=== PATIENT | male | born 1940 | race Caucasian/White ===

== ENCOUNTER 2016-10-16 12:46 | Outpatient (CLI) | payer MEDICARE, OTHER | END 2016-10-16 12:47 | disposition home or self-care (01) | DX: E11.8 Type 2 diabetes mellitus with unspecified complications (principal); R60.9 Edema, unspecified ==

== ENCOUNTER 2016-10-21 10:51 | Outpatient (CLI) | payer MEDICARE, OTHER ==
--- NOTE | 2016-10-21 15:16 | XRAY Report ---
TWO VIEW CHEST: 10/21/2016 CLINICAL INDICATION: Dyspnea on exertion. COMPARISON: 06/09/2011. FINDINGS: Frontal and lateral views of the chest demonstrate a normal cardiac silhouette. The lungs are clear. No effusion or pneumothorax is present. IMPRESSION: NORMAL CHEST. JOB #: [id number] EXT JOB #:[id number]
== END 2016-10-21 10:52 | disposition home or self-care (01) ==
LOC: DI.S 10:51
PROVIDERS: ATTEND Nurse Practitioner Family
DX: R06.09 Other forms of dyspnea (principal)
CPT/HCPCS: 71020

== ENCOUNTER 2016-11-20 13:39 | Outpatient (CLI) | payer MEDICARE, OTHER | END 2016-11-20 13:40 | disposition home or self-care (01) | DX: R53.83 Other fatigue (principal); R06.09 Other forms of dyspnea; I10 Essential (primary) hypertension ==

== ENCOUNTER 2016-11-24 13:02 | Outpatient (CLI) | payer MEDICARE, OTHER | END 2016-11-24 13:03 | disposition home or self-care (01) | DX: R53.83 Other fatigue (principal) ==

== ENCOUNTER 2016-12-10 12:26 | Outpatient (CLI) | payer MEDICARE, OTHER ==
[2016-12-10] MEDS ORDERED: ALBUTEROL NEB 2.5 MG/3 ML INH ONE (13:21)
== END 2016-12-10 12:27 | disposition home or self-care (01) ==
DX: R06.00 Dyspnea, unspecified (principal)
CPT/HCPCS: 94060; 94729; J7613

== ENCOUNTER 2016-12-22 09:41 | Outpatient (CLI) | payer MEDICARE, OTHER | END 2016-12-22 09:42 | disposition home or self-care (01) | DX: N18.3 Chronic kidney disease, stage 3 (moderate) (principal); E11.40 Type 2 diabetes mellitus with diabetic neuropathy, unspecified ==

== ENCOUNTER 2017-01-04 12:56 | Outpatient (CLI) | payer MEDICARE, OTHER | END 2017-01-04 12:57 | disposition home or self-care (01) | DX: D70.9 Neutropenia, unspecified (principal); N05.9 Unspecified nephritic syndrome with unspecified morphologic changes; R80.9 Proteinuria, unspecified ==

== ENCOUNTER 2017-01-28 12:29 | Outpatient (CLI) | payer MEDICARE, OTHER ==
--- NOTE | 2017-01-28 15:56 | CT Report ---
CT OF THE ABDOMEN AND PELVIS WITHOUT CONTRAST: 01/28/2017 CLINICAL INDICATION: Hematuria. TECHNIQUE: Axial CT images of the abdomen and pelvis were obtained without intravenous contrast. No p revious CT is available for comparison. FINDINGS: Limited evaluation of the lung bases demonstrates a 5 mm nodule in the posterior right low er lobe, as well as scattered atelectasis. ABDOMEN: The kidneys demonstrate no evidence of nephrolithiasis or hydronephrosis. No hydroureter is seen. A cyst is incidentally noted in the liver. The spleen, pancreas and adrenal glands appear unrem arkable, allowing for the lack of intravenous contrast. Cholelithiasis is present. No bowel dilatatio n, free gas, or free fluid is present. No abdominal adenopathy is appreciated. PELVIS: The appendix is seen in the right lower quadrant, and is normal in caliber. Sigmoid diverticu losis is present, without CT evidence of diverticulitis. No pelvic adenopathy or free fluid is presen t. There is possible focal wall thickening at the dome of the urinary bladder. Consider correlation w ith cystoscopy. The osseous structures demonstrate degenerative changes. IMPRESSION: 1. NO EVIDENCE OF NEPHROLITHIASIS TO EXPLAIN THE PATIENT'S HEMATURIA. CONSIDER FURTHER EVALUATION OF THE KIDNEYS AND COLLECTING SYSTEM WITH CT IVP. 2. POSSIBLE FOCAL THICKENING OF THE BLADDER WALL AT THE DOME. CONSIDER CORRELATION WITH CYSTOSCOPY. In accordance with CT protocol optimization, one or more of the following dose reduction techniques w ere utilized for this exam: automated exposure control, adjustment of mA and/or KV based on patient size, or use of iterative reconstructive technique. JOB #: [id number] EXT JOB #:[id number]
== END 2017-01-28 12:30 | disposition home or self-care (01) ==
LOC: DI 12:29
PROVIDERS: ATTEND Nurse Practitioner Family
DX: R31.21 Asymptomatic microscopic hematuria (principal)
CPT/HCPCS: 74176

== ENCOUNTER 2017-02-16 10:18 | Outpatient (CLI) | payer MEDICARE, OTHER ==
[2017-02-16 18:46] LABS: CALCIUM 8.8 mg/dL (8.5-10.3); CREATININE 2.2 mg/dL (0.6-1.2)
== END 2017-02-16 10:19 | disposition home or self-care (01) ==
LOC: LAB.F 10:18
PROVIDERS: ATTEND Nurse Practitioner Family
DX: R60.0 Localized edema (principal); N18.3 Chronic kidney disease, stage 3 (moderate)
CPT/HCPCS: 36415; 80048

== ENCOUNTER 2017-04-22 12:44 | Outpatient (CLI) | payer MEDICARE, OTHER ==
[2017-04-22 17:59] LABS: CALCIUM 8.9 mg/dL (8.5-10.3); CREATININE 2.3 mg/dL (0.6-1.2); POTASSIUM 4.2 mmol/L (3.5-5.0)
[2017-04-22 18:22] LABS: HEMOGLOBIN A1C 1.08 g/dL
== END 2017-04-22 12:45 | disposition home or self-care (01) ==
LOC: LAB.F 12:44
PROVIDERS: ATTEND Nurse Practitioner Family
DX: E11.9 Type 2 diabetes mellitus without complications (principal)
CPT/HCPCS: 36415; 80048; 83036

== ENCOUNTER 2017-05-27 11:39 | Emergency (ER) | payer MEDICARE, OTHER ==
[2017-05-27] MEDS ORDERED: SODIUM CHLORIDE 0.9% 1,000 ML IV ONE (12:07)
[2017-05-27 12:19] LABS: BASOPHILS # (AUTO) 0.1 10^3/uL (0.0-0.1); BASOPHILS % (AUTO) 0.8 %; EOSINOPHILS # (AUTO) 0.2 10^3/uL (0.0-0.7); EOSINOPHILS % (AUTO) 2.1 %; HCT - HEMATOCRIT 39.8 % (42.0-52.0); HGB - HEMOGLOBIN 13.4 g/dL (14.0-18.0); LYMPHOCYTES # (AUTO) 1.9 10^3/uL (1.5-3.5); LYMPHOCYTES % (AUTO) 21.2 %; MEAN CORPUSCULAR HEMOGLOBIN 29.3 pg (27.0-31.0); MEAN CORPUSCULAR HGB CONC 33.8 g/dL (32.0-36.0); MEAN CORPUSCULAR VOLUME 86.8 fL (80.0-94.0); MEAN PLATELET VOLUME 7.5 fL (7.4-11.4); MONOCYTES # (AUTO) 0.4 10^3/uL (0.0-1.0); MONOCYTES % (AUTO) 4.8 %; NEUTROPHILS # (AUTO) 6.5 10^3/uL (1.5-6.6); NEUTROPHILS % (AUTO) 71.1 %; RED BLOOD COUNT 4.58 10^6/uL (4.70-6.10); RED CELL DISTRIBUTION WIDTH 12.8 % (12.0-15.0); UNCORRECTED WHITE BLOOD COUNT 9.1 x10^3/uL; WHITE BLOOD COUNT 9.1 x10^3/uL (4.8-10.8)
[2017-05-27 12:32] LABS: ALBUMIN/GLOBULIN RATIO 0.9 (1.0-2.2); BILIRUBIN,TOTAL 0.4 mg/dL (0.2-1.0); BUN - BLOOD UREA NITROGEN 47 mg/dL (6-20); CALCIUM 8.9 mg/dL (8.5-10.3); CARBON DIOXIDE - CO2 28 mmol/L (21-32); CHLORIDE 98 mmol/L (101-111); CREATININE 2.4 mg/dL (0.6-1.2); GFR - MDRD 26 (>89); GLUCOSE 465 mg/dL (70-100); LIPASE 30 U/L (22-51); SODIUM 135 mmol/L (135-145); TOTAL PROTEIN 7.4 g/dL (6.7-8.2)
[2017-05-27 12:41] LABS: VBG BASE EXCESS -0.7 mmol/L (-2 - +2); VBG PH 7.273 (7.31-7.41); VBG TOTAL CO2 29.5 mmol/L (24-29)
[2017-05-27 12:42] LABS: VBG OXYGEN SATURATION 56.3 % (60-80)
--- NOTE | 2017-05-27 12:54 | ED Physician Documentation ---
History of Present Illness - Stated complaint Stated Complaint: BLOOD SUGAR HIGH/WEAKNESS - Chief complaint Chief Complaint: General - History obtained from History obtained from: Patient, Family, Friend - History of Present Illness Timing: Other (This is a 76-year-old gentleman with diabetes his blood sugars have been trending up over the last 2 weeks. Few months ago he was stable with most blood sugars in the high 100s but about 2 weeks ago started trending up and is slowly trended up and was up in the 500s last night. He is taking insulin and he has no specific complaints. 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 It has been there for a couple of months. There is no fever or chill, no cough or urinary complaints except for frequency.) Review of Systems Ten Systems: 10 systems reviewed and negative Constitutional: denies: Fever, Chills Nose: denies: Rhinorrhea / runny nose, Congestion Cardiac: denies: Chest pain / pressure, Palpitations Respiratory: denies: Dyspnea, Cough GI: denies: Abdominal Pain, Nausea, Vomiting PD PAST MEDICAL HISTORY - Past Medical History Cardiovascular: Hypertension, High cholesterol Endocrine/Autoimmune: Type 2 diabetes : Benign prostate hypertrophy, Incontinence, Renal insuffiency, Frequency - Present Medications Home Medications: Ambulatory Orders Medication Instructions Recorded Confirmed Furosemide 80 mg PO DAILY 06/07/14 05/27/17 Insulin NPH Human Isophane 30 unit SQ QDBREAKFAST 06/07/14 05/27/17 [Novolin N] Insulin Regular Human [NovoLIN R] 15 units SUBQ DAILY PM 06/07/14 05/27/17 Lisinopril 40 mg PO DAILY 06/07/14 05/27/17 Insulin Regular, Human [Novolin R] 11 unit SUBQ QDBREAKFAST 08/03/14 05/27/17 Carvedilol 12.5 mg PO BID 05/27/17 05/27/17 Insulin NPH Human Isophane 22 unit SUBQ DAILY PM 05/27/17 05/27/17 [Novolin N] - Allergies Allergies/Adverse Reactions: Allergies Allergy/AdvReac Type Severity Reaction Status Date / Time No Known Drug Allergies Allergy Verified 06/07/14 14:32 - Social History Smoking Status: Never smoker PD ED PE NORMAL - Vitals Vital signs reviewed: Yes - General General: Alert and oriented X 3, No acute distress - HEENT HEENT: PERRL, EOMI - Neck Neck: Supple, no meningeal sign, No bony TTP - Cardiac Cardiac: RRR, No murmur - Respiratory Respiratory: No respiratory distress, Clear bilaterally - Abdomen Abdomen: Normal bowel sounds, Soft, Non tender - Back Back: No CVA TTP, No spinal TTP - Derm Derm: Normal color, Warm and dry - Extremities Extremities: No edema, No calf tenderness / cord - Neuro Neuro: Alert and oriented X 3, Normal speech Results - Vitals Vitals: Vital Signs - 24 hr 05/27/17 05/27/17 11:44 13:53 Temperature 36.8 C Heart Rate 89 84 Respiratory 20 18 Rate Blood Pressure 159/96 H 159/78 H O2 Saturation 97 96 Oxygen O2 Source Room air - Labs Labs: Laboratory Tests 05/27/17 05/27/17 05/27/17 11:48 11:52 11:52 WBC 9.1 RBC 4.58 L Hgb 13.4 L Hct 39.8 L MCV 86.8 MCH 29.3 MCHC 33.8 RDW 12.8 Plt Count 246 MPV 7.5 Neut # 6.5 Lymph # 1.9 Solano # 0.4 Eos # 0.2 Baso # 0.1 Absolute Nucleated RBC 0.00 Nucleated RBCs 0.0 VBG pH VBG pCO2 VBG pO2 VBG HCO3 VBG Total CO2 VBG O2 Saturation VBG Base Excess Sodium 135 Potassium 4.0 Chloride 98 L Carbon Dioxide 28 Anion Gap 9.0 BUN 47 H Creatinine 2.4 H Estimated GFR (MDRD) 26 L Glucose 465 H POC Whole Bld Glucose 426 H Calcium 8.9 Total Bilirubin 0.4 AST 25 ALT 17 Alkaline Phosphatase 93 Total Protein 7.4 Albumin 3.5 Globulin 3.9 Albumin/Globulin Ratio 0.9 L Lipase 30 Serum Ketones NEGATIVE 05/27/17 05/27/17 12:33 14:08 WBC RBC Hgb Hct MCV MCH MCHC RDW Plt Count MPV Neut # Lymph # Solano # Eos # Baso # Absolute Nucleated RBC Nucleated RBCs VBG pH 7.273 L VBG pCO2 61.1 H VBG pO2 29.7 VBG HCO3 27.6 VBG Total CO2 29.5 H VBG O2 Saturation 56.3 L VBG Base Excess -0.7 Sodium Potassium Chloride Carbon Dioxide Anion Gap BUN Creatinine Estimated GFR (MDRD) Glucose POC Whole Bld Glucose 320 H Calcium Total Bilirubin AST ALT Alkaline Phosphatase Total Protein Albumin Globulin Albumin/Globulin Ratio Lipase Serum Ketones PD MEDICAL DECISION MAKING - ED course ED course: 76-year-old gentleman presents with uncontrolled blood sugars. There is no evidence of DKA. There is a small lesion on his chest, it looks like a pyogenic granuloma, they were worried about MRSA and a culture was sent. He was administered IV fluids and IV insulin here with improvement in his blood sugar. We will increase his home regimen a bit pending outpatient follow-up. 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 And increase your Novolin R to 12 units in the morning, 17 units in the evening. We are performing a wound culture, the results should be done in 48-72 hours. Your blood pressure was elevated today on check into the emergency department. This does not mean that you have hypertension, it is a common phenomenon to come to the emergency department and have elevated blood pressure. I recommend that she see your primary care physician within the week to have it rechecked when you are feeling better.
[2017-05-27] MEDS ORDERED: INSULIN REGULAR HUMAN 100 UNIT/1 ML 10 ML MDV IVP STA (12:57)
[2017-05-27] MEDS ORDERED: INSULIN REGULAR HUMAN 100 UNIT/1 ML 10 ML MDV ONE (13:03)
[2017-05-27 14:52] VITALS: BP 150/74
== END 2017-05-27 14:51 | disposition home or self-care (01) ==
LOC: ED 11:39
DX: L98.0 Pyogenic granuloma (principal); E11.65 Type 2 diabetes mellitus with hyperglycemia; I10 Essential (primary) hypertension; Z79.4 Long term (current) use of insulin
CPT/HCPCS: 36415; 80053; 82009; 82803; 83690; 85025; 87070; 87205; 96361; 96374; 99283; 99284; J1815

== ENCOUNTER 2017-05-28 14:58 | Outpatient (CLI) | payer MEDICARE, OTHER ==
[2017-05-28 18:48] LABS: BILIRUBIN,TOTAL 0.3 mg/dL (0.2-1.0); BUN - BLOOD UREA NITROGEN 44 mg/dL (6-20); CALCIUM 8.9 mg/dL (8.5-10.3); CARBON DIOXIDE - CO2 28 mmol/L (21-32); CHLORIDE 100 mmol/L (101-111); CHOL/HDL RATIO 4.1 (<5.0); CHOLESTEROL 175 mg/dL; GFR - MDRD 33 (>89); GLUCOSE 397 mg/dL (70-100); HDL CHOLESTEROL 43 mg/dL; POTASSIUM 4.2 mmol/L (3.5-5.0); SODIUM 135 mmol/L (135-145); TOTAL PROTEIN 7.3 g/dL (6.7-8.2); TRIGLYCERIDES 414 mg/dL
[2017-05-28 20:43] LABS: LDL CHOLESTEROL,DIRECT 86 mg/dL
== END 2017-05-28 14:59 | disposition home or self-care (01) ==
LOC: LAB.F 14:58
PROVIDERS: ATTEND Internal Medicine
DX: E11.65 Type 2 diabetes mellitus with hyperglycemia (principal); E78.00 Pure hypercholesterolemia, unspecified; I10 Essential (primary) hypertension
CPT/HCPCS: 36415; 80053; 80061

== ENCOUNTER 2017-06-24 10:57 | Outpatient (CLI) | payer MEDICARE, OTHER ==
--- NOTE | 2017-06-24 13:02 | Ultrasound Report ---
RENAL ULTRASOUND: 06/24/2017 CLINICAL INDICATION: Urinary incontinence. TECHNIQUE: Real-time scanning was performed with enrollment eligibility representative static images obtained. FINDINGS: Right kidney measures 12.1 x 6.0 x 5.4 cm. There is a 1.4 cm cortical cyst. No hydroneph rosis, solid renal lesion, or perinephric collection is seen. The left kidney measures 12.0 x 5.6 x 5.6 cm. No hydronephrosis, solid renal lesion, or perinephric collection is seen. Prevoid, the bladder measures 7.5 x 6.5 x 4.9 cm, yielding a prevoid volume of 125 mL. Bilateral ure teral jets are visualized. No focal bladder wall lesion is seen. The prostate appears prominent, me asuring 6.6 x 5.5 x 4.4 cm. Postvoid residual is 18 mL. IMPRESSION: INCIDENTAL RIGHT RENAL CYST. NO SIGNIFICANT POSTVOID RESIDUAL. JOB #: [id number] EXT JOB #:[id number]
== END 2017-06-24 10:58 | disposition home or self-care (01) ==
LOC: DI 10:57
PROVIDERS: ATTEND Internal Medicine
DX: R32 Unspecified urinary incontinence (principal)
CPT/HCPCS: 76770

== ENCOUNTER 2017-07-29 07:20 | Outpatient (CLI) | payer MEDICARE, OTHER ==
[2017-07-29 12:09] LABS: BUN - BLOOD UREA NITROGEN 30 mg/dL (6-20); CALCIUM 8.5 mg/dL (8.5-10.3); CARBON DIOXIDE - CO2 26 mmol/L (21-32); CHLORIDE 105 mmol/L (101-111); CHOL/HDL RATIO 3.1 (<5.0); CHOLESTEROL 129 mg/dL; GFR - MDRD 33 (>89); GLUCOSE 115 mg/dL (70-100); HDL CHOLESTEROL 42 mg/dL; LDL/HDL RATIO 1.5 (<3.6); POTASSIUM 3.8 mmol/L (3.5-5.0); SODIUM 140 mmol/L (135-145); TRIGLYCERIDES 129 mg/dL; VLDL CHOLESTEROL 26 mg/dL
[2017-07-29 12:12] LABS: HEMOGLOBIN A1C 0.9 g/dL
[2017-07-29 12:20] LABS: THYROID STIMULATING HORMONE 5.74 uIU/mL (0.34-5.60)
== END 2017-07-29 07:21 | disposition home or self-care (01) ==
LOC: LAB.F 07:20
PROVIDERS: ATTEND Nurse Practitioner Family
DX: E11.65 Type 2 diabetes mellitus with hyperglycemia (principal); N18.3 Chronic kidney disease, stage 3 (moderate); E78.5 Hyperlipidemia, unspecified; E03.9 Hypothyroidism, unspecified
CPT/HCPCS: 36415; 80048; 80061; 83036; 84432; 84439; 84443; 86800

== ENCOUNTER 2017-08-19 14:15 | Outpatient (CLI) | payer MEDICARE, OTHER ==
[2017-08-19 18:03] LABS: ALBUMIN/GLOBULIN RATIO 0.8 (1.0-2.2); BILIRUBIN,TOTAL 0.3 mg/dL (0.2-1.0); CALCIUM 8.6 mg/dL (8.5-10.3); CREATININE 2.1 mg/dL (0.6-1.2); POTASSIUM 3.6 mmol/L (3.5-5.0); TOTAL PROTEIN 6.6 g/dL (6.7-8.2)
== END 2017-08-19 14:16 | disposition home or self-care (01) ==
LOC: LAB.F 14:15
PROVIDERS: ATTEND Physician Assistant Medical
DX: E11.40 Type 2 diabetes mellitus with diabetic neuropathy, unspecified (principal)
CPT/HCPCS: 36415; 80053

== ENCOUNTER 2017-08-26 15:18 | Outpatient (CLI) | payer MEDICARE, OTHER ==
[2017-08-26 19:16] LABS: ALBUMIN/GLOBULIN RATIO 0.9 (1.0-2.2); BILIRUBIN,TOTAL 0.2 mg/dL (0.2-1.0); CALCIUM 8.5 mg/dL (8.5-10.3); CREATININE 1.9 mg/dL (0.6-1.2); POTASSIUM 3.8 mmol/L (3.5-5.0)
== END 2017-08-26 15:19 | disposition home or self-care (01) ==
LOC: LAB.F 15:18
PROVIDERS: ATTEND Physician Assistant Medical
DX: E11.22 Type 2 diabetes mellitus with diabetic chronic kidney disease (principal); I50.9 Heart failure, unspecified
CPT/HCPCS: 36415; 80053; 83880

== ENCOUNTER 2017-09-20 10:54 | Outpatient (CLI) | payer MEDICARE, OTHER | END 2017-09-20 10:55 | disposition home or self-care (01) | LOC: LAB.F 10:54 | PROVIDERS: ATTEND Family Medicine | DX: R60.9 Edema, unspecified (principal); I50.9 Heart failure, unspecified; E78.00 Pure hypercholesterolemia, unspecified; E11.22 Type 2 diabetes mellitus with diabetic chronic kidney disease; N18.3 Chronic kidney disease, stage 3 (moderate); E03.9 Hypothyroidism, unspecified; I12.9 Hypertensive chronic kidney disease with stage 1 through stage 4 chronic kidney disease, or unspecified chronic kidney disease ==

== ENCOUNTER 2017-09-21 08:40 | Outpatient (CLI) | payer MEDICARE, OTHER ==
[2017-09-21 19:41] LABS: BASOPHILS % (AUTO) 0.5 %; EOSINOPHILS # (AUTO) 0.6 10^3/uL (0.0-0.7); EOSINOPHILS % (AUTO) 7.3 %; HGB - HEMOGLOBIN 11.9 g/dL (14.0-18.0); LYMPHOCYTES # (AUTO) 2.4 10^3/uL (1.5-3.5); LYMPHOCYTES % (AUTO) 28.1 %; MEAN CORPUSCULAR HGB CONC 32.5 g/dL (32.0-36.0); MEAN CORPUSCULAR VOLUME 89.3 fL (80.0-94.0); MEAN PLATELET VOLUME 8.2 fL (7.4-11.4); MONOCYTES # (AUTO) 0.6 10^3/uL (0.0-1.0); MONOCYTES % (AUTO) 7.6 %; NEUTROPHILS # (AUTO) 4.8 10^3/uL (1.5-6.6); NEUTROPHILS % (AUTO) 56.5 %; PLT - PLATELET COUNT 268 10^3/uL (130-450); RED CELL DISTRIBUTION WIDTH 13.4 % (12.0-15.0); WHITE BLOOD COUNT 8.4 x10^3/uL (4.8-10.8)
[2017-09-21 19:53] LABS: HB2 TOTAL 12.5 g/dL; HEMOGLOBIN A1C 0.59 g/dL; HEMOGLOBIN A1C % 6.5 % (4.6-6.2)
[2017-09-21 20:17] LABS: ALBUMIN/GLOBULIN RATIO 0.9 (1.0-2.2); ALKALINE PHOSPHATASE 84 IU/L (42-121); ALT ALANINE AMINOTRANSFERASE 14 IU/L (10-60); AST ASPARTATE AMINOTRANSFERASE 21 IU/L (10-42); BILIRUBIN,TOTAL 0.2 mg/dL (0.2-1.0); BUN - BLOOD UREA NITROGEN 45 mg/dL (6-20); CALCIUM 8.2 mg/dL (8.5-10.3); CARBON DIOXIDE - CO2 20 mmol/L (21-32); CHLORIDE 111 mmol/L (101-111); CHOL/HDL RATIO 2.8 (<5.0); CHOLESTEROL 128 mg/dL; CREATININE 2.4 mg/dL (0.6-1.2); GFR - MDRD 26 (>89); GLUCOSE 132 mg/dL (70-100); HDL CHOLESTEROL 45 mg/dL; LDL CHOLESTEROL,CALCULATED 57 mg/dL; LDL/HDL RATIO 1.3 (<3.6); SODIUM 140 mmol/L (135-145); TOTAL PROTEIN 6.5 g/dL (6.7-8.2); VLDL CHOLESTEROL 26 mg/dL
== END 2017-09-21 08:41 | disposition home or self-care (01) ==
LOC: LAB.F 08:40
PROVIDERS: ATTEND Family Medicine
DX: I12.9 Hypertensive chronic kidney disease with stage 1 through stage 4 chronic kidney disease, or unspecified chronic kidney disease (principal); E11.22 Type 2 diabetes mellitus with diabetic chronic kidney disease; R60.9 Edema, unspecified; I50.9 Heart failure, unspecified; E78.00 Pure hypercholesterolemia, unspecified; N18.3 Chronic kidney disease, stage 3 (moderate); E03.9 Hypothyroidism, unspecified
CPT/HCPCS: 36415; 80053; 80061; 83036; 84443; 85025

== ENCOUNTER 2017-10-22 13:17 | Outpatient (CLI) | payer MEDICARE, OTHER ==
[2017-10-22 18:12] LABS: CALCIUM 8.6 mg/dL (8.5-10.3); CREATININE 2.2 mg/dL (0.6-1.2)
== END 2017-10-22 13:18 | disposition home or self-care (01) ==
LOC: LAB.F 13:17
PROVIDERS: ATTEND Family Medicine
DX: R60.9 Edema, unspecified (principal); I50.9 Heart failure, unspecified; E11.40 Type 2 diabetes mellitus with diabetic neuropathy, unspecified; N18.3 Chronic kidney disease, stage 3 (moderate); I12.9 Hypertensive chronic kidney disease with stage 1 through stage 4 chronic kidney disease, or unspecified chronic kidney disease
CPT/HCPCS: 36415; 80048

== ENCOUNTER 2017-11-01 13:27 | Outpatient (CLI) | payer MEDICARE, OTHER ==
[2017-11-01 19:30] LABS: CALCIUM 8.5 mg/dL (8.5-10.3); CREATININE 2.9 mg/dL (0.6-1.2)
== END 2017-11-01 13:28 | disposition home or self-care (01) ==
LOC: LAB.F 13:27
PROVIDERS: ATTEND Family Medicine
DX: I50.9 Heart failure, unspecified (principal); N18.3 Chronic kidney disease, stage 3 (moderate)
CPT/HCPCS: 36415; 80048; 83880

== ENCOUNTER 2017-11-08 08:00 | Outpatient (CLI) | payer MEDICARE, OTHER ==
[2017-11-08 18:29] LABS: ALBUMIN 3.4 g/dL (3.2-5.5); BILIRUBIN,TOTAL 0.4 mg/dL (0.2-1.0); CALCIUM 8.6 mg/dL (8.5-10.3); CREATININE 3.2 mg/dL (0.6-1.2); TOTAL PROTEIN 6.9 g/dL (6.7-8.2)
== END 2017-11-08 08:01 | disposition home or self-care (01) ==
LOC: LAB.F 08:00
PROVIDERS: ATTEND Physician Assistant Medical
DX: N18.3 Chronic kidney disease, stage 3 (moderate) (principal)
CPT/HCPCS: 36415; 80053

== ENCOUNTER 2017-11-15 11:11 | Outpatient (CLI) | payer MEDICARE, OTHER ==
[2017-11-15 18:07] LABS: ALBUMIN 3.6 g/dL (3.2-5.5); ALBUMIN/GLOBULIN RATIO 1.1 (1.0-2.2); BILIRUBIN,TOTAL 0.3 mg/dL (0.2-1.0); CALCIUM 8.9 mg/dL (8.5-10.3); CREATININE 2.7 mg/dL (0.6-1.2); TOTAL PROTEIN 6.9 g/dL (6.7-8.2)
== END 2017-11-15 11:12 | disposition home or self-care (01) ==
LOC: LAB.F 11:11
PROVIDERS: ATTEND Family Medicine
DX: N18.3 Chronic kidney disease, stage 3 (moderate) (principal); R06.9 Unspecified abnormalities of breathing
CPT/HCPCS: 36415; 80053

== ENCOUNTER 2017-11-15 14:45 | Outpatient (CLI) | payer MEDICARE, OTHER ==
--- NOTE | 2017-11-15 19:05 | CONSULTATION NOTE ---
Palliative Care Consultation - Referral Referring Provider: Natalie Guadalupe PA-C Time of Visit: 4800-2802 Referral setting: Home (This is a taxing considerable effort for the patient leave the home, he does have lower extremity weakness and loss of balance as well as dyspnea on exertion. Also to facilitate treatment plan and family conferencing.) Referral Reason: Renal Failure/Goals of Care - Information Sources Records reviewed: RN notes reviewed, Previous records reviewed History/Review of Systems obtained from: Patient, Family (Evelyn present for visit; friend Luanne) Exam limitations: Clinical condition (She was short-term memory deficits, and limited insight into his current condition) - History of Present Illness Brief History of Present Illness: This is a 77-year-old gentleman who has long-term health problems and multiple co-morbidities. Most recently has had an exacerbation of his kidney failure, this is acutely exacerbated with his lower extremity edema recent week of metolozone for 7 days. He has been having his diuretics titrated by PCP, has continued to lose fluid weight, though still presents with fairly significant lower extremity edema. His biggest symptom has been his fatigue, and anorexia, and overall weakness. He is quite sedentary, does spend most of his time in the recliner, he is incontinent of urine, and has frequency. He also presents today with a fairly severe groin rash on the left, with moist desquamation and foul smell. His lungs are clear, he reports he did have cold and congestion for several weeks, reports this is resolving. He though does report shortness of breath at rest, though he does not appear in respiratory distress he does have a baseline respiratory rate of 20. His has been feeling quite overwhelmed , with his increased care needs, frequent medication adjustments, and fluctuating blood sugars. He has had no further hypoglycemic episodes though. She has been taking responsibility and has been feeling stressed. They will benefit greatly from home health support, but will need a long-term plan for managing his increasing care needs, at this point in time he does not meet hospice criteria but will continue to monitor through palliative care for appropriate transition Medical/Surgical History - Past Medical History Cardiovascular: reports: Hypertension, High cholesterol Respiratory: reports: Shortness of breath Neuro: reports: Other (STM deficits) Endocrine/Autoimmune: reports: Type 2 diabetes : reports: Benign prostate hypertrophy, Incontinence, Renal insuffiency, Frequency HEENT: reports: Chronic vision loss, Other (dentures) Psych: reports: Depression, Anxiety Musculoskeletal: reports: Osteoarthritis, Fatigue, Chronic back pain, Other ( chronic left ankle pain) Derm: reports: Other (rash in groin) MRSA Hx?: No - Past Surgical History Ortho: reports: Spine surgery Derm: reports: Skin cancer surgery (squamous on chest) - Substance History Dependence: Experiences withdrawal or developed tolerances: Alcohol (patient stopped drinking about 5 years ago; was heavy abuser) Social History - Living Situation Living arrangement: At home Living Situation: With spouse/s.o. (Has been with Antonio, for 30 years, they have been for 20 years. He does have a daughter who he has been estranged with for the last 5 years, but is intouch with his son-in-law. He is very attached to his grandson who is 19 and granddaughters 13 though he does not see them very often.) Support System: Evelyn has no family or other support in the area, they do have a neighbor Luanne who provides oversight and support. Evelyn herself has fibromyalgia and multiple health problems. They are financially stressed, and cannot afford current assistance. Patient has spent much time in [place], he worked for a [employer] in [employer]. He has lived on [facility] since the s. Family History - Family History Family History: Mother: , COPD/Emphysema, Father: , COPD/ Emphysema, Brother: , Alcoholism Medications/Allergies - Medications Home Medications: Ambulatory Orders Medication Instructions Recorded Confirmed Lisinopril 40 mg PO DAILY 06/07/14 11/15/17 Carvedilol 12.5 mg PO BID 05/27/17 11/15/17 Acetaminophen [Tylenol Extra 500 mg PO Q4HR PRN 11/15/17 11/15/17 Strength] Amlodipine Besylate 10 mg PO DAILY 11/15/17 11/15/17 Aspirin 81 mg PO DAILY 11/15/17 11/15/17 Atorvastatin Calcium 40 mg PO QPM 11/15/17 11/15/17 Hydralazine HCl 25 mg PO BID 11/15/17 11/15/17 Insulin Aspart [NovoLOG] 18 units SUBQ DAILY PM 11/15/17 11/15/17 Insulin Regular Human [NovoLIN R] 5 units SUBQ DAILY PM 11/15/17 11/15/17 Insulin Regular Human [NovoLIN R] 17 unit SUBQ QDBREAKFAST 11/15/17 11/15/17 Levothyroxine [Synthroid] 25 mg PO DAILY 11/15/17 11/15/17 Nortriptyline [Pamelor] 25 mg PO QPM 11/15/17 11/15/17 Nystatin 1 applic TOP BID 11/15/17 11/15/17 Polyethylene Glycol 3350 [Miralax] 17 gm PO DAILY 11/15/17 11/15/17 Terazosin [Hytrin] 5 mg PO QPM 11/15/17 11/15/17 Torsemide 40 mg PO QDBREAKFAST 11/15/17 11/15/17 - Allergies Allergies/Adverse Reactions: Allergies Allergy/AdvReac Type Severity Reaction Status Date / Time No Known Drug Allergies Allergy Verified 06/07/14 14:32 Review of Systems - Constitutional Constitutional: reports: Fatigue, Weakness, Poor appetite, Weight loss (224) - Eyes Eyes: reports: Vision loss - Ears, Nose & Throat Ears, Nose & Throat: reports: Hearing loss, Other (dentures) - Cardiovascular Cardiovascular: reports: Edema, Exertional dyspnea, Decr. exercise tolerance. denies: Chest pain - Respiratory Respiratory: reports: Cough (resolving; had "cold and wheezing for 3 weeks"), SOB at rest, SOB with exertion - Gastrointestinal Gastrointestinal: reports: Constipation (managed with mirlax), Bloating, Poor appetite, Early satiety. denies: Black stools, Nausea - Genitourinary Genitourinary: reports: Frequency, Urgency, Incontinence - Musculoskeletal Musculoskeletal: reports: Muscle pain, Back pain, Muscle aches, Stiffness, Limited range of motion, Muscle weakness - Integumentary Integumentary: reports: Rash (groin) - Neurological Neurological: reports: General weakness, Memory problems, Abnormal gait - Psychiatric Psychiatric: reports: Depression, Anxiety. denies: Suicidal - Endocrine Endocrine: reports: Diabetes type 2, Hypothyroidism - Hematologic/Lymphatic Hematologic/Lymphatic: reports: Anemia - All Other Systems All Other Systems: reports: Reviewed and negative Physical Exam - Vital Signs Temperature: 98.2 C Pulse Rate: 64 Respiratory Rate: 20 O2 Saturation: 98 (ra @ rest) Blood Pressure: 132/78 - Physical Exam General Appearance: positive: No acute distress, Anxious Eyes Bilateral: positive: Conjunctivae nml ENT: positive: No signs of dehydration Neck: positive: Trachea midline, Other (thick short neck;). negative: Lymphadenopathy (R), Lymphadenopathy (L) Cardiovascular: positive: Regular rate & rhythm Respiratory: positive: Diminished in bases. negative: Wheezes, Rales, Rhonchi Abdomen: positive: Soft, Nml bowel sounds, Tenderness, Distended, Obese Skin: positive: Rash (moist smelly desquamation in left groin fold; right reddened but not open;), Other (legs with skin plaques; had been to Dr. Payton this AM nails trimmed) Extremities: positive: Pedal edema (pitting and 3 + to mid calf; reports improved from baseline), Other (gait rushed; "teeters" when walks) Neurologic/Psychiatric: positive: Disoriented to time, Weakness Palliative Care - POLST Patient has POLST: Yes POLST Status: DNR, Selective Treatment (completed at visit) Pain: Pain worsening, Location (left ankle like a "toothache" reports about 10 years; worse at night) Tiredness/Fatigue: Severe (7-10) Drowsiness/Sedation: Moderate (4-6) Nausea: None Depression: Mild (1-3) Anxiety: Moderate (4-6) Dyspnea: Moderate (4-6) Anorexia: Mild (1-3) Sleep: Variable sleep pattern (up at night 8+ times to void) Constipation: Yes, Managed Feelings of wellbeing/Perceived Quality of Life: Fair, Worsening Performance Status: Patient has been fairly sedentary for over 10 years, much less active over the last 5 years and has deteriorated fairly quickly over the last 6 months. He is unable to bathe, is just doing spit baths, does present with poor hygiene. is unable to assist him, patient will need bathing assistance as well as instruction and bathroom set up. Patient does have very poor balance, he does have a walker and cane but needs training. He does have no foot wear, but is to get fitted for diabetic shoes this . He is quite sedentary in nature overall, we did discuss at length the need to engage if he wants to improve in program with the therapist, at this point in time he is saying that this is his goal. - Palliative Care Discussion: His Don is his DPO ACale his son-in-law is the second. Patient does have a living will and directives regarding his end-of-life wishes. We did discuss in the context of the continuum of care particularly with the seriousness of his illness and need for a ELE[facility]. We did complete this with a do not attempt resuscitation and selected treatments. At end of life he would like to have a at home, he is not interested in any kind of intubation, or prolonging suffering. He would accept interventions at this point in time. He is unclear whether he would consider pursuing dialysis though I suspect given the conversation we had most likely not. Patient has very little insight or understanding when asked about his disease. He reports "I do not understand it that well". He does admit that he has had decline, though his long-term goal is to be more active and able to take his grandson to [place] this summer. His is quite overwhelmed, with his multiple needs, she has been managing his medications, blood sugars, and taking vital signs. This is remained quite stressful for her. She will benefit from home health support. We did discuss and hoping for the best, as far as stabilizing his downward trend with his kidneys, but also may need to consider if does not improve being prepared for the worst. They are both hopeful that they will be some improvement in his quality as well as quantity of life over the next few weeks. Patient's most really concerned about the stress he is putting on his , he does report that some of this is result of his lifestyle choices including his heavy drinking and poor management of his diabetes. 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 Patient will benefit from home health care team support, as well as ongoing palliative care to address goals of care, symptom management, and transition to hospice when appropriate. Recommendations/Counseling Done: 1.Candidiasis, right groin. Patient does need support for his personal hygiene. Will have home health aide initiate as soon as possible. Also ordered nystatin topical powder, areas to moist for cream at this point in time. They have had cream in the past did discourage use of mupirocin unclear if she has been using it or if just available. Counseling regarding need for better hygiene and care of the area. It does to quite a bit of distress to caregiver, as it is quite odorous. 2. Muscle weakness. Patient's gait is somewhat unstable, as this is due to balance, neuropathy, and weakness. He does have walker and canes available, but is untrained at this point in time to use. Will need physical therapy for training and home exercise program. He is weak getting from sitting to standing. He mostly ambulates in the house only. He has had a history of falls but nothing recently. 3. CHF. Patient is getting his labs drawn today, his lower extremity edema per his and patient has improved some. He is getting diabetic shoes which should help as far as comfort. is appropriately taking weights, and vital signs for review. Currently they do look like they are improving. Both will benefit from nursing support for disease management and instruction. She is managing the medications, though she is easily flustered. She does have a Mediset's they do look correct from the list I am working from. 4. Acute on chronic renal failure. Suspect patient's numbers will improve, had been on metaxalone for greater than a week. Will need continued monitoring , home health nurse would be able to drop labs which should be of benefit to the patient and . 5. Advanced care planning. Patient presents with little insight into the seriousness of his condition, but does express feelings of guilt and grief and loss regarding loss of independence. We did complete a ELENA ST, patient currently does not meet criteria for hospice, but will benefit strongly from home health support. Agreed would watch over the next few weeks for his "new normal". If he does continue to decline can revisit this his goals are to have a at home, avoid hospitalization, and heroic measures. Counseling regarding use of the pulse, it is to be posted on the refrigerator, as well as introduced the home health care team. [id number] for home health. RN for teaching regarding medications and medication adherence, management of diabetic feet, skin care, and teaching regarding CHF. PT for home safety eval, lower extremity strengthening, gait training with appropriate assistive device, and equipment recommendations. OT for bathing set up, and ADL management, as well as cognitive evaluation. Patient may benefit from [facility] is unsafe to leave at home. Home health aide as soon as possible for personal care and assistance, patient is unable to bathe independently and is concerned regarding her ability to assist him. INFORMATION TECHNOLOGY ADVISOR patient would benefit from application to COPD ES program also interested in exploring Meals on Wheels, and counseling for adjustment to illness and grief and loss. Thank you Natalie Guadalupe for asking the palliative care consult service to be involved in the care of your patient, recommend home health as the primary layer of support at this point in time, will continue to follow and more intensely on discharge. Patient does present as quite frail. On the DRE index which is a prognostic indicator for population of community dwelling adults age 68 year older with the outcome of all causes 1 year mortality. He does score a total of 6 which does put him at 25%. Risk calculators cannot predict the future for any one individual but given an estimate of how many people with similar risk factors will live and but cannot identify who will live and he will . If patient continues to decline and renal status, will need further assistance as far as weighing benefits of burdens regarding dialysis in the future. Time Spent: 75 minutes with greater than 50% of this done in counseling regarding disease management goals of care, appropriate resources, and anticipatory guidance
== END 2017-11-15 14:46 | disposition home or self-care (01) ==
LOC: PC 14:45
PROVIDERS: ATTEND Nurse Practitioner Adult Health
DX: Z51.5 Encounter for palliative care (principal); B37.2 Candidiasis of skin and nail; M62.81 Muscle weakness (generalized); I50.9 Heart failure, unspecified; R60.0 Localized edema; F10.11 Alcohol abuse, in remission; Z79.82 Long term (current) use of aspirin; Z79.4 Long term (current) use of insulin; E11.40 Type 2 diabetes mellitus with diabetic neuropathy, unspecified; E11.21 Type 2 diabetes mellitus with diabetic nephropathy; N18.9 Chronic kidney disease, unspecified; Z66 Do not resuscitate
CPT/HCPCS: 99345

== ENCOUNTER 2017-11-29 13:34 | Outpatient (CLI) | payer MEDICARE, OTHER ==
[2017-11-29 18:03] LABS: BASOPHILS % (AUTO) 0.6 %; EOSINOPHILS # (AUTO) 0.4 10^3/uL (0.0-0.7); EOSINOPHILS % (AUTO) 4.6 %; HGB - HEMOGLOBIN 11.5 g/dL (14.0-18.0); LYMPHOCYTES % (AUTO) 25.2 %; MEAN CORPUSCULAR HEMOGLOBIN 28.4 pg (27.0-31.0); MEAN CORPUSCULAR HGB CONC 32.3 g/dL (32.0-36.0); MEAN PLATELET VOLUME 7.6 fL (7.4-11.4); MONOCYTES # (AUTO) 0.6 10^3/uL (0.0-1.0); MONOCYTES % (AUTO) 8.1 %; NEUTROPHILS # (AUTO) 4.8 10^3/uL (1.5-6.6); NEUTROPHILS % (AUTO) 61.5 %; PLT - PLATELET COUNT 279 10^3/uL (130-450); RED BLOOD COUNT 4.04 10^6/uL (4.70-6.10); RED CELL DISTRIBUTION WIDTH 12.7 % (12.0-15.0); WHITE BLOOD COUNT 7.7 x10^3/uL (4.8-10.8)
[2017-11-29 18:22] LABS: ALBUMIN 3.8 g/dL (3.2-5.5); ALBUMIN/GLOBULIN RATIO 1.1 (1.0-2.2); BILIRUBIN,TOTAL 0.3 mg/dL (0.2-1.0); CALCIUM 8.9 mg/dL (8.5-10.3); CREATININE 2.5 mg/dL (0.6-1.2); TOTAL PROTEIN 7.2 g/dL (6.7-8.2)
== END 2017-11-29 13:35 | disposition home or self-care (01) ==
LOC: LAB.F 13:34
PROVIDERS: ATTEND Family Medicine
DX: R60.9 Edema, unspecified (principal); I50.9 Heart failure, unspecified; B37.2 Candidiasis of skin and nail; E11.65 Type 2 diabetes mellitus with hyperglycemia; I10 Essential (primary) hypertension
CPT/HCPCS: 36415; 80053; 83880; 85025

== ENCOUNTER 2017-12-07 13:58 | Outpatient (CLI) | payer MEDICARE, OTHER ==
[2017-12-07 18:05] LABS: CREATININE,URINE 68.9 mg/dL
== END 2017-12-07 13:59 | disposition home or self-care (01) ==
LOC: LAB.F 13:58
PROVIDERS: ATTEND Internal Medicine Nephrology
DX: I50.9 Heart failure, unspecified (principal); N18.3 Chronic kidney disease, stage 3 (moderate); R60.9 Edema, unspecified; R80.9 Proteinuria, unspecified
CPT/HCPCS: 36415; 80053; 82570; 83970; 84156; 85025

== ENCOUNTER 2017-12-27 09:58 | Outpatient (CLI) | payer MEDICARE, OTHER ==
[2017-12-27 19:08] LABS: CALCIUM 8.8 mg/dL (8.5-10.3); CREATININE 2.7 mg/dL (0.6-1.2)
[2017-12-27 19:20] LABS: BASOPHILS # (AUTO) 0.1 10^3/uL (0.0-0.1); BASOPHILS % (AUTO) 0.6 %; EOSINOPHILS # (AUTO) 0.4 10^3/uL (0.0-0.7); HGB - HEMOGLOBIN 12.3 g/dL (14.0-18.0); LYMPHOCYTES # (AUTO) 2.1 10^3/uL (1.5-3.5); MEAN CORPUSCULAR HEMOGLOBIN 29.1 pg (27.0-31.0); MEAN CORPUSCULAR HGB CONC 32.8 g/dL (32.0-36.0); MEAN CORPUSCULAR VOLUME 88.7 fL (80.0-94.0); MONOCYTES # (AUTO) 0.6 10^3/uL (0.0-1.0); MONOCYTES % (AUTO) 5.8 %; NEUTROPHILS # (AUTO) 6.4 10^3/uL (1.5-6.6); NEUTROPHILS % (AUTO) 67.6 %; PLT - PLATELET COUNT 266 10^3/uL (130-450); RED BLOOD COUNT 4.21 10^6/uL (4.70-6.10); RED CELL DISTRIBUTION WIDTH 13.2 % (12.0-15.0); WHITE BLOOD COUNT 9.5 x10^3/uL (4.8-10.8)
[2017-12-27 19:38] LABS: HB2 TOTAL 13.3 g/dL; HEMOGLOBIN A1C 0.72 g/dL; HEMOGLOBIN A1C % 7.1 % (4.6-6.2)
== END 2017-12-27 09:59 | disposition home or self-care (01) ==
LOC: LAB.F 09:58
PROVIDERS: ATTEND Internal Medicine
DX: I50.9 Heart failure, unspecified (principal); E11.22 Type 2 diabetes mellitus with diabetic chronic kidney disease; N18.3 Chronic kidney disease, stage 3 (moderate)
CPT/HCPCS: 36415; 80048; 83036; 85025

== ENCOUNTER 2018-01-21 13:28 | Outpatient (CLI) | payer MEDICARE, OTHER ==
[2018-01-21 18:03] LABS: CALCIUM 8.8 mg/dL (8.5-10.3); CREATININE 2.6 mg/dL (0.6-1.2)
[2018-01-21 19:39] LABS: HB2 TOTAL 13.3 g/dL; HEMOGLOBIN A1C 0.62 g/dL; HEMOGLOBIN A1C % 6.4 % (4.6-6.2)
== END 2018-01-21 13:29 | disposition home or self-care (01) ==
LOC: LAB.F 13:28
PROVIDERS: ATTEND Internal Medicine
DX: N18.3 Chronic kidney disease, stage 3 (moderate) (principal)
CPT/HCPCS: 36415; 80048; 83036

== ENCOUNTER 2018-03-19 02:31 | Outpatient (CLI) | payer MEDICARE, OTHER | END 2018-03-19 02:32 | disposition critical access hospital (66) | LOC: EMS 02:31 | PROVIDERS: ATTEND Surgery | DX: R40.20 Unspecified coma (principal); R61 Generalized hyperhidrosis; R73.09 Other abnormal glucose | CPT/HCPCS: A0425; A0427 ==

== ENCOUNTER 2018-03-19 02:53 | Emergency (ER) | payer MEDICARE, OTHER ==
[2018-03-19] MEDS ORDERED: SODIUM CHLORIDE 0.9% 1,000 ML IV ONE ×3 (03:16→07:13)
--- NOTE | 2018-03-19 03:19 | ED Physician Documentation ---
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 He does appear pale and did not recover entirely. He is brought here for evaluation. He reports a decreased appetite and poor hydration. Review of Systems Constitutional: reports: Sweats. denies: Fever, Chills Eyes: denies: Decreased vision Ears: denies: Ear pain Nose: denies: Congestion Throat: denies: Sore throat Cardiac: denies: Chest pain / pressure, Palpitations Respiratory: denies: Dyspnea, Cough GI: denies: Abdominal Pain, Nausea, Vomiting : denies: Dysuria, Frequency Skin: denies: Rash PD PAST MEDICAL HISTORY - Past Medical History Past Medical History: Yes Cardiovascular: Hypertension, High cholesterol Respiratory: Shortness of breath Neuro: None Endocrine/Autoimmune: Type 2 diabetes : Benign prostate hypertrophy, Incontinence, Renal insuffiency, Frequency HEENT: Chronic vision loss, Other Psych: Depression, Anxiety Musculoskeletal: Osteoarthritis, Fatigue, Chronic back pain, Other Derm: Other - Past Surgical History Past Surgical History: Yes Ortho: Spine surgery Derm: Skin cancer surgery - Present Medications Home Medications: Ambulatory Orders Medication Instructions Recorded Confirmed Lisinopril 40 mg PO DAILY 06/07/14 11/15/17 Carvedilol 12.5 mg PO BID 05/27/17 11/15/17 Acetaminophen [Tylenol Extra 500 mg PO Q4HR PRN 11/15/17 11/15/17 Strength] Amlodipine Besylate 10 mg PO DAILY 11/15/17 11/15/17 Aspirin 81 mg PO DAILY 11/15/17 11/15/17 Atorvastatin Calcium 40 mg PO QPM 11/15/17 11/15/17 Hydralazine HCl 25 mg PO BID 11/15/17 11/15/17 Insulin Aspart [NovoLOG] 18 units SUBQ DAILY PM 11/15/17 11/15/17 Insulin Regular Human [NovoLIN R] 5 units SUBQ DAILY PM 11/15/17 11/15/17 Insulin Regular Human [NovoLIN R] 17 unit SUBQ QDBREAKFAST 11/15/17 11/15/17 Levothyroxine [Synthroid] 25 mg PO DAILY 11/15/17 11/15/17 Nortriptyline [Pamelor] 25 mg PO QPM 11/15/17 11/15/17 Nystatin 1 applic TOP BID 11/15/17 11/15/17 Polyethylene Glycol 3350 [Miralax] 17 gm PO DAILY 11/15/17 11/15/17 Terazosin [Hytrin] 5 mg PO QPM 11/15/17 11/15/17 Torsemide 40 mg PO QDBREAKFAST 11/15/17 11/15/17 Levofloxacin [Levaquin] 500 mg PO DAILY #7 tablet 03/19/18 - Allergies Allergies/Adverse Reactions: Allergies Allergy/AdvReac Type Severity Reaction Status Date / Time No Known Drug Allergies Allergy Verified 03/19/18 03:10 - Social History Does the pt smoke?: No Smoking Status: Never smoker Does the pt drink ETOH?: No Does the pt have substance abuse?: No - Immunizations Immunizations are current?: Yes - POLST Patient has POLST: Yes PD ED PE NORMAL - Vitals Vital signs reviewed: Yes (hypertensive) - General General: Alert and oriented X 3, No acute distress, Well developed/nourished, Other (pale appearing ) - HEENT HEENT: Atraumatic, PERRL, EOMI, Other (dry mucous membranes) - Neck Neck: Supple, no meningeal sign - Cardiac Cardiac: RRR, No murmur - Respiratory Respiratory: No respiratory distress, Other (diminished breath sounds bilaterally ) - Abdomen Abdomen: Soft, Non tender - Back Back: No CVA TTP, No spinal TTP - Derm Derm: Other (pale diaphoretic skin ) - Extremities Extremities: No deformity, No edema - Neuro Neuro: Alert and oriented X 3, 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 2-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, No motor deficit, No sensory deficit, Normal speech Eye Opening: Spontaneous Motor: Obeys Commands Verbal: Oriented GCS Score: 15 - Psych Psych: Normal mood, Normal affect Results - Vitals Vitals: Vital Signs - 24 hr 03/19/18 03/19/18 03/19/18 03:06 03:37 04:30 Temperature 35.3 C L Heart Rate 65 64 Respiratory 16 16 16 Rate Blood Pressure 147/67 H 131/66 H O2 Saturation 98 96 03/19/18 03/19/18 03/19/18 05:05 05:35 05:59 Temperature 35.9 C L Heart Rate 75 Respiratory 16 16 16 Rate Blood Pressure O2 Saturation 100 03/19/18 06:15 Temperature Heart Rate 80 Respiratory 16 Rate Blood Pressure 134/82 H O2 Saturation 99 Oxygen O2 Source Room air - Labs Labs: Laboratory Tests 03/19/18 03/19/18 03/19/18 03:54 03:54 03:54 WBC 9.1 RBC 4.03 L Hgb 12.1 L Hct 36.7 L MCV 91.1 MCH 29.9 MCHC 32.9 RDW 12.7 Plt Count 214 MPV 8.1 Neut # (Auto) 7.2 H Lymph # (Auto) 1.5 Menard # (Auto) 0.3 Eos # (Auto) 0.0 Baso # (Auto) 0.0 Absolute Nucleated RBC 0.00 Nucleated RBC % 0.0 Sodium 138 Potassium 3.7 Chloride 105 Carbon Dioxide 23 Anion Gap 10.0 BUN 61 H Creatinine 3.1 H Estimated GFR (MDRD) 20 L Glucose 109 H Calcium 8.4 L Total Bilirubin 0.5 AST 19 ALT 14 Alkaline Phosphatase 75 Troponin I < 0.04 Total Protein 7.1 Albumin 3.3 Globulin 3.8 Albumin/Globulin Ratio 0.9 L Lipase 31 Urine Color Urine Clarity Urine pH Ur Specific [place] Urine Protein Urine Glucose (UA) Urine Ketones Urine Occult Blood Urine Nitrite Urine Bilirubin Urine Urobilinogen Ur Leukocyte Esterase Urine RBC Urine WBC Ur Squamous Epith Cells Urine Bacteria Urine Casts Ur Microscopic Review Urine Culture Comments 03/19/18 06:50 WBC RBC Hgb Hct MCV MCH MCHC RDW Plt Count MPV Neut # (Auto) Lymph # (Auto) Menard # (Auto) Eos # (Auto) Baso # (Auto) Absolute Nucleated RBC Nucleated RBC % Sodium Potassium Chloride Carbon Dioxide Anion Gap BUN Creatinine Estimated GFR (MDRD) Glucose Calcium Total Bilirubin AST ALT Alkaline Phosphatase Troponin I Total Protein Albumin Globulin Albumin/Globulin Ratio Lipase Urine Color YELLOW Urine Clarity HAZY Urine pH 5.0 Ur Specific [place] 1.020 Urine Protein 100 H Urine Glucose (UA) NEGATIVE Urine Ketones NEGATIVE Urine Occult Blood NEGATIVE Urine Nitrite NEGATIVE Urine Bilirubin NEGATIVE Urine Urobilinogen 0.2 (NORMAL) Ur Leukocyte Esterase NEGATIVE Urine RBC 0-5 Urine WBC 0-3 Ur Squamous Epith Cells RARE Squamous Urine Bacteria Moderate H Urine Casts 0-2 Hyaline Casts Ur Microscopic Review INDICATED Urine Culture Comments INDICATED Procedures - IVC sono (time) 0320 Bedside IVC sono: IVC measures (cm) (0.82), IVC collapsed c insp (cm) (complete) , Dehydration (est 2 liters deficit) PD MEDICAL DECISION MAKING - ED course Complexity details: reviewed results, re-evaluated patient, considered differential, d/w patient, d/w family ED course: 77-year-old diabetic male with a hypoglycemic reaction this morning comes to the emergency department appears pale and diaphoretic and he is mentating appropriately. He is found to be significantly dehydrated and requires 2 and half liters of saline before he is able to produce a urine specimen. He is not actually able to produce a specimen and requires catheterization. This drains approximately 450 mL's of urine that does not appear infected. - Sepsis Event Vital Signs: Vital Signs - 24 hr 03/19/18 03/19/18 03/19/18 03:06 03:37 04:30 Temperature 35.3 C L Heart Rate 65 64 Respiratory 16 16 16 Rate Blood Pressure 147/67 H 131/66 H O2 Saturation 98 96 03/19/18 03/19/18 03/19/18 05:05 05:35 05:59 Temperature 35.9 C L Heart Rate 75 Respiratory 16 16 16 Rate Blood Pressure O2 Saturation 100 03/19/18 06:15 Temperature Heart Rate 80 Respiratory 16 Rate Blood Pressure 134/82 H O2 Saturation 99 Oxygen O2 Source Room air Departure - Departure Disposition: 01 Home, Self Care Clinical Impression: Dehydration, Hypoglycemic reaction to insulin Urinary tract infection Qualifiers: Urinary tract infection type: acute cystitis Hematuria presence: without hematuria Qualified Code(s): N30.00 - Acute cystitis without hematuria Condition: Stable Instructions: ED Dehydration, ED Diabetes Hypoglycemia Insulin React, ED UTI Cystitis Male Follow-Up: Ramone Garcia PA-C [Primary Care Provider] - Prescriptions: Levofloxacin [Levaquin] 500 mg PO DAILY #7 tablet
[2018-03-19 03:59] LABS: BASOPHILS % (AUTO) 0.5 %; EOSINOPHILS % (AUTO) 0.5 %; HGB - HEMOGLOBIN 12.1 g/dL (14.0-18.0); LYMPHOCYTES # (AUTO) 1.5 10^3/uL (1.5-3.5); LYMPHOCYTES % (AUTO) 16.2 %; MEAN CORPUSCULAR HEMOGLOBIN 29.9 pg (27.0-31.0); MEAN CORPUSCULAR HGB CONC 32.9 g/dL (32.0-36.0); MEAN CORPUSCULAR VOLUME 91.1 fL (80.0-94.0); MEAN PLATELET VOLUME 8.1 fL (7.4-11.4); MONOCYTES # (AUTO) 0.3 10^3/uL (0.0-1.0); MONOCYTES % (AUTO) 3.6 %; NEUTROPHILS # (AUTO) 7.2 10^3/uL (1.5-6.6); NEUTROPHILS % (AUTO) 79.2 %; PLT - PLATELET COUNT 214 10^3/uL (130-450); RED BLOOD COUNT 4.03 10^6/uL (4.70-6.10); RED CELL DISTRIBUTION WIDTH 12.7 % (12.0-15.0); WHITE BLOOD COUNT 9.1 x10^3/uL (4.8-10.8)
[2018-03-19 04:13] LABS: ALBUMIN 3.3 g/dL (3.2-5.5); ALBUMIN/GLOBULIN RATIO 0.9 (1.0-2.2); BILIRUBIN,TOTAL 0.5 mg/dL (0.2-1.0); CALCIUM 8.4 mg/dL (8.5-10.3); CREATININE 3.1 mg/dL (0.6-1.2); TOTAL PROTEIN 7.1 g/dL (6.7-8.2)
[2018-03-19 07:16] LABS: BILIRUBIN,URINE NEGATIVE (NEGATIVE); GLUCOSE, URINE (UA) NEGATIVE (NEGATIVE); KETONES,URINE (UA) NEGATIVE (NEGATIVE); LEUKOCYTE ESTERASE, URINE NEGATIVE (NEGATIVE); NITRITE,URINE NEGATIVE (NEGATIVE); OCCULT BLOOD,URINE NEGATIVE (NEGATIVE); PROTEIN,URINE 100 mg/dL (NEGATIVE); UROBILINOGEN,URINE 0.2 (NORMAL) E.U./dL (NORMAL)
[2018-03-19 07:18] LABS: CLARITY,URINE HAZY (CLEAR)
[2018-03-19 07:31] LABS: BACTERIA,URINE Moderate /HPF (None Seen); CASTS, URINE 0-2 Hyaline Casts /LPF; RBC,URINE 0-5 /HPF (0-5); SQUAMOUS EPITHELIAL CELL,UR RARE Squamous (<= Few)
[2018-03-19] MEDS ORDERED: levoFLOXacin 250 MG TABLET PO STA (07:42)
[2018-03-19 08:11] VITALS: BP 127/76
== END 2018-03-19 08:25 | disposition home or self-care (01) ==
LOC: EDUNIT# → ED 02:53 → SUPCPDRO 02:53 → ED 08:25
DX: E86.0 Dehydration (principal); T38.3X1A Poisoning by insulin and oral hypoglycemic [antidiabetic] drugs, accidental (unintentional), initial encounter; E09.649 Drug or chemical induced diabetes mellitus with hypoglycemia without coma; I10 Essential (primary) hypertension; E78.00 Pure hypercholesterolemia, unspecified; N30.00 Acute cystitis without hematuria; Z79.82 Long term (current) use of aspirin
CPT/HCPCS: 36415; 51702; 80053; 81001; 83690; 84484; 85025; 87086; 96360; 96361; 99283; 99284; A9270; 81003

== ENCOUNTER 2018-06-13 10:03 | Outpatient (CLI) | payer MEDICARE, OTHER ==
[2018-06-13 18:07] LABS: CALCIUM 8.7 mg/dL (8.5-10.3); CREATININE 2.5 mg/dL (0.6-1.2)
[2018-06-13 18:09] LABS: HB2 TOTAL 12.7 g/dL; HEMOGLOBIN A1C 0.54 g/dL
== END 2018-06-13 10:04 | disposition home or self-care (01) ==
LOC: LAB.F 10:03
PROVIDERS: ATTEND Internal Medicine
DX: E11.22 Type 2 diabetes mellitus with diabetic chronic kidney disease (principal); E03.9 Hypothyroidism, unspecified
CPT/HCPCS: 36415; 80048; 82043; 83036; 84443

== ENCOUNTER 2018-08-18 13:43 | Outpatient (CLI) | payer MEDICARE, OTHER ==
[2018-08-18 17:33] LABS: CALCIUM 9.1 mg/dL (8.5-10.3); CREATININE 2.5 mg/dL (0.6-1.2)
[2018-08-18 18:49] LABS: HB2 TOTAL 13.8 g/dL; HEMOGLOBIN A1C 0.62 g/dL; HEMOGLOBIN A1C % 6.3 % (4.6-6.2)
== END 2018-08-18 13:44 | disposition home or self-care (01) ==
LOC: LAB.F 13:43
PROVIDERS: ATTEND Internal Medicine
DX: E11.22 Type 2 diabetes mellitus with diabetic chronic kidney disease (principal)
CPT/HCPCS: 36415; 80048; 83036; 84443

== ENCOUNTER 2018-12-08 09:49 | Outpatient (CLI) | payer MEDICARE, OTHER ==
[2018-12-08 16:54] LABS: BASOPHILS # (AUTO) 0.1 10^3/uL (0.0-0.1); BASOPHILS % (AUTO) 0.8 %; EOSINOPHILS # (AUTO) 0.3 10^3/uL (0.0-0.7); EOSINOPHILS % (AUTO) 4.3 %; HGB - HEMOGLOBIN 12.5 g/dL (14.0-18.0); LYMPHOCYTES # (AUTO) 2.4 10^3/uL (1.5-3.5); LYMPHOCYTES % (AUTO) 34.9 %; MEAN CORPUSCULAR HEMOGLOBIN 29.1 pg (27.0-31.0); MEAN CORPUSCULAR HGB CONC 32.2 g/dL (32.0-36.0); MEAN CORPUSCULAR VOLUME 90.4 fL (80.0-94.0); MEAN PLATELET VOLUME 8.1 fL (7.4-11.4); MONOCYTES # (AUTO) 0.4 10^3/uL (0.0-1.0); MONOCYTES % (AUTO) 5.7 %; NEUTROPHILS # (AUTO) 3.7 10^3/uL (1.5-6.6); NEUTROPHILS % (AUTO) 54.3 %; PLT - PLATELET COUNT 247 10^3/uL (130-450); RED BLOOD COUNT 4.28 10^6/uL (4.70-6.10); RED CELL DISTRIBUTION WIDTH 12.7 % (12.0-15.0); WHITE BLOOD COUNT 6.8 x10^3/uL (4.8-10.8)
[2018-12-08 17:10] LABS: ALBUMIN 3.9 g/dL (3.2-5.5); ALBUMIN/GLOBULIN RATIO 1.1 (1.0-2.2); ALKALINE PHOSPHATASE 78 IU/L (42-121); ALT ALANINE AMINOTRANSFERASE 13 IU/L (10-60); AST ASPARTATE AMINOTRANSFERASE 22 IU/L (10-42); BILIRUBIN,TOTAL 0.5 mg/dL (0.2-1.0); BUN - BLOOD UREA NITROGEN 51 mg/dL (6-20); CALCIUM 9.4 mg/dL (8.5-10.3); CARBON DIOXIDE - CO2 26 mmol/L (21-32); CHLORIDE 109 mmol/L (101-111); CHOL/HDL RATIO 2.9 (<5.0); CHOLESTEROL 129 mg/dL; CREATININE 2.3 mg/dL (0.6-1.2); GFR - MDRD 28 (>89); GLUCOSE 133 mg/dL (70-100); HDL CHOLESTEROL 45 mg/dL; LDL CHOLESTEROL,CALCULATED 44 mg/dL; SODIUM 146 mmol/L (135-145); TOTAL PROTEIN 7.3 g/dL (6.7-8.2); VLDL CHOLESTEROL 40 mg/dL
[2018-12-08 17:33] LABS: HB2 TOTAL 13.7 g/dL; HEMOGLOBIN A1C 0.63 g/dL; HEMOGLOBIN A1C % 6.4 % (4.6-6.2)
== END 2018-12-08 09:50 | disposition home or self-care (01) ==
LOC: LAB.F 09:49
PROVIDERS: ATTEND Internal Medicine
DX: I50.9 Heart failure, unspecified (principal); E78.00 Pure hypercholesterolemia, unspecified; E11.22 Type 2 diabetes mellitus with diabetic chronic kidney disease; E03.9 Hypothyroidism, unspecified
CPT/HCPCS: 36415; 80053; 80061; 83036; 83721; 84443; 85025

== ENCOUNTER 2019-03-10 09:51 | Outpatient (CLI) | payer MEDICARE, OTHER ==
[2019-03-10 17:30] LABS: ALBUMIN 3.8 g/dL (3.2-5.5); ALBUMIN/GLOBULIN RATIO 1.2 (1.0-2.2); BILIRUBIN,TOTAL 0.5 mg/dL (0.2-1.0); CALCIUM 9.3 mg/dL (8.5-10.3); CREATININE 2.5 mg/dL (0.6-1.2); TOTAL PROTEIN 7.1 g/dL (6.7-8.2)
[2019-03-10 18:05] LABS: HB2 TOTAL 13.2 g/dL; HEMOGLOBIN A1C 0.57 g/dL; HEMOGLOBIN A1C % 6.1 % (4.6-6.2)
== END 2019-03-10 09:52 | disposition home or self-care (01) ==
LOC: LAB.F 09:51
PROVIDERS: ATTEND Internal Medicine
DX: E11.22 Type 2 diabetes mellitus with diabetic chronic kidney disease (principal); I50.9 Heart failure, unspecified; E03.9 Hypothyroidism, unspecified
CPT/HCPCS: 36415; 80053; 83036; 84443

== ENCOUNTER 2019-06-09 09:13 | Outpatient (CLI) | payer MEDICARE, OTHER ==
[2019-06-09 18:02] LABS: ALBUMIN 3.7 g/dL (3.2-5.5); ALBUMIN/GLOBULIN RATIO 1.2 (1.0-2.2); BILIRUBIN,TOTAL 0.3 mg/dL (0.2-1.0); CALCIUM 8.9 mg/dL (8.5-10.3); CREATININE 2.8 mg/dL (0.6-1.2); TOTAL PROTEIN 6.9 g/dL (6.7-8.2)
[2019-06-09 18:29] LABS: HB2 TOTAL 12.2 g/dL; HEMOGLOBIN A1C 0.54 g/dL; HEMOGLOBIN A1C % 6.2 % (4.6-6.2)
== END 2019-06-09 09:14 | disposition home or self-care (01) ==
LOC: LAB.S 09:13
PROVIDERS: ATTEND Internal Medicine
DX: E11.22 Type 2 diabetes mellitus with diabetic chronic kidney disease (principal)
CPT/HCPCS: 36415; 80053; 83036

== ENCOUNTER 2019-10-05 14:40 | Outpatient (CLI) | payer MEDICARE, OTHER ==
[2019-10-05 18:38] LABS: HB2 TOTAL 11.6 g/dL; HEMOGLOBIN A1C 0.73 g/dL; HEMOGLOBIN A1C % 7.9 % (4.6-6.2)
[2019-10-05 18:39] LABS: ALBUMIN 3.9 g/dL (3.2-5.5); ALBUMIN/GLOBULIN RATIO 1.2 (1.0-2.2); BILIRUBIN,TOTAL 0.2 mg/dL (0.2-1.0); CALCIUM 9.2 mg/dL (8.5-10.3); TOTAL PROTEIN 7.2 g/dL (6.7-8.2)
[2019-10-05 18:49] LABS: BASOPHILS % (AUTO) 0.4 %; EOSINOPHILS # (AUTO) 0.2 10^3/uL (0.0-0.7); HGB - HEMOGLOBIN 11.5 g/dL (14.0-18.0); LYMPHOCYTES # (AUTO) 2.6 10^3/uL (1.5-3.5); LYMPHOCYTES % (AUTO) 36.4 %; MEAN CORPUSCULAR HGB CONC 31.9 g/dL (32.0-36.0); MEAN CORPUSCULAR VOLUME 91.2 fL (80.0-94.0); MEAN PLATELET VOLUME 10.2 fL (7.4-11.4); MONOCYTES # (AUTO) 0.7 10^3/uL (0.0-1.0); MONOCYTES % (AUTO) 9.2 %; NEUTROPHILS # (AUTO) 3.6 10^3/uL (1.5-6.6); NEUTROPHILS % (AUTO) 50.7 %; PLT - PLATELET COUNT 253 10^3/uL (130-450); RED BLOOD COUNT 3.96 10^6/uL (4.70-6.10); RED CELL DISTRIBUTION WIDTH 12.3 % (12.0-15.0)
== END 2019-10-05 14:41 | disposition home or self-care (01) ==
LOC: LAB.S 14:40
PROVIDERS: ATTEND Internal Medicine
DX: E11.22 Type 2 diabetes mellitus with diabetic chronic kidney disease (principal); N18.3 Chronic kidney disease, stage 3 (moderate); E03.9 Hypothyroidism, unspecified
CPT/HCPCS: 36415; 80053; 83036; 84443; 85025

== ENCOUNTER 2019-10-18 13:00 | Outpatient (CLI) | payer MEDICARE, OTHER ==
--- NOTE | 2019-10-18 17:37 | CONSULTATION NOTE ---
Palliative Care Follow Up - Referral Referring Provider: Dr. Marcin Rueda Time of Visit: [id number] Referral setting: Home Referral Reason: Generalized Weakness/Diff. walking/CKD IV/DM2/ Incontinence - Information Sources Records reviewed: Previous records reviewed History/Review of Systems obtained from: Patient, Family ( Tamela) Exam limitations: Clinical condition (patient with STM issues; with high anxiety & caregiver burnout) - History of Present Illness Update Brief HPI Update: This is a 79-year-old gentleman who has long-term health problems, multiple comorbidities his most problematic and life-threatening is his CKD stage IV, with a GFR of 20. He continues to have functional and cognitive decline, with significant caregiving needs related to his incontinence, ongoing management of his candidiasis related to this, he is quite sedentary and his caregiver presents with severe caregiver fatigue. His meds have remained quite stable since the last time I saw him in November 2017, he had improved actually fairly significantly with assistance and support of home health care and sustained this for an extended period of time. His deterioration over the last few weeks as his reports with his increased weakness, and difficulty with ADLs, is of concern for him to be able to manage in the home setting. It is too much of a taxing in considerable effort for the patient leave home, for further physical therapy, and is requesting home therapy. Patient actually is quite willing to engage, would like to get stronger, both would like to see an improvement in his bed mobility, ambulation, as well as his ability to get from sitting to standing. Patient has not had any acute falls, though remains at high risk. He has had weight loss, more trouble tracking, his biggest concern actually is for his . Patient's underlying past medical history includes hypertension hypercholesterol emia, short-term memory deficits, type 2 diabetes insulin-dependent, BPH with severe incontinence, depression, anxiety, osteoarthritis, chronic back pain and chronic left ankle pain. 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 Patient does have a past history of alcoholism, is currently not drinking. Social History - Living Situation Living arrangement: At home Living Situation: With spouse/s.o. Support System: Patient and spouse have been together for 30 years, they have been for 20. He does have a daughter from which he is estranged, but is in touch with his son-in-law. He does have grandchildren which he enjoys, though does not see on a regular basis. His spouse is quite frail, has multiple medical problems of her own, and is easily overwhelmed. His biggest concern actually is for his spouse and being a burden. Medications/Allergies - Medications Home Medications: Ambulatory Orders Medication Instructions Recorded Confirmed lisinopriL [Lisinopril] 40 mg PO DAILY 06/07/14 10/18/19 Carvedilol 12.5 mg PO BID 05/27/17 10/18/19 Acetaminophen [Tylenol Extra 500 mg PO Q4HR PRN 11/15/17 11/15/17 Strength] Amlodipine Besylate 10 mg PO DAILY 11/15/17 10/18/19 Aspirin 81 mg PO DAILY 11/15/17 10/18/19 Atorvastatin Calcium 40 mg PO QPM 11/15/17 10/18/19 Hydralazine HCl 25 mg PO BID 11/15/17 10/18/19 Insulin Regular Human [NovoLIN R] 5 units SUBQ DAILY PM 11/15/17 10/18/19 Insulin Regular Human [NovoLIN R] 12 unit SUBQ QDBREAKFAST 11/15/17 10/18/19 Levothyroxine [Synthroid] 25 mg PO DAILY 11/15/17 10/18/19 Nortriptyline [Pamelor] 25 mg PO QPM 11/15/17 10/18/19 Nystatin 1 applic TOP BID 11/15/17 10/18/19 Terazosin [Hytrin] 5 mg PO QPM 11/15/17 10/18/19 Torsemide 40 mg PO QDBREAKFAST 11/15/17 10/18/19 Docusate Sodium [Dss] 250 mg PO DAILY 10/18/19 10/18/19 Insulin NPH Human [Humulin N] 5 units SUBQ QDDINNER 10/18/19 10/18/19 Insulin NPH Human [Humulin N] 15 units SUBQ QDBREAKFAST 10/18/19 10/18/19 - Allergies Allergies/Adverse Reactions: Allergies Allergy/AdvReac Type Severity Reaction Status Date / Time No Known Drug Allergies Allergy Verified 03/19/18 03:10 Review of Systems - Constitutional Constitutional: reports: Fatigue, Weakness, Poor appetite, Weight loss (192). denies: Fever, Chills - Eyes Eyes: reports: Vision loss - Ears, Nose & Throat Ears, Nose & Throat: reports: Hearing loss, Dentures (dont fit) - Cardiovascular Cardiovascular: reports: Edema (fluctuates), Lightheadedness, Exertional dyspnea, Decr. exercise tolerance. denies: Chest pain - Respiratory Respiratory: reports: SOB with exertion. denies: Cough, SOB at rest - Gastrointestinal Gastrointestinal: reports: Poor appetite, Early satiety. denies: Constipation, Nausea, Reflux/heartburn - Genitourinary Genitourinary: reports: Incontinence - Musculoskeletal Musculoskeletal: reports: Stiffness, Limited range of motion, Muscle weakness - Integumentary Integumentary: reports: Rash (faded in groin/buttock folds; using nystatin regularly) - Neurological Neurological: reports: General weakness, Memory problems, Abnormal gait, Incoordination - Psychiatric Psychiatric: reports: Depression, Anxiety - Endocrine Endocrine: reports: Diabetes type 2 - Hematologic/Lymphatic Hematologic/Lymphatic: reports: Anemia. denies: Recurrent infections - All Other Systems All Other Systems: reports: Reviewed and negative Physical Exam - Vital Signs Temperature: 96.9 C Pulse Rate: 74 Respiratory Rate: 18 O2 Saturation: 97 (ra @ rest) Blood Pressure: 103/60 (sitting/ 135/73 standing) - Physical Exam General Appearance: positive: No acute distress, Alert Eyes Bilateral: positive: Normal inspection ENT: positive: No signs of dehydration, Other (edentulous) Neck: positive: No JVD, Trachea midline Cardiovascular: positive: Regular rate & rhythm Respiratory: positive: No respiratory distress, Breath sounds nml, Diminished in bases. negative: Wheezes, Rales, Rhonchi Abdomen: positive: Non-tender, Soft, Nml bowel sounds Skin: positive: Pallor, Dryness, Rash (faded redened area of going/ thinned pink coccyx but no open areas; feet dry and peeling) Extremities: positive: No pedal edema (reports fluctuates depending on sodium intake) Neurologic/Psychiatric: positive: Oriented x3, Mood/affect nml, Weakness, Flat affect Palliative Care - POLST Patient has POLST: Yes POLST Status: DNR, Selective Treatment (patient reiterates would not go on dialysis) Pain: Pain unchanged, Location (back and ankle pain; intermittent in nature; worse at night) Tiredness/Fatigue: Moderate (4-6) Drowsiness/Sedation: Moderate (4-6) Nausea: None Anorexia: Moderate (4-6), Weight loss (patient was 224 11/2017 and had weight loss at that time; in MD office a couple of weeks ago was 192) Dyspnea: Moderate (4-6) (with activity) Depression: Mild (1-3) Anxiety: Mild (1-3) Feelings of wellbeing/Perceived Quality of Life: Fair, Acceptable, Worsening Sleep: Variable sleep pattern Constipation: No Performance Status: reports decline in functional status, increased difficulty getting from sitting to standing, does ambulate with contact assist to the bathroom. They do have a shower chair set up, she does need to assist him with bathing. He is able to self feed. He is having increased difficulty getting in and out of bed. He is having more memory problems, less insight as far as managing his incontinence, and increased difficulty getting on and off the toilet. - Palliative Care Discussion: Patient continues to remain quite frail, he has had weight loss, decline in cognitive and functional status, he has had no acute infections or exacerbations requiring hospitalization. He has had no significant injury falls. His care needs are increasing, his caregiver and is having your increase in her health problems and is feeling overwhelmed. They have walk through the [employer] application last time with home health, and income was too high. She has not been able to follow through for any other contact with [facility], he may be a candidate for the [facility] program. She has very little support, she has a neighbor who will do occasional driving or help if she is in trouble with him. They have no plan if she is no longer able to care for him or her health declines. They do have Meals on Wheels and significant financial stressors. In discussion regarding patient's ongoing CKD. This could continue at the current level for months to still extended period of years though he has been deteriorating slowly. Patient is quite clear he would not pursue dialysis, but though his presents is a failure to thrive, he does not meet hospice criteria currently. They are interested in improving his functional status as a short- term goal, with a focus on safety. Will initiate home health referral Results - Lab Results Lab results reviewed: Yes Lab and Imaging Results: His H&H are 11.5 and 36.1; sodium 138; potassium 4.2; BUN 72; creatinine 3.0; GFR 20; glucose 189; A1c 7.9 Impression and Recommendations - Palliative Care Impression: This is a 79-year-old gentleman with multiple comorbidities including CHF, diabetes type 2, and most concerning CKD stage IV. He has had functional decline, cognitive decline, and weight loss. His care needs are increasing, his presents with caregiver fatigue. Palliative care to provide support rega rding symptom management and anticipatory guidance. Recommendations/Counseling Done: 1. Weight loss. Patient has had a 15% weight loss since last visit with palliative care, this is multifactorial in origin. Patient's intake is less, has taste changes, early satiety. They do partake in Meals on Wheels, and he does not always like the offerings regarding this. He does drink a lot of Coke 0, and often only eats the desserts. Though his A1c was 7.9. And exploration with the , she is too overwhelmed to do any other modifications regarding his dietary intake. Patient perceives it is a quality of life issue, will continue to monitor. 2. Diabetes type 2. They do follow his blood sugars, his A1c is 7.9 which is an average of 180. does help monitor blood sugars, but does not administer but helps him dial in. Suspect current regimen is adequate, would not be good for patient to have hypoglycemic episodes. Counseling provided regarding need for patient to follow-up with Dr. Payton for nail care. 3. CHF. Patient without any signs of exacerbation of his CHF. reports fluctuating lower extremity edema. None evident on exam today. She is ordering some support hose. Patient does sit with his feet dependent most of the day. 4. CKD 4. Patient is exhibiting symptoms would expect with worsening kidney function, increased fatigue, poor appetite, pruritis, And sleeping more. Patient and not interested in pursuing dialysis if it were to become an option, would concur he would not be a good candidate given his underlying health problems and complex social situation. Patient has not had any acute changes in his labs. 5. Candidiasis. Patient is continuously incontinent, this has made a complex situation for his in his incontinence. She has been fairly diligent about managing his skin, at this point in time his areas are faded red, no moist discrimination or irritation noted. He does have a thin coccyx, but no open a reas. 6. Advanced care planning. Patient continues to decline, is quite frail, though has not had any acute hospitalizations are significant falls. is feeling overwhelmed, with minimal social support and no long-term plan as his care needs increase. 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 [id number]. Will be a considerable taxing effort for the patient leave the home secondary to his functional decline, lower extremity weakness, and poor endurance. Patient would benefit from physical therapy for strengthening program, home safety eval, equipment recommendations. Patient will benefit from occupational therapy for reevaluation of bath set up, possibly raised toilet seat, and management of ADLs. Home health aide for personal care and bathing, as well as skin care. MACHINE SILVER STRIPPER for both short-term and long-term planning regarding caregiver distress, financial stressors, and concern for meeting patient's needs ongoing. Time Spent: 60 minutes with greater than 50% of this done in counseling regarding goals of care, recommendation for home health of [id number], and anticipatory guidance.
== END 2019-10-18 13:01 | disposition home or self-care (01) ==
LOC: PC 13:00
PROVIDERS: ATTEND Nurse Practitioner Adult Health
DX: Z51.5 Encounter for palliative care (principal); R53.1 Weakness; R63.4 Abnormal weight loss; R41.89 Other symptoms and signs involving cognitive functions and awareness; I13.0 Hypertensive heart and chronic kidney disease with heart failure and stage 1 through stage 4 chronic kidney disease, or unspecified chronic kidney disease; E11.22 Type 2 diabetes mellitus with diabetic chronic kidney disease; N18.4 Chronic kidney disease, stage 4 (severe); I50.9 Heart failure, unspecified; R32 Unspecified urinary incontinence; B37.2 Candidiasis of skin and nail; Z79.84 Long term (current) use of oral hypoglycemic drugs; Z79.899 Other long term (current) drug therapy; Z66 Do not resuscitate
CPT/HCPCS: 99350

== ENCOUNTER 2020-04-29 14:15 | Outpatient (CLI) | payer MEDICARE, OTHER ==
--- NOTE | 2020-04-29 18:16 | CONSULTATION NOTE ---
Palliative Care Follow Up - Referral Referring Provider: Dr. Marcin Rueda Time of Visit: [id number] Referral setting: Home Referral Reason: CKD Stage 4/DM/CHF/Candidiasis - Information Sources Records reviewed: Previous records reviewed History/Review of Systems obtained from: Patient, Family ( Evelyn), Friend (Luanne neighbor) Exam limitations: Clinical condition (patient with severe STM issues; quite ill unable to attend much to information; friend Luanne present to help with notes) - History of Present Illness Update Brief HPI Update: This is a 79-year-old gentleman who has long-term health problems, multiple comorbidities, his most problematic and life limiting is his CKD D stage IV, with last known GFR of 20. He continues to have functional and cognitive decline, he has high care needs related to his incontinence, ongoing management of his diabetes, recurrent candidiasis, he is quite sedentary, and patient's caregiver Evelyn, his continues to present with severe caregiver fatigue and worsening health problems of her own including lifting restrictions. Patient's meds have remained quite stable, he has received home health therapies in the past, with improvement of functional status and improved caregiving support. He had them short-term in October, unfortunately he discontinued them because of fears around COVID-19. They are feeling less anxious, and worried about his increasing care needs, and would like to reinstate home health though they do understand this is a temporary fix not a long-term support for his chronic health problems. Patient does feel he is motivated to participate, as 1 of his greatest worries is that increasing stress on his , does recognize he needs to be more stable, decrease his fall risk, and does need most likely ongoing bathing care but would like to trial increasing his independence in the shower. Patient also received a ongoing sensor monitor for diabetic management, is totally overwhelmed with this, and will need much instruction and handholding regarding this Patient's underlying past medical history includes hypertension, hypercholesterolemia, short-term memory deficits, type 2 diabetes insulin- dependent, BPH with severe incontinence, depression, anxiety, osteoarthritis, chronic back pain, and chronic left ankle pain. Patient has a history and past the spine surgery as well as squamous cell carcinomas chest. Patient does have a past history of alcoholism and is currently not drinking. Social History - Living Situation Living arrangement: At home Living Situation: With spouse/s.o. Support System: Patient and have been receiving support from their neighbors, for shopping, errands, and Luanne is here to see if there is any other resources she can help access for them. Patient currently is receiving Meals on Wheels, has looked at [place], does not meet criteria financially. They do have multiple financial stressors. 's health is continued to deteriorate, and now has lifting restrictions. He does have a daughter with whom he is estranged. Medications/Allergies - Medications Home Medications: Ambulatory Orders Medication Instructions Recorded Confirmed lisinopriL [Lisinopril] 40 mg PO DAILY 06/07/14 04/29/20 Carvedilol 12.5 mg PO BID 05/27/17 04/29/20 Acetaminophen [Tylenol Extra 500 mg PO Q4HR PRN 11/15/17 04/29/20 Strength] Amlodipine Besylate 10 mg PO DAILY 11/15/17 04/29/20 Aspirin 81 mg PO DAILY 11/15/17 04/29/20 Atorvastatin Calcium 40 mg PO QPM 11/15/17 04/29/20 Hydralazine HCl 25 mg PO BID 11/15/17 04/29/20 Insulin Regular Human [NovoLIN R] 5 units SUBQ DAILY PM 11/15/17 04/29/20 Insulin Regular Human [NovoLIN R] 12 unit SUBQ QDBREAKFAST 11/15/17 04/29/20 Levothyroxine [Synthroid] 25 mg PO DAILY 11/15/17 04/29/20 Nortriptyline [Pamelor] 25 mg PO QPM 11/15/17 04/29/20 Nystatin 1 applic TOP BID 11/15/17 04/29/20 Terazosin [Hytrin] 5 mg PO QPM 11/15/17 04/29/20 Torsemide 40 mg PO QDBREAKFAST 11/15/17 04/29/20 Docusate Sodium [Dss] 250 mg PO DAILY 10/18/19 04/29/20 Insulin NPH Human [Humulin N] 5 units SUBQ QDDINNER 10/18/19 04/29/20 Insulin NPH Human [Humulin N] 15 units SUBQ QDBREAKFAST 10/18/19 04/29/20 - Allergies Allergies/Adverse Reactions: Allergies Allergy/AdvReac Type Severity Reaction Status Date / Time No Known Drug Allergies Allergy Verified 03/19/18 03:10 Review of Systems - Constitutional Constitutional: reports: Fatigue, Poor appetite ( reports patient will eat breakfast, rarely lunch and hardly ever dinner. She just insulin accordingly. Reports he is continue to lose weight, she thinks his last weight was 185.). denies: Fever, Chills - Eyes Eyes: reports: Vision loss - Ears, Nose & Throat Ears, Nose & Throat: reports: Hearing loss - Cardiovascular Cardiovascular: reports: Edema, Decr. exercise tolerance. denies: Chest pain - Respiratory Respiratory: reports: SOB with exertion. denies: Cough, SOB at rest - Gastrointestinal Gastrointestinal: reports: Constipation (occasional), Poor appetite, Early satiety. denies: Nausea, Reflux/heartburn - Genitourinary Genitourinary: reports: Frequency, Urgency, Incontinence (wears depends) - Musculoskeletal Musculoskeletal: reports: Back pain, Muscle aches, Stiffness, Limited range of motion, Muscle weakness, Joint pain, Assistive devices (has rolling walker) - Integumentary Integumentary: reports: Rash (has not bathed for three weeks; does have odor), Dryness, Nail changes (long and unkempt), Hair changes (grown out; can't get to chávez without shower) - Neurological Neurological: reports: General weakness, Memory problems, Abnormal gait, Other (reports numbness finger/toes decreased fine motor skills) - Psychiatric Psychiatric: reports: Anxiety. denies: Depression - Endocrine Endocrine: reports: Diabetes type 2 ( unable to be more specific other than "high" though titrates insulin cause not eating; will get A1C) - All Other Systems All Other Systems: reports: Other (limited with patient's STM issues) Physical Exam - Vital Signs Temperature: 97.3 C Pulse Rate: 53 Respiratory Rate: 18 O2 Saturation: 95 (ra @ rest) Blood Pressure: 122/64 - Physical Exam General Appearance: positive: Alert, Mild distress Eyes Bilateral: positive: Normal inspection ENT: positive: No signs of dehydration Neck: positive: No JVD, Trachea midline Cardiovascular: positive: Regular rate & rhythm Respiratory: positive: No respiratory distress, Diminished in bases. negative: Wheezes, Rales, Rhonchi Abdomen: positive: Non-tender, Soft, Nml bowel sounds Skin: positive: Rash (moist desquamation in skin folds/ scrotum reddened and sore), Pressure wound (tail bone reddened but no open area; on pressure relief cushion) Extremities: positive: Pedal edema (1+ left greater than right; long toe nails; sits with feet dependent most of day) Neurologic/Psychiatric: positive: Oriented x3, Mood/affect nml, Weakness, Flat a ffect Palliative Care - POLST Patient has POLST: Yes POLST Status: DNR, Selective Treatment Performance Status: Per patient does admit to being quite sedentary. He reports with nice day, he would be interested in walking out on the porch, and being able to walk outside. reports he does need help, mostly walks from recliner into the bedroom/bathroom. He has have falls but maybe once a week, she is unable to help him in the bathroom at this point in time related to her restrictions. They very much want bathing assist, but are where home health would be just temporary. Hoping for OT back, to help with bathing set up, and patient to regain independence. - Palliative Care Discussion: Met with patient, Evelyn, and friend Luanne (not a caregiver). They are quite disappointed there are minimal resources for him to access, as they are doing poorly overall, and do not have family or financial resources to be able to support deteriorating situation. Current goals are at this point to to not current situation, they do feel open to having people back in their home again, patient is feeling optimistic that he will engage in home health support. We did discuss in the context of patient were not to make improvements, are unable to follow through on program, would be short term. They do need a long-term plan, but unfortunately at this point minimal options. Patient does have multiple chronic illnesses, but has been on a slow decline, no acute hospitalizations or infections has had some weight loss, will need to follow-up on labs for further kidney or organ dysfunction/decline. Results - Lab Results Lab and Imaging Results: will order labs with to check current status CMP, CBC, TSH, and AIC Impression and Recommendations - Palliative Care Impression: This is a 79-year-old gentleman with multiple comorbidities including CKD stage IV, diabetes type 2, and CHF. He has had slow functional decline, increasing short-term memory/cognitive issues, with increasing care needs in the setting of complex social situation. Patient did have home health, which dismissed with COVID-19 fears and concerns, feels currently would like to move forward on previous goals of improving function and independence. Palliative care to provide support regarding symptom management and anticipatory guidance. Recommendations/Counseling Done: 1. Diabetes type 2. We will get a new A1c, does help monitor blood sugars. She does adjust accordingly given patient's intake, continues to have poor and fluctuating dietary intake, with ongoing weight decline. She did get a new sensor for his diabetic management, she is quite overwhelmed and thought of learning something new. She cannot read the small writing, will need home health RN to help with coaching and management in this setting of new equipment. 2. CKD stage IV. Patient does have worsening fatigue, poor appetite, and sleeping more. Patient and have not been interested in further exploration of dialysis if became an option. Will have up-to-date labs drawn through home health RN. 3. Candidiasis. Patient is continuously incontinent, he is changing his own depends, unfortunately he is also managing his on nystatin. Patient does have moist desquamation in his groin folds, has not had a shower for 3 weeks. He does have a thinned coccyx, but no open areas. Will reinitiate at home health aide, to improve personal hygiene, and continue to work with patient becoming more independent and managing his own ADLs though this will be challenging given his declining status. 4. CHF. Patient does not present with any signs of exacerbation of his CHF, does have some lower extremity edema. Patient does sit with feet dependent most of the day, because of incontinence has not been using support stockings. 5. Advanced care planning. Patient continues to decline, is quite frail though no acute hospitalizations, infections, or significant falls. remains overwhelmed with minimal social support, but patient does not qualify for any current services, though did encourage 2 relief check with [facility] regarding [facility]. [id number] it is a taxing considerable effort for the patiently the home secondary to his functional decline, lower extremity weakness, and poor en durance. Patient would benefit from nursing for further diabetic instruction and working with can be cheese new equipment, monitoring of rash, and medication compliance. Patient also needs some updated labs. Patient benefit from physical therapy for strengthening program, home safety eval, and further strengthening. Patient would benefit from occupational therapy for reevaluation of bath set up as well as skin care issues. MUSIC HISTORIAN for both short-term and long- term planning regarding caregiver distress, financial stressors and concern for meeting patient's needs ongoing for long-term plan. Time Spent: 60 minutes with greater than 50% of this done in counseling regarding current management, resources, long-term/short-term goals and planning issues, and anticipatory guidance
== END 2020-04-29 14:16 | disposition home or self-care (01) ==
LOC: PC 14:15
PROVIDERS: ATTEND Nurse Practitioner Adult Health
DX: Z51.5 Encounter for palliative care (principal); I13.0 Hypertensive heart and chronic kidney disease with heart failure and stage 1 through stage 4 chronic kidney disease, or unspecified chronic kidney disease; E11.22 Type 2 diabetes mellitus with diabetic chronic kidney disease; N18.4 Chronic kidney disease, stage 4 (severe); I50.9 Heart failure, unspecified; R41.3 Other amnesia; N40.1 Benign prostatic hyperplasia with lower urinary tract symptoms; N39.498 Other specified urinary incontinence; B37.2 Candidiasis of skin and nail; R53.1 Weakness; R63.0 Anorexia; R63.4 Abnormal weight loss; Z79.899 Other long term (current) drug therapy; Z79.82 Long term (current) use of aspirin; Z79.4 Long term (current) use of insulin; Z74.1 Need for assistance with personal care; Z59.9 Problem related to housing and economic circumstances, unspecified; Z66 Do not resuscitate
CPT/HCPCS: 99350

== ENCOUNTER 2020-05-14 11:55 | Outpatient (CLI) | payer MEDICARE, OTHER ==
[2020-05-14 14:40] LABS: BASOPHILS # (AUTO) 0.1 10^3/uL (0.0-0.1); BASOPHILS % (AUTO) 0.7 %; EOSINOPHILS # (AUTO) 0.3 10^3/uL (0.0-0.7); EOSINOPHILS % (AUTO) 3.4 %; HGB - HEMOGLOBIN 11.5 g/dL (14.0-18.0); LYMPHOCYTES # (AUTO) 2.5 10^3/uL (1.5-3.5); LYMPHOCYTES % (AUTO) 32.7 %; MEAN CORPUSCULAR HEMOGLOBIN 30.1 pg (27.0-31.0); MONOCYTES # (AUTO) 0.4 10^3/uL (0.0-1.0); MONOCYTES % (AUTO) 5.3 %; NEUTROPHILS # (AUTO) 4.4 10^3/uL (1.5-6.6); NEUTROPHILS % (AUTO) 57.6 %; PLT - PLATELET COUNT 250 10^3/uL (130-450); RED BLOOD COUNT 3.82 10^6/uL (4.70-6.10); RED CELL DISTRIBUTION WIDTH 12.2 % (12.0-15.0); WHITE BLOOD COUNT 7.6 x10^3/uL (4.8-10.8)
[2020-05-14 14:59] LABS: ALBUMIN 3.6 g/dL (3.2-5.5); ALBUMIN/GLOBULIN RATIO 1.1 (1.0-2.2); BILIRUBIN,TOTAL 0.5 mg/dL (0.2-1.0); CALCIUM 8.8 mg/dL (8.5-10.3); CREATININE 2.9 mg/dL (0.6-1.2); TOTAL PROTEIN 6.9 g/dL (6.7-8.2)
[2020-05-14 22:38] LABS: HEMOGLOBIN A1c% 7.4 % (4.27-6.07)
== END 2020-05-14 23:59 | disposition home or self-care (01) ==
LOC: LAB.R 11:55
PROVIDERS: ATTEND Nurse Practitioner Adult Health
DX: E11.22 Type 2 diabetes mellitus with diabetic chronic kidney disease (principal); E03.9 Hypothyroidism, unspecified
CPT/HCPCS: 80053; 83036; 84443; 85025

== ENCOUNTER 2020-09-13 | Outpatient (CLI) | payer MEDICARE, OTHER | END 2020-09-13 01:11 | disposition critical access hospital (66) | CPT/HCPCS: A0425; A0427 ==

== ENCOUNTER 2020-09-13 01:38 | Emergency (ER) | payer MEDICARE, OTHER ==
--- NOTE | 2020-09-13 01:56 | ED Physician Documentation ---
History of Present Illness - Stated complaint Stated Complaint: SOA - Chief complaint Chief Complaint: General - History obtained from History obtained from: Patient, EMS - History of Present Illness Timing: How many days ago (2-3 (weakness, high blood sugars)), How many hours ago (dyspnea) Pain level max: 0 Pain level now: 0 Improved by: dyspnea resolved en route after duoneb given by medics Associated symptoms: generalized weakness, dyspnea - Additonal information Additional information: BIBA. called 911. 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 denies: Cough, Wheezing GI: reports: Reviewed and negative : denies: Dysuria, Frequency Musculoskeletal: reports: Reviewed and negative Neurologic: reports: Generalized weakness. denies: Focal weakness, Numbness, Headache PD PAST MEDICAL HISTORY - Past Medical History Past Medical History: Yes Cardiovascular: Hypertension, High cholesterol Respiratory: Shortness of breath Neuro: None Endocrine/Autoimmune: Type 2 diabetes GI: None : Benign prostate hypertrophy, Incontinence, Renal insuffiency, Frequency HEENT: Chronic vision loss, Other Psych: Depression, Anxiety Musculoskeletal: Osteoarthritis, Fatigue, Chronic back pain, Other Derm: Other - Past Surgical History Past Surgical History: Yes Ortho: Spine surgery Derm: Skin cancer surgery - Present Medications Home Medications: Ambulatory Orders Medication Instructions Recorded Confirmed lisinopriL [Lisinopril] 40 mg PO DAILY 06/07/14 09/13/20 Acetaminophen [Tylenol Extra 500 mg PO Q4HR PRN 11/15/17 09/13/20 Strength] Amlodipine Besylate 10 mg PO DAILY 11/15/17 09/13/20 Aspirin 81 mg PO DAILY 11/15/17 09/13/20 Atorvastatin Calcium 40 mg PO QPM 11/15/17 09/13/20 Hydralazine HCl 25 mg PO BID 11/15/17 09/13/20 Insulin Regular Human [NovoLIN R] 7 units SUBQ DAILY PM 11/15/17 04/29/20 Levothyroxine [Synthroid] 25 mcg PO DAILY 11/15/17 09/13/20 Nortriptyline [Pamelor] 25 mg PO QPM 11/15/17 09/13/20 Nystatin 1 applic TOP BID 11/15/17 09/13/20 Terazosin [Hytrin] 5 mg PO QPM 11/15/17 09/13/20 Docusate Sodium [Dss] 250 mg PO TID 10/18/19 09/13/20 Torsemide 20 mg PO DAILY 09/13/20 09/13/20 carvediloL [Coreg] 12.5 mg PO BID 09/13/20 09/13/20 - Allergies Allergies/Adverse Reactions: Allergies Allergy/AdvReac Type Severity Reaction Status Date / Time No Known Drug Allergies Allergy Verified 09/13/20 01:54 - Social History Does the pt smoke?: No Smoking Status: Never smoker Does the pt drink ETOH?: No Does the pt have substance abuse?: No - Immunizations Immunizations are current?: Yes - POLST Patient has POLST: Yes PD ED PE NORMAL - Vitals Vital signs reviewed: Yes - General General: Alert and oriented X 3, No acute distress, Well developed/nourished - HEENT HEENT: Other (tacky/pasty mucous membranes) - Neck Neck: Supple, no meningeal sign - Cardiac Cardiac: RRR, No murmur - Respiratory Respiratory: No respiratory distress, Clear bilaterally - Abdomen Abdomen: Soft, Non tender - Derm Derm: Normal color, Warm and dry - Extremities Extremities: No edema - Neuro Neuro: Alert and oriented X 3, broadband engineer 2-12 intact, No motor deficit, No sensory deficit, Normal speech Eye Opening: Spontaneous Motor: Obeys Commands Verbal: Oriented GCS Score: 15 Results - Vitals Vitals: Vital Signs - 24 hr 09/13/20 09/13/20 09/13/20 01:46 02:07 02:45 Temperature 36.1 C L Heart Rate 86 82 Respiratory 18 16 16 Rate Blood Pressure 130/72 O2 Saturation 100 98 09/13/20 09/13/20 09/13/20 02:50 04:02 04:30 Temperature Heart Rate 80 85 Respiratory 14 17 Rate Blood Pressure 117/58 L 122/60 123/70 O2 Saturation 100 98 09/13/20 09/13/20 09/13/20 05:49 06:53 07:30 Temperature Heart Rate 87 82 Respiratory 14 15 18 Rate Blood Pressure 122/67 129/72 O2 Saturation 98 99 Oxygen O2 Source Room air - Labs Labs: Laboratory Tests 09/13/20 09/13/20 09/13/20 02:11 02:11 02:11 WBC 9.1 RBC 3.77 L Hgb 11.4 L Hct 34.8 L MCV 92.3 MCH 30.2 MCHC 32.8 RDW 11.9 L Plt Count 224 MPV 10.0 Neut # (Auto) 6.4 Lymph # (Auto) 1.8 Gordon # (Auto) 0.5 Eos # (Auto) 0.2 Baso # (Auto) 0.0 Absolute Nucleated RBC 0.00 Nucleated RBC % 0.0 PT 12.1 INR 1.1 APTT 25.5 VBG pH VBG pCO2 VBG pO2 VBG HCO3 VBG Total CO2 VBG O2 Saturation VBG Base Excess Sodium 138 Potassium 5.4 H Chloride 102 Carbon Dioxide 22 Anion Gap 14.0 H BUN 56 H Creatinine 2.8 H Estimated GFR (MDRD) 22 L Glucose 517 H* Calcium 9.2 Total Bilirubin 0.6 AST 18 ALT 20 Alkaline Phosphatase 106 B-Natriuretic Peptide Total Protein 7.2 Albumin 3.8 Globulin 3.4 Albumin/Globulin Ratio 1.1 Lipase 32 Urine Color Urine Clarity Urine pH Ur Specific [place] Urine Protein Urine Glucose (UA) Urine Ketones Urine Occult Blood Urine Nitrite Urine Bilirubin Urine Urobilinogen Ur Leukocyte Esterase Ur Microscopic Review Urine Culture Comments Nasal Adenovirus (PCR) Nasal B. parapertussis DNA (PCR) Nasal Coronavir 229E PCR Nasal Coronavir HKU1 PCR Nasal Coronavir NL63 PCR Nasal Coronavir OC43 PCR Nasal Enterovir/Rhinovir PCR Nasal Influenza B PCR Nasal Influenza A PCR Nasal Parainfluen 1 PCR Nasal Parainfluen 2 PCR Nasal Parainfluen 3 PCR Nasal Parainfluen 4 PCR Nasal RSV (PCR) Nasal B.pertussis DNA PCR Nasal C.pneumoniae (PCR) Jesus Human Metapneumo PCR Nasal M.pneumoniae (PCR) Nasal SARS-CoV-2 (PCR) Serum Ketones NEGATIVE 09/13/20 09/13/20 09/13/20 02:11 02:11 02:32 WBC RBC Hgb Hct MCV MCH MCHC RDW Plt Count MPV Neut # (Auto) Lymph # (Auto) Gordon # (Auto) Eos # (Auto) Baso # (Auto) Absolute Nucleated RBC Nucleated RBC % PT INR APTT VBG pH 7.301 L VBG pCO2 42.6 VBG pO2 25.7 VBG HCO3 20.5 L VBG Total CO2 21.8 L VBG O2 Saturation 50.6 L VBG Base Excess -5.6 L Sodium Potassium Chloride Carbon Dioxide Anion Gap BUN Creatinine Estimated GFR (MDRD) Glucose Calcium Total Bilirubin AST ALT Alkaline Phosphatase B-Natriuretic Peptide 28 Total Protein Albumin Globulin Albumin/Globulin Ratio Lipase Urine Color Urine Clarity Urine pH Ur Specific [place] Urine Protein Urine Glucose (UA) Urine Ketones Urine Occult Blood Urine Nitrite Urine Bilirubin Urine Urobilinogen Ur Leukocyte Esterase Ur Microscopic Review Urine Culture Comments Nasal Adenovirus (PCR) NOT DETECTED Nasal B. parapertussis DNA (PCR) NOT DETECTED Nasal Coronavir 229E PCR NOT DETECTED Nasal Coronavir HKU1 PCR NOT DETECTED Nasal Coronavir NL63 PCR NOT DETECTED Nasal Coronavir OC43 PCR NOT DETECTED Nasal Enterovir/Rhinovir PCR NOT DETECTED Nasal Influenza B PCR NOT DETECTED Nasal Influenza A PCR NOT DETECTED Nasal Parainfluen 1 PCR NOT DETECTED Nasal Parainfluen 2 PCR NOT DETECTED Nasal Parainfluen 3 PCR NOT DETECTED Nasal Parainfluen 4 PCR NOT DETECTED Nasal RSV (PCR) NOT DETECTED Nasal B.pertussis DNA PCR NOT DETECTED Nasal C.pneumoniae (PCR) NOT DETECTED Jesus Human Metapneumo PCR NOT DETECTED Nasal M.pneumoniae (PCR) NOT DETECTED Nasal SARS-CoV-2 (PCR) NOT DETECTED Serum Ketones 09/13/20 04:25 WBC RBC Hgb Hct MCV MCH MCHC RDW Plt Count MPV Neut # (Auto) Lymph # (Auto) Gordon # (Auto) Eos # (Auto) Baso # (Auto) Absolute Nucleated RBC Nucleated RBC % PT INR APTT VBG pH VBG pCO2 VBG pO2 VBG HCO3 VBG Total CO2 VBG O2 Saturation VBG Base Excess Sodium Potassium Chloride Carbon Dioxide Anion Gap BUN Creatinine Estimated GFR (MDRD) Glucose Calcium Total Bilirubin AST ALT Alkaline Phosphatase B-Natriuretic Peptide Total Protein Albumin Globulin Albumin/Globulin Ratio Lipase Urine Color YELLOW Urine Clarity CLEAR Urine pH 5.5 Ur Specific [place] 1.010 Urine Protein TRACE Urine Glucose (UA) >=1000 H Urine Ketones NEGATIVE Urine Occult Blood NEGATIVE Urine Nitrite NEGATIVE Urine Bilirubin NEGATIVE Urine Urobilinogen 0.2 (NORMAL) Ur Leukocyte Esterase NEGATIVE Ur Microscopic Review NOT INDICATED Urine Culture Comments NOT INDICATED Nasal Adenovirus (PCR) Nasal B. parapertussis DNA (PCR) Nasal Coronavir 229E PCR Nasal Coronavir HKU1 PCR Nasal Coronavir NL63 PCR Nasal Coronavir OC43 PCR Nasal Enterovir/Rhinovir PCR Nasal Influenza B PCR Nasal Influenza A PCR Nasal Parainfluen 1 PCR Nasal Parainfluen 2 PCR Nasal Parainfluen 3 PCR Nasal Parainfluen 4 PCR Nasal RSV (PCR) Nasal B.pertussis DNA PCR Nasal C.pneumoniae (PCR) Jesus Human Metapneumo PCR Nasal M.pneumoniae (PCR) Nasal SARS-CoV-2 (PCR) Serum Ketones - Rads (name of study) chest xray Radiology: Prelim report reviewed, See rad report PD MEDICAL DECISION MAKING - ED course Complexity details: reviewed results, re-evaluated patient, considered differential, d/w patient ED course: normotensive during ED stay, denies dyspnea on presentation as well as on reevaluation. elevated bun/creatinine c/w previous results. Blood sugar on fingerstick is 495 (higher on lab result). Given 2 liters NS and 8 units regular insulin IV with FSBS 301 and patient able to ambulate with walker in room, reports feeling well and comfortable with d/c home Departure - Departure Disposition: Home, Self Care Clinical Impression: Hyperglycemia Condition: Good Instructions: ED Hyperglycemia Diabetic Follow-Up: Marcin Rueda MD [Primary Care Provider] -
[2020-09-13] MEDS ORDERED: INSULIN REGULAR HUMAN 100 UNIT/1 ML 10 ML MDV IVP STA (01:58)
[2020-09-13] MEDS ORDERED: SODIUM CHLORIDE 0.9% 1,000 ML IV STA ×2 (01:58→03:11)
[2020-09-13 02:16] LABS: VBG PCO2 42.6 mmHg (41-51); VBG PH 7.301 (7.31-7.41); VBG PO2 25.7 mmHg (25-47); VBG TOTAL CO2 21.8 mmol/L (24-29)
[2020-09-13 02:17] LABS: BASOPHILS % (AUTO) 0.2 %; EOSINOPHILS # (AUTO) 0.2 10^3/uL (0.0-0.7); EOSINOPHILS % (AUTO) 2.3 %; HGB - HEMOGLOBIN 11.4 g/dL (14.0-18.0); LYMPHOCYTES # (AUTO) 1.8 10^3/uL (1.5-3.5); LYMPHOCYTES % (AUTO) 20.1 %; MEAN CORPUSCULAR HEMOGLOBIN 30.2 pg (27.0-31.0); MEAN CORPUSCULAR HGB CONC 32.8 g/dL (32.0-36.0); MEAN CORPUSCULAR VOLUME 92.3 fL (80.0-94.0); MONOCYTES # (AUTO) 0.5 10^3/uL (0.0-1.0); NEUTROPHILS # (AUTO) 6.4 10^3/uL (1.5-6.6); NEUTROPHILS % (AUTO) 71.1 %; PLT - PLATELET COUNT 224 10^3/uL (130-450); RED BLOOD COUNT 3.77 10^6/uL (4.70-6.10); RED CELL DISTRIBUTION WIDTH 11.9 % (12.0-15.0); VBG BASE EXCESS -5.6 mmol/L (-2 - +2); WHITE BLOOD COUNT 9.1 x10^3/uL (4.8-10.8)
[2020-09-13 02:23] LABS: INR 1.1 (0.8-1.2); PT - PROTHROMBIN TIME 12.1 secs (9.9-12.6)
[2020-09-13 02:26] LABS: KETONES, SERUM (ACETEST) NEGATIVE (NEGATIVE)
[2020-09-13 02:30] LABS: PARTIAL THROMBOPLASTIN TIME 25.5 secs (24.9-33.3)
[2020-09-13 02:32] LABS: ALBUMIN 3.8 g/dL (3.2-5.5); ALBUMIN/GLOBULIN RATIO 1.1 (1.0-2.2); ALKALINE PHOSPHATASE 106 IU/L (42-121); ALT ALANINE AMINOTRANSFERASE 20 IU/L (10-60); AST ASPARTATE AMINOTRANSFERASE 18 IU/L (10-42); BILIRUBIN,TOTAL 0.6 mg/dL (0.2-1.0); BUN - BLOOD UREA NITROGEN 56 mg/dL (6-20); CALCIUM 9.2 mg/dL (8.5-10.3); CARBON DIOXIDE - CO2 22 mmol/L (21-32); CHLORIDE 102 mmol/L (101-111); CREATININE 2.8 mg/dL (0.6-1.2); LIPASE 32 U/L (22-51); SODIUM 138 mmol/L (135-145); TOTAL PROTEIN 7.2 g/dL (6.7-8.2)
[2020-09-13 02:34] LABS: GLUCOSE 517 mg/dL (70-100)
[2020-09-13 03:26] LABS: C. PNEUMONIAE- RESP PCR PANEL NOT DETECTED
[2020-09-13 04:32] LABS: BILIRUBIN,URINE NEGATIVE (NEGATIVE); GLUCOSE, URINE (UA) >=1000 mg/dL (NEGATIVE); KETONES,URINE (UA) NEGATIVE (NEGATIVE); LEUKOCYTE ESTERASE, URINE NEGATIVE (NEGATIVE); NITRITE,URINE NEGATIVE (NEGATIVE); OCCULT BLOOD,URINE NEGATIVE (NEGATIVE); PH,URINE 5.5 PH (5.0-7.5); PROTEIN,URINE TRACE mg/dL (NEGATIVE); UROBILINOGEN,URINE 0.2 (NORMAL) E.U./dL (NORMAL)
[2020-09-13 04:33] LABS: CLARITY,URINE CLEAR (CLEAR)
[2020-09-13 07:31] VITALS: BP 129/72
--- NOTE | 2020-09-13 09:02 | XRAY Report ---
PROCEDURE: Chest 2 View X-Ray INDICATIONS: dyspnea TECHNIQUE: 2 view(s) of the chest. COMPARISON: 10/21/2016 FINDINGS: Surgical changes and devices: None. Lungs and pleura: An incomplete inspiratory result is noted, with low lung volumes and crowding of t he vascular markings. No focal infiltrates are seen. No large pneumothorax or large pleural effusion can be seen. Mediastinum: Mediastinal contours are normal. Heart size is normal. Bones and chest wall: No suspicious bony abnormalities. Age-appropriate degenerative changes are se en. Soft tissues appear unremarkable. IMPRESSION: Low lung volumes, without an acute cardiopulmonary process identified. Note: No significant discrepancy from the preliminary report. Reviewed by: Junior Lerner MD on 09/13/2020 8:01 AM [facility] Approved by: Junior Lerner MD on 09/13/2020 8:01 AM [facility] Station ID: [id number]
== END 2020-09-13 08:43 | disposition home or self-care (01) ==
LOC: EDUNIT# → ED 01:38
DX: E11.65 Type 2 diabetes mellitus with hyperglycemia (principal); Z79.4 Long term (current) use of insulin; I10 Essential (primary) hypertension; N28.9 Disorder of kidney and ureter, unspecified; Z20.828 Contact with and (suspected) exposure to other viral communicable diseases
CPT/HCPCS: 71046; 80053; 81003; 82009; 82803; 83690; 83880; 85025; 85610; 85730; 87631; 96360; 96361; 99284; J1815; 0202U; 81001; 87086

== ENCOUNTER 2020-09-16 10:32 | Outpatient (CLI) | payer MEDICARE, OTHER | END 2020-09-16 10:33 | disposition critical access hospital (66) | LOC: EMS 10:32 | PROVIDERS: ATTEND Surgery | DX: R53.1 Weakness (principal); R06.09 Other forms of dyspnea | CPT/HCPCS: A0425; A0429 ==

== ENCOUNTER 2020-10-25 09:11 | Outpatient (CLI) | payer MEDICARE, OTHER | END 2020-10-25 09:12 | disposition EMS.NT | LOC: EMS 09:11 | DX: R53.1 Weakness (principal) ==

== ENCOUNTER 2020-11-01 03:59 | Outpatient (CLI) | payer MEDICARE, OTHER, MEDICAID | END 2020-11-01 04:00 | disposition EMS.NT | LOC: EMS 03:59 | DX: Z03.89 Encounter for observation for other suspected diseases and conditions ruled out (principal) ==

== ENCOUNTER 2020-11-01 08:55 | Outpatient (CLI) | payer MEDICARE, OTHER, MEDICAID | END 2020-11-01 08:56 | disposition EMS.NT | LOC: EMS 08:55 | DX: Z03.89 Encounter for observation for other suspected diseases and conditions ruled out (principal) ==

== ENCOUNTER 2020-11-04 07:14 | Outpatient (CLI) | payer MEDICARE, OTHER, MEDICAID | END 2020-11-04 07:15 | disposition critical access hospital (66) | LOC: EMS 07:14 | PROVIDERS: ATTEND Emergency Medicine | DX: R53.1 Weakness (principal); R53.83 Other fatigue; R11.10 Vomiting, unspecified | CPT/HCPCS: A0425; A0427 ==

== ENCOUNTER 2020-11-04 07:36 | Inpatient (IN) | payer MEDICARE, OTHER, MEDICAID ==
[2020-11-04] MEDS ORDERED: SODIUM CHLORIDE 0.9% 1,000 ML IV STA ×2 (07:54→09:21)
--- NOTE | 2020-11-04 07:56 | ED Physician Documentation ---
PD HPI NVD - Stated complaint Stated Complaint: WEAKNESS - History obtained from History obtained from: Patient, Family ( via EMS), EMS (new onset general weakness, increased over baseline. He says he gets around with his walker with minimal assistance. They have home health a few times a week. His lives with his . He has been unable to get out of bed the last day or two.) - History of Present Illness Timing - onset: How many days ago (2-3) Timing - duration: Days (2-3) Timing - details: Gradual onset, Still present Associated symptoms: No: Fever, Abdominal pain Contributing factors: No: Sick contact, Bad food, Recent antibiotics Improved by: No: Eating ( says minimal appetitie for the past 3-4 days.) Similar symptoms before: Diagnosis (DKA, dehydration, general weakness.) Recently seen: Emergency Dept, Admitted (In early September (Sep 16) for DKA and weakness, went to Rehab for 5 weeks, per patient, and has been home just couple of weeks. He felt he was doing okay until the past few days, with progressive general weakness. says he was able to get around initially, but not able get up on own for 3-4 days.) Review of Systems Constitutional: denies: Fever Nose: denies: Rhinorrhea / runny nose, Congestion Throat: denies: Sore throat Respiratory: denies: Cough PD PAST MEDICAL HISTORY - Past Medical History Cardiovascular: Hypertension, High cholesterol Respiratory: Shortness of breath Neuro: None Endocrine/Autoimmune: Type 2 diabetes GI: None : Benign prostate hypertrophy, Incontinence, Renal insuffiency, Frequency HEENT: Chronic vision loss, Other Psych: Depression, Anxiety Musculoskeletal: Osteoarthritis, Fatigue, Chronic back pain, Other Derm: Other - Past Surgical History Past Surgical History: Yes Ortho: Spine surgery Derm: Skin cancer surgery - Present Medications Home Medications: Ambulatory Orders Medication Instructions Recorded Confirmed lisinopriL [Lisinopril] 40 mg PO DAILY 06/07/14 11/04/20 Amlodipine Besylate 10 mg PO DAILY 11/15/17 11/04/20 Atorvastatin Calcium 40 mg PO QPM 11/15/17 11/04/20 Hydralazine HCl 25 mg PO BID 11/15/17 11/04/20 Levothyroxine [Synthroid] 25 mcg PO .DAILYAC 11/15/17 11/04/20 Nortriptyline [Pamelor] 25 mg PO QPM 11/15/17 11/04/20 Terazosin [Hytrin] 5 mg PO QPM 11/15/17 11/04/20 Docusate Sodium [Dss] 250 mg PO QPM 10/18/19 11/04/20 carvediloL [Coreg] 12.5 mg PO DAILY 09/13/20 11/04/20 Acetaminophen/Diphenhydramine 2 tab PO QPM PRN 09/16/20 11/04/20 [Acetaminophen-Diphenhyd 500-25] Aspirin EC [Ecotrin] 81 mg PO DAILY 09/17/20 11/04/20 Insulin Aspart [NovoLOG] 6 units SUBQ TIDWM 11/04/20 11/04/20 Insulin Glargine [Lantus Solostar] 20 units SUBQ QPM 11/04/20 11/04/20 Torsemide 20 mg PO BID 11/04/20 11/04/20 - Allergies Allergies/Adverse Reactions: Allergies Allergy/AdvReac Type Severity Reaction Status Date / Time No Known Drug Allergies Allergy Verified 11/04/20 08:08 - Living Situation Living Situation: reports: With spouse/s.o. Living Arrangement: reports: At home - Social History Does the pt smoke?: No Smoking Status: Never smoker Does the pt drink ETOH?: No Does the pt have substance abuse?: No - Immunizations Immunizations are current?: Yes - POLST Patient has POLST: Yes POLST Status: DNR (He reaffirms today that he does not want dialysis nor aggressive interventions.) PD ED PE NORMAL - Vitals Vital signs reviewed: Yes - General General: Alert and oriented X 3, No acute distress, Well developed/nourished - HEENT HEENT: Pharynx benign. No: Moist mucous membranes - Neck Neck: Supple, no meningeal sign, No adenopathy - Cardiac Cardiac: RRR, No murmur - Respiratory Respiratory: Clear bilaterally - Abdomen Abdomen: Soft, No organomegaly, Other (His abdomen is distended in the suprapubic and mid abdomen. There is some fullness in the periumbilical area that might be a hernia versus soft tissue density. Bowel sounds are hypoactive. Mild mid to lower abdominal tenderness.) - Male Male : Other (normal external genitalia.) - Back Back: No CVA TTP - Derm Derm: Normal color, Warm and dry - Extremities Extremities: No tenderness to palpate, Normal ROM s pain, No edema, No calf tenderness / cord - Neuro Neuro: Alert and oriented X 3, No motor deficit, Normal speech Eye Opening: Spontaneous Motor: Obeys Commands Verbal: Oriented GCS Score: 15 Results - Vitals Vitals: Vital Signs - 24 hr 11/04/20 07:37 Temperature 36.9 C Heart Rate 81 Respiratory 16 Rate Blood Pressure 110/70 O2 Saturation 98 Oxygen O2 Source Room air - Labs Labs: Laboratory Tests 11/04/20 11/04/20 11/04/20 08:10 08:10 08:10 WBC 9.4 RBC 3.41 L Hgb 9.9 L Hct 31.4 L MCV 92.1 MCH 29.0 MCHC 31.5 L RDW 12.2 Plt Count 362 MPV 8.4 Neut # (Auto) 7.2 H Lymph # (Auto) 1.1 L [place] # (Auto) 0.9 Eos # (Auto) 0.2 Baso # (Auto) 0.0 Absolute Nucleated RBC 0.00 Nucleated RBC % 0.0 VBG pH VBG pCO2 VBG pO2 VBG HCO3 VBG Total CO2 VBG O2 Saturation VBG Base Excess Sodium 131 L Potassium 6.2 H* Chloride 99 L Carbon Dioxide 19 L Anion Gap 13.0 BUN 95 H* Creatinine 5.4 H Estimated GFR (MDRD) 10 L Glucose 246 H Lactic Acid Calcium 9.2 Total Bilirubin 0.6 AST 42 ALT 25 Alkaline Phosphatase 86 Troponin I High Sens 10.7 Total Protein 7.8 Albumin 3.2 Globulin 4.6 H Albumin/Globulin Ratio 0.7 L Lipase 25 Serum Ketones NEGATIVE 11/04/20 11/04/20 08:10 08:10 WBC RBC Hgb Hct MCV MCH MCHC RDW Plt Count MPV Neut # (Auto) Lymph # (Auto) [place] # (Auto) Eos # (Auto) Baso # (Auto) Absolute Nucleated RBC Nucleated RBC % VBG pH 7.323 VBG pCO2 37.9 L VBG pO2 20.4 L VBG HCO3 19.2 L VBG Total CO2 20.4 L VBG O2 Saturation 32.9 L VBG Base Excess -6.2 L Sodium Potassium Chloride Carbon Dioxide Anion Gap BUN Creatinine Estimated GFR (MDRD) Glucose Lactic Acid 0.9 Calcium Total Bilirubin AST ALT Alkaline Phosphatase Troponin I High Sens Total Protein Albumin Globulin Albumin/Globulin Ratio Lipase Serum Ketones - Rads (name of study) abd CT Radiology: Prelim report reviewed (dilated bladder related to outlet obstruction. Mod bilateral hydro ureter and nephrosis. No other acute process. ), See rad report PD MEDICAL DECISION MAKING - ED course Complexity details: reviewed results (CT showing large full bladder. No hernias nor signs of obstruction. ), re-evaluated patient (I discussed with the patient is significantly worse renal function along with a full bladder. He affirmed with me that he is not wanting any aggressive measures and definitely not wanting dialysis and is DNR. He is agreeable to a Evangelista catheter and hospital admission.), considered differential (He is alert and conversant with reasonable memory of recent fax and symptoms. He denies a feeling of needing to urinate at this time. There is considerable abdominal fullness. CT scan will be gotten to evaluate for other causes. He will be given IV fluids and check labs.), d/w patient, d/w family (spoke with his by phone.) ED course: The patient has general weakness with acute on chronic renal failure and abnormal electrolytes, particularly potassium elevated. This likely relates to obstructive uropathy compounded by poor oral intake over the last few days. Hopefully this is more easily reversible with Evangelista catheter and IV fluids. Departure - Departure Disposition: [facility] DC/Xfer Clinical Impression: Generalized weakness, Acute urinary retention, Obstructive uropathy, Hyperkalemia Acute on chronic renal failure Qualifiers: Acute renal failure type: unspecified Chronic kidney disease stage: unspecified stage Qualified Code(s): N17.9 - Acute kidney failure, unspecified Nausea and vomiting Qualifiers: Vomiting type: unspecified Vomiting Intractability: non-intractable Qualified Code(s): R11.2 - Nausea with vomiting, unspecified Condition: Stable Record reviewed to determine appropriate education?: Yes Discharge Date/Time: 11/04/20 10:51
[2020-11-04 08:15] LABS: BASOPHILS % (AUTO) 0.3 %; EOSINOPHILS # (AUTO) 0.2 10^3/uL (0.0-0.7); EOSINOPHILS % (AUTO) 1.9 %; HCT - HEMATOCRIT 31.4 % (42.0-52.0); HGB - HEMOGLOBIN 9.9 g/dL (14.0-18.0); LYMPHOCYTES # (AUTO) 1.1 10^3/uL (1.5-3.5); LYMPHOCYTES % (AUTO) 11.4 %; MEAN CORPUSCULAR HGB CONC 31.5 g/dL (32.0-36.0); MEAN CORPUSCULAR VOLUME 92.1 fL (80.0-94.0); MEAN PLATELET VOLUME 8.4 fL (7.4-11.4); MONOCYTES # (AUTO) 0.9 10^3/uL (0.0-1.0); MONOCYTES % (AUTO) 9.4 %; NEUTROPHILS # (AUTO) 7.2 10^3/uL (1.5-6.6); NEUTROPHILS % (AUTO) 76.1 %; PLT - PLATELET COUNT 362 10^3/uL (130-450); RED BLOOD COUNT 3.41 10^6/uL (4.70-6.10); RED CELL DISTRIBUTION WIDTH 12.2 % (12.0-15.0); WHITE BLOOD COUNT 9.4 x10^3/uL (4.8-10.8)
[2020-11-04 08:18] LABS: VBG BASE EXCESS -6.2 mmol/L (-2 - +2); VBG HCO3 19.2 mmol/L (23-28); VBG OXYGEN SATURATION 32.9 % (60-80); VBG PCO2 37.9 mmHg (41-51); VBG PH 7.323 (7.31-7.41); VBG PO2 20.4 mmHg (25-47); VBG TOTAL CO2 20.4 mmol/L (24-29)
[2020-11-04 08:19] LABS: KETONES, SERUM (ACETEST) NEGATIVE (NEGATIVE)
--- NOTE | 2020-11-04 08:39 | XRAY Report ---
PROCEDURE: Chest 1 View X-Ray INDICATIONS: Chest pain TECHNIQUE: One view of the chest was acquired. COMPARISON: 09/16/2020 FINDINGS: Surgical changes and devices: None. Lungs and pleura: No pleural effusions or pneumothorax. Lungs are clear. Mediastinum: Mediastinal contours appear normal. Heart size is normal. Bones and chest wall: No suspicious bony lesions. Overlying soft tissues appear unremarkable. IMPRESSION: No acute cardiopulmonary process demonstrated radiographically. Reviewed by: Hima Valentine MD on 11/04/2020 8:37 AM [facility] Approved by: Hima Valentine MD on 11/04/2020 8:37 AM [facility] Station ID: [id number]
[2020-11-04 08:42] LABS: ALBUMIN 3.2 g/dL (3.2-5.5); ALBUMIN/GLOBULIN RATIO 0.7 (1.0-2.2); ALKALINE PHOSPHATASE 86 IU/L (42-121); ALT ALANINE AMINOTRANSFERASE 25 IU/L (10-60); AST ASPARTATE AMINOTRANSFERASE 42 IU/L (10-42); BILIRUBIN,TOTAL 0.6 mg/dL (0.2-1.0); CALCIUM 9.2 mg/dL (8.5-10.3); CARBON DIOXIDE - CO2 19 mmol/L (21-32); CHLORIDE 99 mmol/L (101-111); CREATININE 5.4 mg/dL (0.6-1.2); GFR - MDRD 10 (>89); GLUCOSE 246 mg/dL (70-100); LIPASE 25 U/L (22-51); POTASSIUM 6.2 mmol/L (3.5-5.0); SODIUM 131 mmol/L (135-145); TOTAL PROTEIN 7.8 g/dL (6.7-8.2)
[2020-11-04 08:43] LABS: BUN - BLOOD UREA NITROGEN 95 mg/dL (6-20)
[2020-11-04] MEDS ORDERED: SODIUM BICARBONATE ABBOJECT 50 MEQ/50 ML SYRINGE IVP STA (08:50)
[2020-11-04] MEDS ORDERED: INSULIN REGULAR HUMAN 100 UNIT/1 ML 10 ML MDV IVP STA (08:51)
[2020-11-04] MEDS ORDERED: ACETAMINOPHEN 325 MG TABLET PO PRN (09:15)
[2020-11-04] MEDS ORDERED: SODIUM CHLORIDE FLUSH 0.9% 10 ML SYRINGE IVP PRN (09:15)
[2020-11-04] MEDS ORDERED: ONDANSETRON 4 MG/2 ML VIAL IVP PRN (09:15)
--- NOTE | 2020-11-04 09:17 | CT Report ---
PROCEDURE: Abdomen/Pelvis WO INDICATIONS: mid abd tender with vomiting TECHNIQUE: Noncontrast 5 mm thick sections acquired from the diaphragms to the symphysis. 5 mm coronal and sagi ttal reformats were then performed. For radiation dose reduction, the following was used: automated exposure control, adjustment of mA and/or kV according to patient size. COMPARISON: CT abdomen and pelvis without contrast dated 01/28/2017 FINDINGS: Image quality: Excellent. ABDOMEN: Lung bases: Lung bases are clear. Heart size is normal. Moderate coronary artery calcifications. M ild cardiomegaly with left ventricular and left atrial enlargement. Solid organs: Liver and spleen are normal in size. Gallbladder contains multiple small stones. No g allbladder wall thickening. Pancreas is normal in contours. No adrenal nodules. There is moderate bi lateral hydronephrosis and hydroureter down to the level of the bladder. No obstructing stones. No re nal stones. Peritoneum and bowel: Unenhanced bowel loops demonstrate normal wall thickness and caliber. No free fluid or air. Nodes and vessels: No retroperitoneal or mesenteric adenopathy by size criteria. Aorta is of normal caliber. 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 Venous structure s are somewhat diminished in caliber. Question volume of dictation. Miscellaneous: No ventral hernias. PELVIS: Genitourinary: Marked distention of the bladder. Enlarged prostate. Miscellaneous: Small left inguinal hernia containing fat. No inguinal adenopathy. Bones: No suspicious bony lesions. No vertebral body compression fractures. Multilevel lumbar degen erative change. Multilevel canal stenosis. IMPRESSION: 1. Findings are consistent with bladder outlet obstruction. The bladder is markedly distended. There is no bladder wall thickening. There is moderate bilateral hydronephrosis and hydroureter. 2. Cholelithiasis. 3. Coronary artery disease, mild cardiomegaly. 4. Duplicated inferior vena cava. 5. Diminished caliber venous structures. Question volume depletion. Reviewed by: Tuan Hess MD on 11/04/2020 9:15 AM PST Approved by: Tuan Hess MD on 11/04/2020 9:15 AM PST Station ID: [id number]
--- NOTE | 2020-11-04 09:27 | HISTORY & PHYSICAL EXAMINATION ---
Chief Complaint - Chief Complaint Chief Complaint: I think it is my diabetes History of Present Illness - Admitted From Admitted From:: Home - History Obtained From Records Reviewed: Yes History obtained from: Patient, , ER Physician, EMR Exam Limitations: Patient has dementia and is a poor historian. - History of Present Illness HPI Comment/Other: This is a 80-year-old male with a past medical history significant for type 2 diabetes mellitus treated with insulin, chronic diastolic heart failure, hypertension, chronic kidney disease, dementia who presents today from home due to multiple falls. Patient does have dementia and is a poor historian at baseline. He believes he is here to the hospital because of his diabetes. When asked why he thinks his diabetes brought him here, he tells me it was his blood sugars. I asked him what his blood glucose was and he felt that it was around 155. I asked him why he thought he should come to the hospital if his blood glucose was 155 and he was unable to tell me. He did give me permission to speak with his who told me that the patient was discharged from [facility] on October 20. Since he has been home for the past 2 weeks, he has had progressive weakness with multiple falls. He fell a couple of days ago but did not want her to call 911 and so neighbors helped him get back into a chair. She states that he continues to fall and has become increasingly weak and so she brought him to the emergency department today. The patient states he does feel weak but denies any focal deficits. He feels a little more confused than usual and his tells me that he may be slightly confused but he does have dementia at baseline. The patient denies any chest pain or difficulty breathing. He denies any difficulty urinating, dysuria, urgency. His tells me that he has attempted to urinate multiple times over the past week and has had increasing frequency and urgency. The patient denies any abdominal pain, nausea, vomiting. He does report feeling thirsty. He denies any poor oral intake. The emergency department, he was found to be hemodynamically stable. His labs were significant for a creatinine of 5.4, BUN of 95, potassium of 6.2. Troponin and lactic acid were normal. He was complaining of abdominal discomfort and the emergency room provider felt a mass in his lower abdomen and so a CT of the abdomen and pelvis was obtained without contrast which revealed a distended bladder with moderate bilateral hydronephrosis and concerns for bladder outlet obstruction. He was given 3 units of IV insulin, sodium bicarbonate and a liter of IV fluids in the emergency department. Patient has made it clear in the past that he does not want dialysis and he is a DNR with limited interventions. I also discussed this with his who confirms this. He has a POLST form which states she is a DNR with limited interventions. Given the above findings, medicine was consulted for admission. History - Past Medical History Cardiovascular: reports: Congestive heart failure, Hypertension, High cholesterol Neuro: reports: None Endocrine/Autoimmune: reports: Type 2 diabetes GI: reports: None : reports: Benign prostate hypertrophy, Incontinence, Renal insuffiency, Frequency HEENT: reports: Chronic vision loss Psych: reports: Depression, Anxiety Musculoskeletal: reports: Osteoarthritis, Fatigue, Chronic back pain, Other Derm: reports: Other MRSA Hx?: No - Past Surgical History Ortho: reports: Spine surgery Derm: reports: Skin cancer surgery - Family & Social History Family History: Mother: , CAD, COPD/Emphysema, Father: , COPD/ Emphysema Family History Comment/Other: Review of records state that both his parents had emphysema. They were smokers. He tells me his mother also had heart disease. Living arrangement: At home Living Situation: With spouse/s.o. Social History Notes: The patient lives at home with his , Marianela. He was just discharged from a correction facility about 2 weeks ago. He does have dementia at baseline. He has never smoked and will occasionally drink alcohol. - POLST Patient has POLST: Yes Meds/Allgy - Home Medications Home Medications: Ambulatory Orders Medication Instructions Recorded Confirmed lisinopriL [Lisinopril] 40 mg PO DAILY 06/07/14 11/04/20 Amlodipine Besylate 10 mg PO DAILY 11/15/17 11/04/20 Atorvastatin Calcium 40 mg PO QPM 11/15/17 11/04/20 Hydralazine HCl 25 mg PO BID 11/15/17 11/04/20 Levothyroxine [Synthroid] 25 mcg PO .DAILYAC 11/15/17 11/04/20 Nortriptyline [Pamelor] 25 mg PO QPM 11/15/17 11/04/20 Terazosin [Hytrin] 5 mg PO QPM 11/15/17 11/04/20 Docusate Sodium [Dss] 250 mg PO QPM 10/18/19 11/04/20 carvediloL [Coreg] 12.5 mg PO DAILY 09/13/20 11/04/20 Acetaminophen/Diphenhydramine 2 tab PO QPM PRN 09/16/20 11/04/20 [Acetaminophen-Diphenhyd 500-25] Aspirin EC [Ecotrin] 81 mg PO DAILY 09/17/20 11/04/20 Insulin Aspart [NovoLOG] 6 units SUBQ TIDWM 11/04/20 11/04/20 Insulin Glargine [Lantus Solostar] 20 units SUBQ QPM 11/04/20 11/04/20 Torsemide 20 mg PO BID 11/04/20 11/04/20 - Allergies Allergies/Adverse Reactions: Allergies Allergy/AdvReac Type Severity Reaction Status Date / Time No Known Drug Allergies Allergy Verified 11/04/20 08:08 Review of Systems - Constitutional Constitutional: reports: Fatigue, Weakness. denies: Fever, Chills - Eyes Eyes: denies: Blurred vision - Cardiovascular Cariovascular: reports: Lightheadedness. denies: Chest pain, Edema, Exertional dyspnea, Decr. exercise tolerance - Respiratory Respiratory: denies: Cough, SOB at rest, SOB with exertion - Gastrointestinal Gastrointestinal: denies: Abdominal pain, Nausea, Vomiting - Genitourinary Genitourinary: denies: Dysuria, Frequency, Hematuria - Neurological Neurological: reports: General weakness, Dizziness, Other (Confusion.). denies: Focal weakness - All Other Systems All Other Systems: reports: Other (Review of systems is limited given his dementia.) Prior Level of Functionality: He was discharged from [facility] 2 weeks ago. He ambulates with a walker at baseline. Lives at home with his . Exam - Vital Signs Reviewed Vital Signs: Yes Vital Signs: Vital Signs x48h Temp Pulse Resp BP Pulse Ox 11/04/20 07:37 36.9 C 81 16 110/70 98 - Physical Exam General Appearance: positive: No acute distress, Alert Eyes Bilateral: positive: Normal inspection, Conjunctivae nml ENT: positive: Dry mucous membranes, Other (Oral candidiasis.). negative: No signs of dehydration Neck: positive: Nml inspection Respiratory: positive: No respiratory distress. negative: Wheezes, Rales Cardiovascular: positive: Regular rate & rhythm, No murmur. negative: Tachycardia, Systolic murmur Abdomen: positive: Non-tender, No distention. negative: Tenderness, Guarding, Rebound Skin: positive: Warm, Dry Extremities: positive: Pedal edema (Trace edema in bilateral lower extremities.) Neurologic/Psychiatric: positive: Disoriented to time, Other (No focal deficits.). negative: Disoriented to person, Disoriented to place Conclusion/Plan - Problem List (1) Acute on chronic renal failure Conclusion/Plan: He is acute on chronic kidney injury secondary to bladder outlet obstruction. He has CKD at baseline likely secondary to his diabetes. Imaging was consistent with bladder outlet obstruction and he had bilateral moderate hydronephrosis. A Evangelista catheter was placed with over 600 mL of urine output. We will admit him for IV fluids and continue with Evangelista catheter placement. We will recheck a BMP this morning to ensure that his renal function is improving. He has stated that he does not want dialysis and has made this quite clear. He will likely need to be discharged with a Evangelista catheter and have outpatient follow-up with urology. Avoid nephrotoxins. Hold lisinopril. Qualifiers: Acute renal failure type: unspecified Chronic kidney disease stage: unspec ified stage Qualified Code(s): N17.9 - Acute kidney failure, unspecified; N18.9 - Chronic kidney disease, unspecified (2) Bladder outlet obstruction Conclusion/Plan: This is likely secondary to enlarged prostate. He has a distended bladder and bilateral moderate hydronephrosis on imaging. We will continue his home Terazosin and start him on Flomax. We will keep the Evangelista catheter in place and have him follow-up with urology on outpatient basis (3) Urinary tract infection Conclusion/Plan: Urinalysis is suggestive of infection and his urine is quite purulent. Although he has no symptoms, we will treat him given he will need a Evangelista catheter on discharge. We will place him on ceftriaxone 1 g IV daily. He does not appeared be septic at this point and we will hold off on blood cultures. Qualifiers: Urinary tract infection type: acute cystitis Hematuria presence: without hematuria Qualified Code(s): N30.00 - Acute cystitis without hematuria (4) Hyperkalemia Conclusion/Plan: Secondary to acute renal failure. Received sodium bicarbonate and 2 units of IV insulin in the emergency department. This should improve as his renal function now that we have placed a Evangelista catheter. We will recheck a BMP this morning to ensure his potassium is trending down. Will monitor on telemetry (5) Insulin dependent type 2 diabetes mellitus Conclusion/Plan: His last A1c was 7.9%. We will continue his home Lantus and NovoLog dosing. Carb controlled diet. (6) Dementia Conclusion/Plan: He does have dementia at baseline. His does not believe that he is much more confused than usual. He may have some worsening confusion due to his renal failure. We will avoid sedatives and treat underlying renal failure. His is concerned about taking care of him at home given his multiple falls and we will place a social work consult. (7) Chronic heart failure with preserved ejection fraction Conclusion/Plan: Not appear to be in exacerbation at this time. His last echocardiogram from September revealed a preserved ejection fraction. We will hold his home Lasix given the acute kidney injury. We will gently hydrate him. (8) Hypertension Conclusion/Plan: He is currently normotensive. We will hold his home antihypertensives for the time being and will resume when appropriate. Continue with IV hydration given the acute kidney injury. (9) Anemia in chronic kidney disease Conclusion/Plan: He has chronic anemia and his hemoglobin is at baseline. This is likely secondary to his chronic kidney disease. We will monitor for signs of bleeding during this hospitalization. (10) Hypothyroidism Conclusion/Plan: Continue Synthroid. We will check a TSH. (11) Oral thrush Conclusion/Plan: Will place him on clotrimazole for 5 days. - Lab Results Lab results reviewed: Yes Fish Bones: 11/04/20 08:10 11/04/20 14:26 - Diagnostic Imaging Results Diagnostic Imaging Results: positive: Final report reviewed - EKG Results EKG Interpreted Independently: Yes EKG Findings: EKG shows sinus rhythm without ischemic changes. He has a nonspecific intraventricular conduction delay. No peaked T waves. Core Measures - Anticipated LOS I expect patient to be DC'd or transferred within 96 hours.: Yes - Issues Hospital Issues and Management Plan: 80-year-old male presents with acute kidney injury on chronic kidney disease. This is secondary to bladder outlet obstruction. A Evangelista catheter has been placed we will hydrate him with IV fluids. Monitor renal function. - DVT/VTE - Prophylaxis VTE/DVT Device ordered at admit?: Yes VTE/DVT Prophylaxis med ordered at admit?: Yes
[2020-11-04 09:34] LABS: BILIRUBIN,URINE NEGATIVE (NEGATIVE); GLUCOSE, URINE (UA) NEGATIVE (NEGATIVE); KETONES,URINE (UA) NEGATIVE (NEGATIVE); LEUKOCYTE ESTERASE, URINE MODERATE (NEGATIVE); NITRITE,URINE NEGATIVE (NEGATIVE); OCCULT BLOOD,URINE SMALL (NEGATIVE); PROTEIN,URINE 100 mg/dL (NEGATIVE); UROBILINOGEN,URINE 0.2 (NORMAL) E.U./dL (NORMAL)
[2020-11-04 09:37] LABS: CLARITY,URINE CLOUDY (CLEAR)
[2020-11-04 09:49] LABS: BACTERIA,URINE Few /HPF (None Seen); SQUAMOUS EPITHELIAL CELL,UR NONE SEEN (<= Few); WBC,URINE >25 /HPF (0-3)
[2020-11-04] MEDS ORDERED: TAMSULOSIN 0.4 MG CAPSULE PO SCH (10:00)
[2020-11-04] MEDS ORDERED: cefTRIAXone 1 GM VIAL IVP STA (10:12)
[2020-11-04 11:12] LABS: CALCIUM 9.3 mg/dL (8.5-10.3); CREATININE 5.3 mg/dL (0.6-1.2); POTASSIUM 5.8 mmol/L (3.5-5.0)
[2020-11-04 11:39] LABS: B. PARAPERTUSSIS- RESP PCR PAN NOT DETECTED; B. PERTUSSIS- RESP PCR PANEL NOT DETECTED; C. PNEUMONIAE- RESP PCR PANEL NOT DETECTED; CORONAVIRUS 229E-RESP PCR NOT DETECTED; CORONAVIRUS HKU1-RESP PCR NOT DETECTED; CORONAVIRUS NL63-RESP PCR NOT DETECTED; CORONAVIRUS OC43-RESP PCR NOT DETECTED; HUMAN METAPNEUMOVIRUS NOT DETECTED; INFLUENZA A- RESP PCR PANEL NOT DETECTED; INFLUENZA B - RESP PCR PANEL NOT DETECTED; M. PNEUMONIAE- RESP PCR PANEL NOT DETECTED; PARAINFLUENZA VIRUS 1 NOT DETECTED; PARAINFLUENZA VIRUS 2 NOT DETECTED; PARAINFLUENZA VIRUS 3 NOT DETECTED; PARAINFLUENZA VIRUS 4 NOT DETECTED; RHINOVIRUS/ENTEROVIRUS NOT DETECTED; RSV- RESP PCR PANEL NOT DETECTED; SARS-CoV-2 -RESP PCR PANEL NOT DETECTED
[2020-11-04] MEDS: LEVOTHYROXINE 25 MCG TABLET PO SCH (11:49)
[2020-11-04] MEDS: INSULIN ASPART 300 UNIT/3 ML PEN SUBQ SCH ×4 (11:49→20:24)
--- NOTE | 2020-11-04 12:33 | PHARMACY PROGRESS NOTE ---
- Best Possible Medication History Admit Date and Time: 11/04/20 0915 Processed by: Pharmacy Medication History completed: Yes Patient Interview: Completed Secondary Source(s): Spouse/Significant other, Physician records, Pharmacy records, Insurance records As the person ultimately responsible for medication therapy, providers are able to order a medication from an existing home medication list in [facility] via the "Reconcile Routine" prior to Confirmation of that medication by data support specialist. Such practice is discouraged except when the physician, in their clinical judgment, deems that a medical need exists for a medication without regard to previous use.
[2020-11-04] MEDS: LACTATED RINGERS 1,000 ML IV SCH ×2 (12:59→20:09)
[2020-11-04] MEDS: CLOTRIMAZOLE 10 MG LOZENGE MM SCH ×3 (13:03→21:01)
[2020-11-04 15:18] LABS: CALCIUM 9.1 mg/dL (8.5-10.3); CREATININE 5.1 mg/dL (0.6-1.2); POTASSIUM 5.7 mmol/L (3.5-5.0)
[2020-11-04] MEDS: SODIUM CHLORIDE FLUSH 0.9% 10 ML SYRINGE IVP SCH (16:51)
[2020-11-04] MEDS: NORTRIPTYLINE 25 MG CAPSULE PO SCH (20:09)
[2020-11-04] MEDS: ATORVASTATIN 40 MG TABLET PO SCH (20:09)
[2020-11-04] MEDS: TERAZOSIN 1 MG CAPSULE PO SCH (20:09)
[2020-11-04] MEDS: TERAZOSIN 2 MG CAPSULE PO SCH (20:10)
[2020-11-04] MEDS: INSULIN GLARGINE 300 UNIT/3 ML PEN SUBQ SCH (20:23)
[2020-11-04] MEDS ORDERED: HEPARIN 5,000 UNIT/ML VIAL SUBQ SCH (21:00)
[2020-11-04 22:42] LABS: CALCIUM 8.8 mg/dL (8.5-10.3); CREATININE 4.8 mg/dL (0.6-1.2); POTASSIUM 5.7 mmol/L (3.5-5.0)
[2020-11-05] MEDS: SODIUM CHLORIDE FLUSH 0.9% 10 ML SYRINGE IVP SCH ×3 (01:27→17:16)
[2020-11-05 05:19] LABS: BASOPHILS % (AUTO) 0.2 %; EOSINOPHILS # (AUTO) 0.1 10^3/uL (0.0-0.7); EOSINOPHILS % (AUTO) 0.7 %; HCT - HEMATOCRIT 27.1 % (42.0-52.0); HGB - HEMOGLOBIN 8.6 g/dL (14.0-18.0); LYMPHOCYTES # (AUTO) 1.7 10^3/uL (1.5-3.5); LYMPHOCYTES % (AUTO) 12.3 %; MEAN CORPUSCULAR HEMOGLOBIN 28.9 pg (27.0-31.0); MEAN CORPUSCULAR HGB CONC 31.7 g/dL (32.0-36.0); MEAN CORPUSCULAR VOLUME 90.9 fL (80.0-94.0); MEAN PLATELET VOLUME 8.8 fL (7.4-11.4); MONOCYTES # (AUTO) 1.3 10^3/uL (0.0-1.0); MONOCYTES % (AUTO) 9.2 %; NEUTROPHILS # (AUTO) 10.7 10^3/uL (1.5-6.6); NEUTROPHILS % (AUTO) 76.9 %; PLT - PLATELET COUNT 337 10^3/uL (130-450); RED BLOOD COUNT 2.98 10^6/uL (4.70-6.10); RED CELL DISTRIBUTION WIDTH 12.3 % (12.0-15.0)
[2020-11-05] MEDS: CLOTRIMAZOLE 10 MG LOZENGE MM SCH ×5 (05:27→22:54)
[2020-11-05 05:37] LABS: CALCIUM 8.6 mg/dL (8.5-10.3); CREATININE 4.3 mg/dL (0.6-1.2); MAGNESIUM 2.2 mg/dL (1.7-2.8); PHOSPHORUS 3.7 mg/dL (2.5-4.6); POTASSIUM 5.4 mmol/L (3.5-5.0)
[2020-11-05] MEDS: LACTATED RINGERS 1,000 ML IV SCH ×3 (05:45→20:32)
[2020-11-05] MEDS: LEVOTHYROXINE 25 MCG TABLET PO SCH (07:14)
[2020-11-05] MEDS: INSULIN ASPART 300 UNIT/3 ML PEN SUBQ SCH ×7 (08:08→21:05)
[2020-11-05] MEDS: ASPIRIN EC 81 MG TABLET PO SCH (08:21)
[2020-11-05] MEDS ORDERED: carvediloL 12.5 MG TABLET PO SCH (09:00)
[2020-11-05] MEDS ORDERED: cefTRIAXone 1 GM in SODIUM CHLORIDE 0.9% MINIBAG 100 ML IV SCH (09:00)
[2020-11-05] MEDS: AMPICILLIN 1 GM in SODIUM CHLORIDE 0.9% MINIBAG 100 ML IV SCH ×2 (12:06→22:54)
[2020-11-05 12:39] LABS: ESTIMATED AVERAGE GLUCOSE 189 mg/dL (70-100); HEMOGLOBIN A1c% 8.2 % (4.27-6.07)
--- NOTE | 2020-11-05 14:45 | PROVIDER PROGRESS NOTE ---
Assessment/Plan - Problem List (1) Acute on chronic renal failure Qualifiers: Acute renal failure type: unspecified Chronic kidney disease stage: unspecified stage Qualified Code(s): N17.9 - Acute kidney failure, unspecified; N18.9 - Chronic kidney disease, unspecified Assessment/Plan: 11/05, improved. Today patient's creatinine is 4.3 from 5.3 at admission. acute on chronic kidney injury secondary to bladder outlet obstruction. CT Imaging show bladder outlet obstruction, likely secondary to his BPH and had bilateral moderate hydronephrosis. A Evangelista catheter was placed with over 600 mL of urine output. He stated that he does not want dialysis. Avoid nephrotoxins. Hold lisinopril now. continue IV hydration and continue Evangelista catheter and outpatient follow-up with urology (2) Bladder outlet obstruction This is likely secondary to enlarged prostate. will continue his home Terazosin. We will keep the Evangelista catheter in place and have him follow-up with urology on outpatient basis (3) Urinary tract infection Conclusion/Plan: WBC is slight elevated. But pt has no fever, BP is stable. Urinalysis is suggestive of infection and his urine is quite purulent, and positive enterococcus. Since enterococcus naturally resistance to cephalosporins, will switch to Amp, and followup with UA culture and sensitivity study. (4) Hyperkalemia Conclusion/Plan: improved. agree it is likely Secondary to acute renal failure. Received sodium bicarbonate and 2 units of IV insulin in the emergency department. continue IVF, and lab monitor, continue monitor on telemetry (5) Insulin dependent type 2 diabetes mellitus Conclusion/Plan: His A1c was 8.2%. We will continue Lantus and NovoLog dosing with slide scale. Carb controlled diet. (6) Dementia Conclusion/Plan: pt has dementia at baseline. In H&P note, His does not believe that he is much more confused than usual. pt still has confusion on today due to his renal failure and acute UTI infection. We will avoid sedatives and treat underlying renal failure, and infection. His is concerned about taking care of him at home given his multiple falls and we will place a social work consult, add PT/OT (7) Chronic heart failure with preserved ejection fraction Conclusion/Plan: agree pt has Not acute in exacerbation at this time. His last echocardiogram from September revealed a preserved ejection fraction. We will hold his home Lasix given the acute kidney injury. We will gently hydrate him. continue vital sign monitor (8) Hypertension Conclusion/Plan: pt is currently normotensive, continue hold his home antihypertensives for the time being and will resume when appropriate. Continue with IV hydration given the acute kidney injury, continue vial sign monitor (9) Anemia in chronic kidney disease Conclusion/Plan: pt has chronic anemia, his hemoglobin is at his baseline. agree This is likely secondary to his chronic kidney disease. We will monitor for signs of bleeding during this hospitalization, will add anemia study (10) Hypothyroidism Conclusion/Plan: Continue Synthroid, TSH is normal (11) Oral thrush Conclusion/Plan: continue place him on clotrimazole for 5 days. - Current Meds Current Meds: Current Medications Generic Name Dose Route Start Last Admin Trade Name Hakeemq PRN Reason Stop Dose Admin Aspirin 81 mg 11/05/20 09:00 11/05/20 08:21 Aspirin Ec 81 Mg Tablet PO 81 mg DAILY ROXANNA Administration Atorvastatin Calcium 40 mg 11/04/20 21:00 11/04/20 20:09 Atorvastatin 40 Mg Tablet PO 40 mg QPM ROXNANA Administration Clotrimazole 10 mg 11/04/20 14:00 11/05/20 13:30 Clotrimazole 10 Mg Lozenge MM 10 mg 5XD ROXANNA Administration Lactated Ringer's 1,000 mls @ 150 mls/hr 11/04/20 10:00 11/05/20 13:31 Lr IV 150 mls/hr .Q6H40M ROXANNA Administration Ampicillin Sodium 1 gm/ Sodium 100 mls @ 200 mls/hr 11/05/20 11:00 11/05/20 12:39 Chloride IV Infused Q12H ROXANNA Infusion Insulin Aspart 5 unit 11/04/20 12:00 11/05/20 13:27 Insulin Aspart 300 Unit/3 Ml Pen SUBQ 5 unit TIDWM ROXANNA Administration Insulin Aspart 1 - 9 unit 11/04/20 17:00 11/05/20 13:27 Insulin Aspart 300 Unit/3 Ml Pen SUBQ 1 unit 0800,1200,1700,2100 ROXANNA Administration Protocol Insulin Glargine 14 unit 11/04/20 21:00 11/04/20 20:23 Insulin Glargine 300 Unit/3 Ml Pen SUBQ 14 unit QPM ROXANNA Administration Levothyroxine Sodium 25 mcg 11/04/20 11:00 11/05/20 07:14 Levothyroxine 25 Mcg Tablet PO 25 mcg QDAC ROXANNA Administration Nortriptyline HCl 25 mg 11/04/20 21:00 11/04/20 20:09 Nortriptyline 25 Mg Capsule PO 25 mg QPM ROXANNA Administration Ondansetron HCl 4 mg 11/04/20 09:15 11/04/20 13:15 Ondansetron 4 Mg/2 Ml Vial IVP 4 mg Q6HR PRN Administration Nausea / Vomiting Sodium Chloride 10 ml 11/04/20 17:00 11/05/20 08:22 Sodium Chloride Flush 0.9% 10 Ml Syringe IVP Not Given 0100,0900,1700 ROXANNA Terazosin HCl 4 mg 11/04/20 21:00 11/04/20 20:10 Terazosin 2 Mg Capsule PO 4 mg QPM ROXANNA Administration Terazosin HCl 1 mg 11/04/20 21:00 11/04/20 20:09 Terazosin 1 Mg Capsule PO 1 mg QPM ROXANNA Administration - Lab Result Fish Bone Diagrams: 11/05/20 05:04 11/05/20 05:04 - Additional Planning My Orders: My Active Orders 11/05/20 10:19 carvediloL [Coreg] 12.5 mg PO DAILY 11/05/20 10:58 Out of bed 3+ hours today [RC] TID Telemetry- [RC] Q4HR 11/05/20 11:00 Ampicillin 1 gm Sodium Chloride 0.9% Minibag [Normal Saline 0.9% Minibag] 100 ml IV Q12H 11/06/20 Evaluate and Treat OT [OT] Routine Evaluate and Treat PT [PT] Routine Subjective - Subjective Patient Reports: No Complaints Nursing Reports: Confused Objective Vital Signs: Vital Signs - 24 hr 11/04/20 11/04/20 11/04/20 16:18 20:30 23:51 Temperature 36.8 C 36.8 C 36.9 C Heart Rate [ 88 Brachial] Heart Rate [ 83 92 Radial] Respiratory 18 18 18 Rate Blood Pressure [Left Brachial artery] Blood Pressure 131/64 H 152/61 H 123/57 L [Right Brachial artery] O2 Saturation 96 96 95 11/05/20 11/05/20 11/05/20 05:28 07:57 10:00 Temperature 37.1 C 36.9 C Heart Rate [ 84 83 Brachial] Heart Rate [ Radial] Respiratory 18 18 Rate Blood Pressure 119/61 115/48 L 100/66 [Left Brachial artery] Blood Pressure [Right Brachial artery] O2 Saturation 96 96 11/05/20 11:58 Temperature 37.0 C Heart Rate [ 77 Brachial] Heart Rate [ Radial] Respiratory 16 Rate Blood Pressure 120/71 [Left Brachial artery] Blood Pressure [Right Brachial artery] O2 Saturation 96 Oxygen O2 Source Room air I&O (Last 24 Hrs): Intake and Output Totals x24h 11/03/20 11/04/20 11/05/20 23:59 23:59 23:59 Intake Total 4117.5 2087.5 Output Total 2625 250 Balance 1492.5 1837.5 General: Alert, Cooperative, No acute distress HEENT: Atraumatic Neck: Supple Lymphatic: no adenopathy Neuro: Alert, Non Focal Cardiovascular: Regular rate, Normal S1 Respiratory: Chest non-tender, No respiratory distress Abdomen: Normal bowel sounds, Soft Extremities: Normal pulses - Results Results: Laboratory Results WBC 14.0 x10^3/uL (4.8-10.8) H 11/05/20 05:04 RBC 2.98 10^6/uL (4.70-6.10) L 11/05/20 05:04 Hgb 8.6 g/dL (14.0-18.0) L 11/05/20 05:04 Hct 27.1 % (42.0-52.0) L 11/05/20 05:04 MCV 90.9 fL (80.0-94.0) 11/05/20 05:04 MCH 28.9 pg (27.0-31.0) 11/05/20 05:04 MCHC 31.7 g/dL (32.0-36.0) L 11/05/20 05:04 RDW 12.3 % (12.0-15.0) 11/05/20 05:04 Plt Count 337 10^3/uL (130-450) 11/05/20 05:04 MPV 8.8 fL (7.4-11.4) 11/05/20 05:04 Neut # (Auto) 10.7 10^3/uL (1.5-6.6) H 11/05/20 05:04 Lymph # (Auto) 1.7 10^3/uL (1.5-3.5) 11/05/20 05:04 [place] # (Auto) 1.3 10^3/uL (0.0-1.0) H 11/05/20 05:04 Eos # (Auto) 0.1 10^3/uL (0.0-0.7) 11/05/20 05:04 Baso # (Auto) 0.0 10^3/uL (0.0-0.1) 11/05/20 05:04 Absolute Nucleated RBC 0.00 x10^3/uL 11/05/20 05:04 Nucleated RBC % 0.0 /100WBC 11/05/20 05:04 VBG pH 7.323 (7.31-7.41) 11/04/20 08:10 VBG pCO2 37.9 mmHg (41-51) L 11/04/20 08:10 VBG pO2 20.4 mmHg (25-47) L 11/04/20 08:10 VBG HCO3 19.2 mmol/L (23-28) L 11/04/20 08:10 VBG Total CO2 20.4 mmol/L (24-29) L 11/04/20 08:10 VBG O2 Saturation 32.9 % (60-80) L 11/04/20 08:10 VBG Base Excess -6.2 mmol/L (-2 - +2) L 11/04/20 08:10 Sodium 139 mmol/L (135-145) 11/05/20 05:04 Potassium 5.4 mmol/L (3.5-5.0) H 11/05/20 05:04 Chloride 108 mmol/L (101-111) 11/05/20 05:04 Carbon Dioxide 20 mmol/L (21-32) L 11/05/20 05:04 Anion Gap 11.0 (6-13) 11/05/20 05:04 BUN 89 mg/dL (6-20) H* 11/05/20 05:04 Creatinine 4.3 mg/dL (0.6-1.2) H 11/05/20 05:04 Estimated GFR (MDRD) 13 (>89) L 11/05/20 05:04 Glucose 184 mg/dL (70-100) H 11/05/20 05:04 Estimat Average Glucose 189 mg/dL (70-100) H 11/05/20 05:04 Hemoglobin A1c % 8.2 % (4.27-6.07) H 11/05/20 05:04 Lactic Acid 0.9 mmol/L (0.5-2.2) 11/04/20 08:10 Calcium 8.6 mg/dL (8.5-10.3) 11/05/20 05:04 Phosphorus 3.7 mg/dL (2.5-4.6) 11/05/20 05:04 Magnesium 2.2 mg/dL (1.7-2.8) 11/05/20 05:04 Total Bilirubin 0.6 mg/dL (0.2-1.0) 11/04/20 08:10 AST 42 IU/L (10-42) 11/04/20 08:10 ALT 25 IU/L (10-60) 11/04/20 08:10 Alkaline Phosphatase 86 IU/L (42-121) 11/04/20 08:10 Troponin I High Sens 10.7 ng/L (2.3-19.7) 11/04/20 08:10 Total Protein 7.8 g/dL (6.7-8.2) 11/04/20 08:10 Albumin 3.2 g/dL (3.2-5.5) 11/04/20 08:10 Globulin 4.6 g/dL (2.1-4.2) H 11/04/20 08:10 Albumin/Globulin Ratio 0.7 (1.0-2.2) L 11/04/20 08:10 Lipase 25 U/L (22-51) 11/04/20 08:10 TSH 1.61 uIU/mL (0.34-5.60) 11/05/20 05:04 Urine Color LIGHT YELLOW 11/04/20 09:20 Urine Clarity CLOUDY (CLEAR) 11/04/20 09:20 Urine pH 6.0 PH (5.0-7.5) 11/04/20 09:20 Ur Specific [place] 1.015 (1.002-1.030) 11/04/20 09:20 Urine Protein 100 mg/dL (NEGATIVE) H 11/04/20 09:20 Urine Glucose (UA) NEGATIVE mg/dL (NEGATIVE) 11/04/20 09:20 Urine Ketones NEGATIVE mg/dL (NEGATIVE) 11/04/20 09:20 Urine Occult Blood SMALL (NEGATIVE) H 11/04/20 09:20 Urine Nitrite NEGATIVE (NEGATIVE) 11/04/20 09:20 Urine Bilirubin NEGATIVE (NEGATIVE) 11/04/20 09:20 Urine Urobilinogen 0.2 (NORMAL) E.U./dL (NORMAL) 11/04/20 09:20 Ur Leukocyte Esterase MODERATE (NEGATIVE) H 11/04/20 09:20 Urine RBC 6-10 /HPF (0-5) H 11/04/20 09:20 Urine WBC >25 /HPF (0-3) H 11/04/20 09:20 Ur Squamous Epith Cells NONE SEEN (<= Few) 11/04/20 09:20 Urine Bacteria Few /HPF (None Seen) 11/04/20 09:20 Ur Microscopic Review INDICATED 11/04/20 09:20 Urine Culture Comments INDICATED 11/04/20 09:20 Nasal Adenovirus (PCR) NOT DETECTED 11/04/20 09:40 Nasal B. parapertussis DNA (PCR) NOT DETECTED 11/04/20 09:40 Nasal Coronavir 229E PCR NOT DETECTED 11/04/20 09:40 Nasal Coronavir HKU1 PCR NOT DETECTED 11/04/20 09:40 Nasal Coronavir NL63 PCR NOT DETECTED 11/04/20 09:40 Nasal Coronavir OC43 PCR NOT DETECTED 11/04/20 09:40 Nasal Enterovir/Rhinovir PCR NOT DETECTED 11/04/20 09:40 Nasal Influenza B PCR NOT DETECTED 11/04/20 09:40 Nasal Influenza A PCR NOT DETECTED 11/04/20 09:40 Nasal Parainfluen 1 PCR NOT DETECTED 11/04/20 09:40 Nasal Parainfluen 2 PCR NOT DETECTED 11/04/20 09:40 Nasal Parainfluen 3 PCR NOT DETECTED 11/04/20 09:40 Nasal Parainfluen 4 PCR NOT DETECTED 11/04/20 09:40 Nasal RSV (PCR) NOT DETECTED 11/04/20 09:40 Nasal B.pertussis DNA PCR NOT DETECTED 11/04/20 09:40 Nasal C.pneumoniae (PCR) NOT DETECTED 11/04/20 09:40 Jesus Human Metapneumo PCR NOT DETECTED 11/04/20 09:40 Nasal M.pneumoniae (PCR) NOT DETECTED 11/04/20 09:40 Nasal SARS-CoV-2 (PCR) NOT DETECTED 11/04/20 09:40 Serum Ketones NEGATIVE (NEGATIVE) 11/04/20 08:10 ABX Reporting Has patient been on IV antibiotics over the past 48 hours?: Yes Current Medications - Current Medications Current Medications: Active Medications Acetaminophen (Acetaminophen 325 Mg Tablet) 650 mg PO Q4HR PRN PRN Reason: Pain 1 to 4 Aspirin (Aspirin Ec 81 Mg Tablet) 81 mg PO DAILY [facility] Last Admin: 11/05/20 08:21 Dose: 81 mg Documented by: Atorvastatin Calcium (Atorvastatin 40 Mg Tablet) 40 mg PO QPM [facility] Last Admin: 11/04/20 20:09 Dose: 40 mg Documented by: Carvedilol (Carvedilol 12.5 Mg Tablet) 12.5 mg PO DAILY [facility] Clotrimazole (Clotrimazole 10 Mg Lozenge) 10 mg MM 5XD [facility] Last Admin: 11/05/20 13:30 Dose: 10 mg Documented by: Lactated Ringer's (Lr) 1,000 mls @ 150 mls/hr IV .Q6H40M [facility] Last Admin: 11/05/20 13:31 Dose: 150 mls/hr Documented by: Ampicillin Sodium 1 gm/ Sodium (Chloride) 100 mls @ 200 mls/hr IV Q12H [facility] Last Infusion: 11/05/20 12:39 Dose: Infused Documented by: Insulin Aspart (Insulin Aspart 300 Unit/3 Ml Pen) 5 unit SUBQ TIDWM [facility] Last Admin: 11/05/20 13:27 Dose: 5 unit Documented by: Insulin Aspart (Insulin Aspart 300 Unit/3 Ml Pen) 1 - 9 unit SUBQ 0800,1200,1700,2100 [facility]; Protocol Last Admin: 11/05/20 13:27 Dose: 1 unit Documented by: Insulin Glargine (Insulin Glargine 300 Unit/3 Ml Pen) 14 unit SUBQ QPM [facility] Last Admin: 11/04/20 20:23 Dose: 14 unit Documented by: Levothyroxine Sodium (Levothyroxine 25 Mcg Tablet) 25 mcg PO QDAC [facility] Last Admin: 11/05/20 07:14 Dose: 25 mcg Documented by: Nortriptyline HCl (Nortriptyline 25 Mg Capsule) 25 mg PO QPM [facility] Last Admin: 11/04/20 20:09 Dose: 25 mg Documented by: Ondansetron HCl (Ondansetron 4 Mg/2 Ml Vial) 4 mg IVP Q6HR PRN PRN Reason: Nausea / Vomiting Last Admin: 11/04/20 13:15 Dose: 4 mg Documented by: Sodium Chloride (Sodium Chloride Flush 0.9% 10 Ml Syringe) 10 ml IVP PRN PRN PRN Reason: NEEDED PER PROVIDER ORDERS Sodium Chloride (Sodium Chloride Flush 0.9% 10 Ml Syringe) 10 ml IVP 0100,0900,1700 [facility] Last Admin: 11/05/20 08:22 Dose: Not Given Documented by: Terazosin HCl (Terazosin 2 Mg Capsule) 4 mg PO QPM [facility] Last Admin: 11/04/20 20:10 Dose: 4 mg Documented by: Terazosin HCl (Terazosin 1 Mg Capsule) 1 mg PO QPM [facility] Last Admin: 11/04/20 20:09 Dose: 1 mg Documented by: [email or web address] [Lisinopril] 40 mg PO DAILY 06/07/14 Amlodipine Besylate 10 mg PO DAILY 11/15/17 Atorvastatin Calcium 40 mg PO QPM 11/15/17 Hydralazine HCl 25 mg PO BID 11/15/17 Levothyroxine [Synthroid] 25 mcg PO .DAILYAC 11/15/17 Nortriptyline [Pamelor] 25 mg PO QPM 11/15/17 Terazosin [Hytrin] 5 mg PO QPM 11/15/17 Docusate Sodium [Dss] 250 mg PO QPM 10/18/19 carvediloL [Coreg] 12.5 mg PO DAILY 09/13/20 Acetaminophen/Diphenhydramine [Acetaminophen-Diphenhyd 500-25] 2 tab PO QPM PRN 09/16/20 Aspirin EC [Ecotrin] 81 mg PO DAILY 09/17/20 Insulin Aspart [NovoLOG] 6 units SUBQ TIDWM 11/04/20 Insulin Glargine [Lantus Solostar] 20 units SUBQ QPM 11/04/20 Torsemide 20 mg PO BID 11/04/20
[2020-11-05 16:15] LABS: FERRITIN 187.9 ng/mL (23.9-336.2)
[2020-11-05 16:22] LABS: ABSOLUTE RETICS # AUTO 0.037 10^6/uL (0.020-0.110); RED BLOOD COUNT 3.2 10^6/uL (4.70-6.10); RETICULOCYTE COUNT % (AUTO) 1.15 % (0.5-2.3)
[2020-11-05 16:32] LABS: % IRON SATURATION 5 % (20-50); IRON 9 ug/dL (45-182); TOTAL IRON BINDING CAPACITY 169 ug/dL (250-450); TRANSFERRIN 121 mg/dL (180-329)
[2020-11-05] MEDS: ATORVASTATIN 40 MG TABLET PO SCH (21:02)
[2020-11-05] MEDS: TERAZOSIN 2 MG CAPSULE PO SCH (21:03)
[2020-11-05] MEDS: NORTRIPTYLINE 25 MG CAPSULE PO SCH (21:03)
[2020-11-05] MEDS: TERAZOSIN 1 MG CAPSULE PO SCH (21:03)
[2020-11-05] MEDS: INSULIN GLARGINE 300 UNIT/3 ML PEN SUBQ SCH (21:03)
[2020-11-06] MEDS: SODIUM CHLORIDE FLUSH 0.9% 10 ML SYRINGE IVP SCH ×3 (04:47→17:16)
[2020-11-06] MEDS: LACTATED RINGERS 1,000 ML IV SCH ×3 (04:47→20:14)
[2020-11-06 04:54] LABS: BASOPHILS % (AUTO) 0.3 %; EOSINOPHILS # (AUTO) 0.4 10^3/uL (0.0-0.7); EOSINOPHILS % (AUTO) 3.3 %; HCT - HEMATOCRIT 27.7 % (42.0-52.0); HGB - HEMOGLOBIN 8.6 g/dL (14.0-18.0); LYMPHOCYTES # (AUTO) 2.3 10^3/uL (1.5-3.5); LYMPHOCYTES % (AUTO) 18.1 %; MEAN CORPUSCULAR HEMOGLOBIN 28.9 pg (27.0-31.0); MEAN PLATELET VOLUME 8.9 fL (7.4-11.4); MONOCYTES # (AUTO) 1.1 10^3/uL (0.0-1.0); MONOCYTES % (AUTO) 8.7 %; NEUTROPHILS # (AUTO) 8.5 10^3/uL (1.5-6.6); NEUTROPHILS % (AUTO) 68.5 %; PLT - PLATELET COUNT 344 10^3/uL (130-450); RED BLOOD COUNT 2.98 10^6/uL (4.70-6.10); RED CELL DISTRIBUTION WIDTH 12.4 % (12.0-15.0); WHITE BLOOD COUNT 12.4 x10^3/uL (4.8-10.8)
[2020-11-06 05:11] LABS: CALCIUM 8.5 mg/dL (8.5-10.3); CREATININE 3.3 mg/dL (0.6-1.2); PHOSPHORUS 3.6 mg/dL (2.5-4.6)
[2020-11-06] MEDS: CLOTRIMAZOLE 10 MG LOZENGE MM SCH ×5 (06:11→22:52)
[2020-11-06] MEDS: LEVOTHYROXINE 25 MCG TABLET PO SCH (07:19)
[2020-11-06] MEDS: ASPIRIN EC 81 MG TABLET PO SCH (08:13)
[2020-11-06] MEDS: carvediloL 12.5 MG TABLET PO SCH (08:13)
[2020-11-06] MEDS: SACCHAROMYCES BOULARDII 250 MG CAPSULE PO SCH ×2 (08:13→17:16)
[2020-11-06] MEDS: INSULIN ASPART 300 UNIT/3 ML PEN SUBQ SCH ×7 (08:22→21:09)
[2020-11-06] MEDS ORDERED: FERROUS GLUCONATE 324 MG TABLET PO SCH (09:00)
[2020-11-06] MEDS ORDERED: ZINC OXIDE 20% OINT 30 GM TUBE TOP PRN (10:30)
[2020-11-06] MEDS: AMPICILLIN 1 GM in SODIUM CHLORIDE 0.9% MINIBAG 100 ML IV SCH ×2 (10:45→22:52)
--- NOTE | 2020-11-06 11:53 | PROVIDER PROGRESS NOTE ---
Assessment/Plan - Problem List (1) Acute on chronic renal failure Qualifiers: Acute renal failure type: unspecified Chronic kidney disease stage: unspecified stage Qualified Code(s): N17.9 - Acute kidney failure, unspecified; N18.9 - Chronic kidney disease, unspecified Assessment/Plan: 11/06 Improved, Creatinine is 3.3 on today. 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 Today patient's creatinine is 4.3 from 5.3 at admission. acute on chronic kidney injury secondary to bladder outlet obstruction. CT Imaging show bladder outlet obstruction, likely secondary to his BPH and had bilateral moderate hydronephrosis. A Evangelista catheter was placed with over 600 mL of urine output. He stated that he does not want dialysis. Avoid nephrotoxins. Hold lisinopril now. continue IV hydration and continue Evangelista catheter and outpatient follow-up with urology (2) Bladder outlet obstruction 11/06, Continue Evangelista catheter, We might take the Evangelista off To see if patient can urinate by self This is likely secondary to enlarged prostate. will continue his home Terazosin. We will keep the Evangelista catheter in place and have him follow-up with urology on outpatient basis (3) Urinary tract infection Conclusion/Plan: 11/06 Improved, WBC is a slightly reduce, UA culture and sensitivity Study show ampicillin sensitivity to Enterococcus. Continue Ampicillin. WBC is slight elevated. But pt has no fever, BP is stable. Urinalysis is suggestive of infection and his urine is quite purulent, and positive enterococcus. Since enterococcus naturally resistance to cephalosporins, will switch to Amp, and followup with UA culture and sensitivity study. (4) Hyperkalemia Conclusion/Plan: 224,Resolved improved. agree it is likely Secondary to acute renal failure. Received sodium bicarbonate and 2 units of IV insulin in the emergency department. continue IVF, and lab monitor, continue monitor on telemetry (5) Insulin dependent type 2 diabetes mellitus Conclusion/Plan: His A1c was 8.2%. We will continue Lantus and NovoLog dosing with slide scale. Carb controlled diet. (6) Dementia Conclusion/Plan: pt has dementia at baseline. In H&P note, His does not believe that he is much more confused than usual. pt still has confusion on today due to his renal failure and acute UTI infection. We will avoid sedatives and treat underlying renal failure, and infection. His is concerned about taking care of him at home given his multiple falls and we will place a social work consult, add PT/OT (7) Chronic heart failure with preserved ejection fraction Conclusion/Plan: agree pt has Not acute in exacerbation at this time. His last echocardiogram from September revealed a preserved ejection fraction. We will hold his home Lasix given the acute kidney injury. We will gently hydrate him. continue vital sign monitor (8) Hypertension Conclusion/Plan: pt is currently normotensive, continue hold his home antihypertensives for the time being and will resume when appropriate. Continue with IV hydration given the acute kidney injury, continue vial sign monitor (9) Anemia in chronic kidney disease Conclusion/Plan: 224, stable, iron studies show patient had iron deficiency, PO iron was given to the patient pt has chronic anemia, his hemoglobin is at his baseline. agree This is likely secondary to his chronic kidney disease. We will monitor for signs of bleeding during this hospitalization, will add anemia study (10) Hypothyroidism Conclusion/Plan: Continue Synthroid, TSH is normal (11) Oral thrush Conclusion/Plan: continue place him on clotrimazole for 5 days. (12)falls pt Had multiple falls in the home, Patient will have PT and OT evaluation to treatment, and fall prevention - Current Meds Current Meds: Current Medications Generic Name Dose Route Start Last Admin Trade Name Tonya PRN Reason Stop Dose Admin Aspirin 81 mg 11/05/20 09:00 11/06/20 08:13 Aspirin Ec 81 Mg Tablet PO 81 mg DAILY ROXANNA Administration Atorvastatin Calcium 40 mg 11/04/20 21:00 11/05/20 21:02 Atorvastatin 40 Mg Tablet PO 40 mg QPM ROXANNA Administration Carvedilol 12.5 mg 11/05/20 10:19 11/06/20 08:13 Carvedilol 12.5 Mg Tablet PO 12.5 mg DAILY ROXANNA Administration Clotrimazole 10 mg 11/04/20 14:00 11/06/20 10:45 Clotrimazole 10 Mg Lozenge MM 10 mg 5XD ROXANNA Administration Ferrous Gluconate 324 mg 11/06/20 09:00 11/06/20 09:24 Ferrous Gluconate 324 Mg Tablet PO 324 mg DAILYWM ROXANNA Administration Lactated Ringer's 1,000 mls @ 150 mls/hr 11/04/20 10:00 11/06/20 10:45 Lr IV 0 mls/hr .Q6H40M ROXANNA Infusion Ampicillin Sodium 1 gm/ Sodium 100 mls @ 200 mls/hr 11/05/20 11:00 11/06/20 11:21 Chloride IV Infused Q12H ROXANNA Infusion Insulin Aspart 5 unit 11/04/20 12:00 11/06/20 08:22 Insulin Aspart 300 Unit/3 Ml Pen SUBQ 5 unit TIDWM ROXANNA Administration Insulin Aspart 1 - 9 unit 11/04/20 17:00 11/06/20 08:22 Insulin Aspart 300 Unit/3 Ml Pen SUBQ 1 unit 0800,1200,1700,2100 ROXANNA Administration Protocol Insulin Glargine 14 unit 11/04/20 21:00 11/05/20 21:03 Insulin Glargine 300 Unit/3 Ml Pen SUBQ 14 unit QPM ROXANNA Administration Levothyroxine Sodium 25 mcg 11/04/20 11:00 11/06/20 07:19 Levothyroxine 25 Mcg Tablet PO 25 mcg QDAC ROXANNA Administration Nortriptyline HCl 25 mg 11/04/20 21:00 11/05/20 21:03 Nortriptyline 25 Mg Capsule PO 25 mg QPM ROXANNA Administration Ondansetron HCl 4 mg 11/04/20 09:15 11/04/20 13:15 Ondansetron 4 Mg/2 Ml Vial IVP 4 mg Q6HR PRN Administration Nausea / Vomiting Saccharomyces Boulardii 250 mg 11/06/20 08:00 11/06/20 08:13 Saccharomyces Boulardii 250 Mg Capsule PO 250 mg BIDWM ROXANNA Administration Sodium Chloride 10 ml 11/04/20 17:00 11/06/20 08:13 Sodium Chloride Flush 0.9% 10 Ml Syringe IVP Not Given 0100,0900,1700 ROXANNA Terazosin HCl 4 mg 11/04/20 21:00 11/05/20 21:03 Terazosin 2 Mg Capsule PO 4 mg QPM ROXANNA Administration Terazosin HCl 1 mg 11/04/20 21:00 11/05/20 21:03 Terazosin 1 Mg Capsule PO 1 mg QPM ROXANNA Administration - Lab Result Fish Bone Diagrams: 11/06/20 04:08 11/06/20 04:08 - Additional Planning My Orders: My Active Orders 11/05/20 10:58 Out of bed 3+ hours today [RC] TID Telemetry- [RC] Q4HR 11/05/20 11:00 Ampicillin 1 gm Sodium Chloride 0.9% Minibag [Normal Saline 0.9% Minibag] 100 ml IV Q12H 11/06/20 Evaluate and Treat OT [OT] Routine Evaluate and Treat PT [PT] Routine 11/06/20 08:00 Saccharomyces Boulardii [Florastor] 250 mg PO BIDWM 11/06/20 09:00 Ferrous Gluconate [Fergon] 324 mg PO DAILYWM 11/06/20 10:30 Zinc Oxide 20% Oint [Zinc Oxide] 1 applic TOP PRN PRN Subjective - Subjective Patient Reports: Feeling Better, No Complaints Objective Vital Signs: Vital Signs - 24 hr 11/05/20 11/05/20 11/05/20 11:58 15:49 20:50 Temperature 37.0 C 36.4 C L 36.6 C Heart Rate [ 77 79 84 Brachial] Respiratory 16 18 16 Rate Blood Pressure 120/71 131/61 H 139/74 H [Left Brachial artery] O2 Saturation 96 100 99 11/06/20 11/06/20 11/06/20 00:00 06:18 08:00 Temperature 36.6 C 36.9 C 36.7 C Heart Rate [ 84 86 87 Brachial] Respiratory 18 18 14 Rate Blood Pressure 127/73 123/77 132/55 H [Left Brachial artery] O2 Saturation 99 100 98 Oxygen O2 Source Room air I&O (Last 24 Hrs): Intake and Output Totals x24h 11/04/20 11/05/20 11/06/20 23:59 23:59 23:59 Intake Total 4117.5 3327.5 2175 Output Total 2625 1750 300 Balance 1492.5 1577.5 1875 General: Alert, Cooperative, No acute distress HEENT: Atraumatic, PERRLA Neck: Supple Lymphatic: no adenopathy Neuro: Alert, Non Focal Cardiovascular: Regular rate, Normal S1, Normal S2 Respiratory: Chest non-tender, No respiratory distress Abdomen: Normal bowel sounds, Soft, No tenderness Extremities: Normal pulses - Results Results: Laboratory Results WBC 12.4 x10^3/uL (4.8-10.8) H 11/06/20 04:08 RBC 2.98 10^6/uL (4.70-6.10) L 11/06/20 04:08 Hgb 8.6 g/dL (14.0-18.0) L 11/06/20 04:08 Hct 27.7 % (42.0-52.0) L 11/06/20 04:08 MCV 93.0 fL (80.0-94.0) 11/06/20 04:08 MCH 28.9 pg (27.0-31.0) 11/06/20 04:08 MCHC 31.0 g/dL (32.0-36.0) L 11/06/20 04:08 RDW 12.4 % (12.0-15.0) 11/06/20 04:08 Plt Count 344 10^3/uL (130-450) 11/06/20 04:08 MPV 8.9 fL (7.4-11.4) 11/06/20 04:08 Reticulocyte % (Auto) 1.15 % (0.5-2.3) 11/05/20 16:14 Neut # (Auto) 8.5 10^3/uL (1.5-6.6) H 11/06/20 04:08 Lymph # (Auto) 2.3 10^3/uL (1.5-3.5) 11/06/20 04:08 Bulloch # (Auto) 1.1 10^3/uL (0.0-1.0) H 11/06/20 04:08 Eos # (Auto) 0.4 10^3/uL (0.0-0.7) 11/06/20 04:08 Baso # (Auto) 0.0 10^3/uL (0.0-0.1) 11/06/20 04:08 Absolute Nucleated RBC 0.00 x10^3/uL 11/06/20 04:08 Nucleated RBC % 0.0 /100WBC 11/06/20 04:08 Absolute Retic 0.037 10^6/uL (0.020-0.110) 11/05/20 16:14 VBG pH 7.323 (7.31-7.41) 11/04/20 08:10 VBG pCO2 37.9 mmHg (41-51) L 11/04/20 08:10 VBG pO2 20.4 mmHg (25-47) L 11/04/20 08:10 VBG HCO3 19.2 mmol/L (23-28) L 11/04/20 08:10 VBG Total CO2 20.4 mmol/L (24-29) L 11/04/20 08:10 VBG O2 Saturation 32.9 % (60-80) L 11/04/20 08:10 VBG Base Excess -6.2 mmol/L (-2 - +2) L 11/04/20 08:10 Sodium 140 mmol/L (135-145) 11/06/20 04:08 Potassium 5.0 mmol/L (3.5-5.0) 11/06/20 04:08 Chloride 110 mmol/L (101-111) 11/06/20 04:08 Carbon Dioxide 20 mmol/L (21-32) L 11/06/20 04:08 Anion Gap 10.0 (6-13) 11/06/20 04:08 BUN 68 mg/dL (6-20) H 11/06/20 04:08 Creatinine 3.3 mg/dL (0.6-1.2) H 11/06/20 04:08 Estimated GFR (MDRD) 18 (>89) L 11/06/20 04:08 Glucose 155 mg/dL (70-100) H 11/06/20 04:08 Estimat Average Glucose 189 mg/dL (70-100) H 11/05/20 05:04 Hemoglobin A1c % 8.2 % (4.27-6.07) H 11/05/20 05:04 Lactic Acid 0.9 mmol/L (0.5-2.2) 11/04/20 08:10 Calcium 8.5 mg/dL (8.5-10.3) 11/06/20 04:08 Phosphorus 3.6 mg/dL (2.5-4.6) 11/06/20 04:08 Magnesium 2.0 mg/dL (1.7-2.8) 11/06/20 04:08 Iron 9 ug/dL (45-182) L 11/05/20 15:35 TIBC 169 ug/dL (250-450) L 11/05/20 15:35 % Saturation 5 % (20-50) L 11/05/20 15:35 Transferrin 121 mg/dL (180-329) L 11/05/20 15:35 Ferritin 187.9 ng/mL (23.9-336.2) 11/05/20 15:35 Total Bilirubin 0.6 mg/dL (0.2-1.0) 11/04/20 08:10 AST 42 IU/L (10-42) 11/04/20 08:10 ALT 25 IU/L (10-60) 11/04/20 08:10 Alkaline Phosphatase 86 IU/L (42-121) 11/04/20 08:10 Lactate Dehydrogenase 151 IU/L (91-225) 11/05/20 15:35 Troponin I High Sens 10.7 ng/L (2.3-19.7) 11/04/20 08:10 Total Protein 7.8 g/dL (6.7-8.2) 11/04/20 08:10 Albumin 3.2 g/dL (3.2-5.5) 11/04/20 08:10 Globulin 4.6 g/dL (2.1-4.2) H 11/04/20 08:10 Albumin/Globulin Ratio 0.7 (1.0-2.2) L 11/04/20 08:10 Lipase 25 U/L (22-51) 11/04/20 08:10 Vitamin B12 659 pg/mL (180-914) 11/05/20 15:35 TSH 1.61 uIU/mL (0.34-5.60) 11/05/20 05:04 Urine Color LIGHT YELLOW 11/04/20 09:20 Urine Clarity CLOUDY (CLEAR) 11/04/20 09:20 Urine pH 6.0 PH (5.0-7.5) 11/04/20 09:20 Ur Specific [place] 1.015 (1.002-1.030) 11/04/20 09:20 Urine Protein 100 mg/dL (NEGATIVE) H 11/04/20 09:20 Urine Glucose (UA) NEGATIVE mg/dL (NEGATIVE) 11/04/20 09:20 Urine Ketones NEGATIVE mg/dL (NEGATIVE) 11/04/20 09:20 Urine Occult Blood SMALL (NEGATIVE) H 11/04/20 09:20 Urine Nitrite NEGATIVE (NEGATIVE) 11/04/20 09:20 Urine Bilirubin NEGATIVE (NEGATIVE) 11/04/20 09:20 Urine Urobilinogen 0.2 (NORMAL) E.U./dL (NORMAL) 11/04/20 09:20 Ur Leukocyte Esterase MODERATE (NEGATIVE) H 11/04/20 09:20 Urine RBC 6-10 /HPF (0-5) H 11/04/20 09:20 Urine WBC >25 /HPF (0-3) H 11/04/20 09:20 Ur Squamous Epith Cells NONE SEEN (<= Few) 11/04/20 09:20 Urine Bacteria Few /HPF (None Seen) 11/04/20 09:20 Ur Microscopic Review INDICATED 11/04/20 09:20 Urine Culture Comments INDICATED 11/04/20 09:20 Nasal Adenovirus (PCR) NOT DETECTED 11/04/20 09:40 Nasal B. parapertussis DNA (PCR) NOT DETECTED 11/04/20 09:40 Nasal Coronavir 229E PCR NOT DETECTED 11/04/20 09:40 Nasal Coronavir HKU1 PCR NOT DETECTED 11/04/20 09:40 Nasal Coronavir NL63 PCR NOT DETECTED 11/04/20 09:40 Nasal Coronavir OC43 PCR NOT DETECTED 11/04/20 09:40 Nasal Enterovir/Rhinovir PCR NOT DETECTED 11/04/20 09:40 Nasal Influenza B PCR NOT DETECTED 11/04/20 09:40 Nasal Influenza A PCR NOT DETECTED 11/04/20 09:40 Nasal Parainfluen 1 PCR NOT DETECTED 11/04/20 09:40 Nasal Parainfluen 2 PCR NOT DETECTED 11/04/20 09:40 Nasal Parainfluen 3 PCR NOT DETECTED 11/04/20 09:40 Nasal Parainfluen 4 PCR NOT DETECTED 11/04/20 09:40 Nasal RSV (PCR) NOT DETECTED 11/04/20 09:40 Nasal B.pertussis DNA PCR NOT DETECTED 11/04/20 09:40 Nasal C.pneumoniae (PCR) NOT DETECTED 11/04/20 09:40 Jesus Human Metapneumo PCR NOT DETECTED 11/04/20 09:40 Nasal M.pneumoniae (PCR) NOT DETECTED 11/04/20 09:40 Nasal SARS-CoV-2 (PCR) NOT DETECTED 11/04/20 09:40 Serum Ketones NEGATIVE (NEGATIVE) 11/04/20 08:10 ABX Reporting Has patient been on IV antibiotics over the past 48 hours?: Yes Current Medications - Current Medications Current Medications: Active Medications Acetaminophen (Acetaminophen 325 Mg Tablet) 650 mg PO Q4HR PRN PRN Reason: Pain 1 to 4 Aspirin (Aspirin Ec 81 Mg Tablet) 81 mg PO DAILY [facility] Last Admin: 11/06/20 08:13 Dose: 81 mg Documented by: Atorvastatin Calcium (Atorvastatin 40 Mg Tablet) 40 mg PO QPM [facility] Last Admin: 11/05/20 21:02 Dose: 40 mg Documented by: Carvedilol (Carvedilol 12.5 Mg Tablet) 12.5 mg PO DAILY [facility] Last Admin: 11/06/20 08:13 Dose: 12.5 mg Documented by: Clotrimazole (Clotrimazole 10 Mg Lozenge) 10 mg MM 5XD [facility] Last Admin: 11/06/20 10:45 Dose: 10 mg Documented by: Ferrous Gluconate (Ferrous Gluconate 324 Mg Tablet) 324 mg PO DAILYWM [facility] Last Admin: 11/06/20 09:24 Dose: 324 mg Documented by: Lactated Ringer's (Lr) 1,000 mls @ 150 mls/hr IV .Q6H40M [facility] Last Infusion: 11/06/20 10:45 Dose: 0 mls/hr Documented by: Ampicillin Sodium 1 gm/ Sodium (Chloride) 100 mls @ 200 mls/hr IV Q12H [facility] Last Infusion: 11/06/20 11:21 Dose: Infused Documented by: Insulin Aspart (Insulin Aspart 300 Unit/3 Ml Pen) 5 unit SUBQ TIDWM [facility] Last Admin: 11/06/20 08:22 Dose: 5 unit Documented by: Insulin Aspart (Insulin Aspart 300 Unit/3 Ml Pen) 1 - 9 unit SUBQ 080 0,1200,1700,2100 [facility]; Protocol Last Admin: 11/06/20 08:22 Dose: 1 unit Documented by: Insulin Glargine (Insulin Glargine 300 Unit/3 Ml Pen) 14 unit SUBQ QPM [facility] Last Admin: 11/05/20 21:03 Dose: 14 unit Documented by: Levothyroxine Sodium (Levothyroxine 25 Mcg Tablet) 25 mcg PO QDAC [facility] Last Admin: 11/06/20 07:19 Dose: 25 mcg Documented by: Multi-Ingredient Ointment (Zinc Oxide 20% Oint 30 Gm Tube) 1 applic TOP PRN PRN PRN Reason: Skin Care Nortriptyline HCl (Nortriptyline 25 Mg Capsule) 25 mg PO QPM [facility] Last Admin: 11/05/20 21:03 Dose: 25 mg Documented by: Ondansetron HCl (Ondansetron 4 Mg/2 Ml Vial) 4 mg IVP Q6HR PRN PRN Reason: Nausea / Vomiting Last Admin: 11/04/20 13:15 Dose: 4 mg Documented by: Saccharomyces Boulardii (Saccharomyces Boulardii 250 Mg Capsule) 250 mg PO BIDWM [facility] Last Admin: 11/06/20 08:13 Dose: 250 mg Documented by: Sodium Chloride (Sodium Chloride Flush 0.9% 10 Ml Syringe) 10 ml IVP PRN PRN PRN Reason: NEEDED PER PROVIDER ORDERS Sodium Chloride (Sodium Chloride Flush 0.9% 10 Ml Syringe) 10 ml IVP 0100,0900,1700 [facility] Last Admin: 11/06/20 08:13 Dose: Not Given Documented by: Terazosin HCl (Terazosin 2 Mg Capsule) 4 mg PO QPM [facility] Last Admin: 11/05/20 21:03 Dose: 4 mg Documented by: Terazosin HCl (Terazosin 1 Mg Capsule) 1 mg PO QPM [facility] Last Admin: 11/05/20 21:03 Dose: 1 mg Documented by: lisinopriL [Lisinopril] 40 mg PO DAILY 06/07/14 Amlodipine Besylate 10 mg PO DAILY 11/15/17 Atorvastatin Calcium 40 mg PO QPM 11/15/17 Hydralazine HCl 25 mg PO BID 11/15/17 Levothyroxine [Synthroid] 25 mcg PO .DAILYAC 11/15/17 Nortriptyline [Pamelor] 25 mg PO QPM 11/15/17 Terazosin [Hytrin] 5 mg PO QPM 11/15/17 Docusate Sodium [Dss] 250 mg PO QPM 10/18/19 carvediloL [Coreg] 12.5 mg PO DAILY 09/13/20 Acetaminophen/Diphenhydramine [Acetaminophen-Diphenhyd 500-25] 2 tab PO QPM PRN 09/16/20 Aspirin EC [Ecotrin] 81 mg PO DAILY 09/17/20 Insulin Aspart [NovoLOG] 6 units SUBQ TIDWM 11/04/20 Insulin Glargine [Lantus Solostar] 20 units SUBQ QPM 02/22/21 Torsemide 20 mg PO BID 11/04/20
[2020-11-06] MEDS: NORTRIPTYLINE 25 MG CAPSULE PO SCH (21:07)
[2020-11-06] MEDS: TERAZOSIN 1 MG CAPSULE PO SCH (21:07)
[2020-11-06] MEDS: INSULIN GLARGINE 300 UNIT/3 ML PEN SUBQ SCH (21:08)
[2020-11-06] MEDS: ATORVASTATIN 40 MG TABLET PO SCH (21:08)
[2020-11-06] MEDS: TERAZOSIN 2 MG CAPSULE PO SCH (21:09)
[2020-11-07] MEDS: SODIUM CHLORIDE FLUSH 0.9% 10 ML SYRINGE IVP SCH ×3 (01:29→17:12)
[2020-11-07] MEDS: LACTATED RINGERS 1,000 ML IV SCH ×3 (04:08→19:55)
[2020-11-07 04:45] LABS: BASOPHILS % (AUTO) 0.4 %; EOSINOPHILS # (AUTO) 0.4 10^3/uL (0.0-0.7); EOSINOPHILS % (AUTO) 3.2 %; HCT - HEMATOCRIT 23.9 % (42.0-52.0); HGB - HEMOGLOBIN 7.3 g/dL (14.0-18.0); LYMPHOCYTES # (AUTO) 2.5 10^3/uL (1.5-3.5); LYMPHOCYTES % (AUTO) 21.9 %; MEAN CORPUSCULAR HEMOGLOBIN 28.3 pg (27.0-31.0); MEAN CORPUSCULAR HGB CONC 30.5 g/dL (32.0-36.0); MEAN CORPUSCULAR VOLUME 92.6 fL (80.0-94.0); MEAN PLATELET VOLUME 9.1 fL (7.4-11.4); MONOCYTES # (AUTO) 0.9 10^3/uL (0.0-1.0); MONOCYTES % (AUTO) 8.1 %; NEUTROPHILS # (AUTO) 7.3 10^3/uL (1.5-6.6); PLT - PLATELET COUNT 318 10^3/uL (130-450); RED BLOOD COUNT 2.58 10^6/uL (4.70-6.10); RED CELL DISTRIBUTION WIDTH 12.2 % (12.0-15.0); WHITE BLOOD COUNT 11.2 x10^3/uL (4.8-10.8)
[2020-11-07 04:57] LABS: CALCIUM 7.9 mg/dL (8.5-10.3); CREATININE 2.8 mg/dL (0.6-1.2); MAGNESIUM 1.7 mg/dL (1.7-2.8); PHOSPHORUS 3.3 mg/dL (2.5-4.6); POTASSIUM 4.9 mmol/L (3.5-5.0)
[2020-11-07] MEDS: CLOTRIMAZOLE 10 MG LOZENGE MM SCH ×5 (05:54→21:45)
[2020-11-07] MEDS: LEVOTHYROXINE 25 MCG TABLET PO SCH (07:19)
[2020-11-07] MEDS: INSULIN ASPART 300 UNIT/3 ML PEN SUBQ SCH ×7 (08:25→21:47)
[2020-11-07] MEDS: carvediloL 12.5 MG TABLET PO SCH (08:42)
[2020-11-07] MEDS: FERROUS GLUCONATE 324 MG TABLET PO SCH ×2 (08:42→21:39)
[2020-11-07] MEDS: ASPIRIN EC 81 MG TABLET PO SCH (08:42)
[2020-11-07] MEDS: SACCHAROMYCES BOULARDII 250 MG CAPSULE PO SCH ×2 (08:42→17:12)
--- NOTE | 2020-11-07 11:27 | PROVIDER PROGRESS NOTE ---
Assessment/Plan - Problem List (1) Acute on chronic renal failure Qualifiers: Acute renal failure type: unspecified Chronic kidney disease stage: unspecified stage Qualified Code(s): N17.9 - Acute kidney failure, unspecified; N18.9 - Chronic kidney disease, unspecified Assessment/Plan: 11/07 improved. creatinine is 2.8 today, and urine is much more slighted color and clear. reduced IVF to 125cc/h and watch closely pt's O2 sats for prevention of Fluid overload, continue lab monitor. pt's baseline creatinine is around 2.1 11/06 Improved, Creatinine is 3.3 on today. 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 Today patient's creatinine is 4.3 from 5.3 at admission. acute on chronic kidney injury secondary to bladder outlet obstruction. CT Imaging show bladder outlet obstruction, likely secondary to his BPH and had bilateral moderate hydronephrosis. A Evangelista catheter was placed with over 600 mL of urine output. He stated that he does not want dialysis. Avoid nephrotoxins. Hold lisinopril now. continue IV hydration and continue Evangelista catheter and outpatient follow-up with urology (2) Bladder outlet obstruction 11/07, we will try once to take of Evangelista to see if pt can urinate by his self. continue Terazosin 11/06, Continue Evangelista catheter, We might take the Evangelista off To see if patient can urinate by self This is likely secondary to enlarged prostate. will continue his home Terazosin. We will keep the Evangelista catheter in place and have him follow-up with urology on outpatient basis (3) Urinary tract infection Conclusion/Plan: 11/07 WBC is 11.2, continue IV Ampicillin today per UA culture study, will likely switch to PO antibiotics on tomorrow. 11/06 Improved, WBC is a slightly reduce, UA culture and sensitivity Study show ampicillin sensitivity to Enterococcus. Continue Ampicillin. WBC is slight elevated. But pt has no fever, BP is stable. Urinalysis is suggestive of infection and his urine is quite purulent, and positive enterococcus. Since enterococcus naturally resistance to cephalosporins, will s witch to Amp, and followup with UA culture and sensitivity study. (4) Hyperkalemia Conclusion/Plan: 224,Resolved improved. agree it is likely Secondary to acute renal failure. Received sodium bicarbonate and 2 units of IV insulin in the emergency department. continue IVF, and lab monitor, continue monitor on telemetry (5) Insulin dependent type 2 diabetes mellitus Conclusion/Plan: His A1c was 8.2%. We will continue Lantus and NovoLog dosing with slide scale. Carb controlled diet. (6) Dementia Conclusion/Plan: pt has dementia at baseline. In H&P note, His does not believe that he is much more confused than usual. pt still has confusion on today due to his renal failure and acute UTI infection. We will avoid sedatives and treat underlying renal failure, and infection. His is concerned about taking care of him at home given his multiple falls and we will place a social work consult, add PT/OT (7) Chronic heart failure with preserved ejection fraction Conclusion/Plan: agree pt has Not acute in exacerbation at this time. His last echocardiogram from September revealed a preserved ejection fraction. We will hold his home Lasix given the acute kidney injury. We will gently hydrate him. continue vital sign monitor (8) Hypertension Conclusion/Plan: pt is currently normotensive, continue hold his home antihypertensives for the time being and will resume when appropriate. Continue with IV hydration given the acute kidney injury, continue vial sign monitor (9) Anemia in chronic kidney disease Conclusion/Plan: 11/07 HGB is 7.3 today but pt is Asymptomatic for anemia. pt has hx of CKD, pt was found to have Iron deficiency, Continue replace of iron and lab monitor 224, stable, iron studies show patient had iron deficiency, PO iron was given to the patient pt has chronic anemia, his hemoglobin is at his baseline. agree This is likely secondary to his chronic kidney disease. We will monitor for signs of bleeding during this hospitalization, will add anemia study (10) Hypothyroidism Conclusion/Plan: Continue Synthroid, TSH is normal (11) Oral thrush Conclusion/Plan: continue place him on clotrimazole for 5 days. (12)falls 11/07 PT and OT evaluated and treated patient, recommended to discharge to SNF for strength and fall prevention, Consult with social work For safety disposition pt Had multiple falls in the home, Patient will have PT and OT evaluation to treatment, and fall prevention - Current Meds Current Meds: Current Medications Generic Name Dose Route Start Last Admin Trade Name Freq PRN Reason Stop Dose Admin Aspirin 81 mg 11/05/20 09:00 11/07/20 08:42 Aspirin Ec 81 Mg Tablet PO 81 mg DAILY ROXANNA Administration Atorvastatin Calcium 40 mg 11/04/20 21:00 11/06/20 21:08 Atorvastatin 40 Mg Tablet PO 40 mg QPM ROXANNA Administration Carvedilol 12.5 mg 11/05/20 10:19 11/07/20 08:42 Carvedilol 12.5 Mg Tablet PO 12.5 mg DAILY ROXANNA Administration Clotrimazole 10 mg 11/04/20 14:00 11/07/20 05:54 Clotrimazole 10 Mg Lozenge MM 10 mg 5XD ROXANNA Administration Ferrous Gluconate 324 mg 11/07/20 09:00 11/07/20 08:42 Ferrous Gluconate 324 Mg Tablet PO 324 mg BID COUNT INCLUDES THE [facility] Administration Ampicillin Sodium 1 gm/ Sodium 100 mls @ 200 mls/hr 11/05/20 11:00 11/07/20 01:34 Chloride IV Infused Q12H ROXANNA Infusion Insulin Aspart 5 unit 11/04/20 12:00 11/07/20 08:25 Insulin Aspart 300 Unit/3 Ml Pen SUBQ 5 unit TIDWM COUNT INCLUDES THE [facility] Administration Insulin Aspart 1 - 9 unit 11/04/20 17:00 11/07/20 08:25 Insulin Aspart 300 Unit/3 Ml Pen SUBQ 3 unit 0800,1200,1700,2100 COUNT INCLUDES THE [facility] Administration Protocol Insulin Glargine 14 unit 11/04/20 21:00 11/06/20 21:08 Insulin Glargine 300 Unit/3 Ml Pen SUBQ 14 unit QPM ROXANNA Administration Levothyroxine Sodium 25 mcg 11/04/20 11:00 11/07/20 07:19 Levothyroxine 25 Mcg Tablet PO 25 mcg QDAC ROXANNA Administration Nortriptyline HCl 25 mg 11/04/20 21:00 11/06/20 21:07 Nortriptyline 25 Mg Capsule PO 25 mg QPM ROXANNA Administration Ondansetron HCl 4 mg 11/04/20 09:15 11/04/20 13:15 Ondansetron 4 Mg/2 Ml Vial IVP 4 mg Q6HR PRN Administration Nausea / Vomiting Saccharomyces Boulardii 250 mg 11/06/20 08:00 11/07/20 08:42 Saccharomyces Boulardii 250 Mg Capsule PO 250 mg BIDWM ROXANNA Administration Sodium Chloride 10 ml 11/04/20 17:00 11/07/20 08:43 Sodium Chloride Flush 0.9% 10 Ml Syringe IVP 10 ml 0100,0900,1700 ROXANNA Administration Terazosin HCl 4 mg 11/04/20 21:00 11/06/20 21:09 Terazosin 2 Mg Capsule PO 4 mg QPM ROXANNA Administration Terazosin HCl 1 mg 11/04/20 21:00 11/06/20 21:07 Terazosin 1 Mg Capsule PO 1 mg QPM ROXANNA Administration - Lab Result Fish Bone Diagrams: 11/07/20 03:55 11/07/20 03:55 - Additional Planning My Orders: My Active Orders 11/06/20 10:30 Zinc Oxide 20% Oint [Zinc Oxide] 1 applic TOP PRN PRN 11/07/20 OCCULT BLOOD IN PAT. SINGLE [RAPID] Urgent 11/07/20 09:00 Ferrous Gluconate [Fergon] 324 mg PO BID 11/07/20 09:08 Lactated Ringers [Lr] 1,000 ml IV 125 mls/hr 11/07/20 11:21 Evangelista Discontinuation [RC] ONCE Subjective - Subjective Patient Reports: Feeling Better, No Complaints Objective Vital Signs: Vital Signs - 24 hr 11/06/20 11/06/20 11/06/20 11:30 11:35 13:41 Temperature 36.5 C Heart Rate [ 71 Brachial] Heart Rate [ 83 83 Sitting] Heart Rate [ 80 80 Supine] Respiratory 17 Rate Blood Pressure 128/56 L [Left Brachial artery] Blood Pressure [Right Brachial artery] Blood Pressure 127/59 L 127/59 L [Sitting] Blood Pressure 125/55 L 125/55 L [Supine] O2 Saturation 99 11/06/20 11/06/20 11/07/20 16:04 20:12 00:02 Temperature 36.6 C 36.8 C 36.7 C Heart Rate [ 78 77 79 Brachial] Heart Rate [ Sitting] Heart Rate [ Supine] Respiratory 16 18 18 Rate Blood Pressure 109/72 115/57 L [Left Brachial artery] Blood Pressure 120/57 L [Right Brachial artery] Blood Pressure [Sitting] Blood Pressure [Supine] O2 Saturation 97 97 96 11/07/20 07:45 Temperature 37.0 C Heart Rate [ 75 Brachial] Heart Rate [ Sitting] Heart Rate [ Supine] Respiratory 17 Rate Blood Pressure [Left Brachial artery] Blood Pressure 120/57 L [Right Brachial artery] Blood Pressure [Sitting] Blood Pressure [Supine] O2 Saturation 94 Oxygen O2 Source Room air I&O (Last 24 Hrs): Intake and Output Totals x24h 11/05/20 11/06/20 11/07/20 23:59 23:59 23:59 Intake Total 3327.5 3782.5 2335 Output Total 1750 3200 850 Balance 1577.5 582.5 1485 General: Alert, Cooperative, No acute distress HEENT: Atraumatic, PERRLA Neck: Supple Lymphatic: no adenopathy Neuro: Alert, Non Focal Cardiovascular: Regular rate, Normal S1, Normal S2 Respiratory: Chest non-tender, No respiratory distress Abdomen: Normal bowel sounds, Soft, No tenderness Extremities: Normal pulses - Results Results: Laboratory Results WBC 11.2 x10^3/uL (4.8-10.8) H 11/07/20 03:55 RBC 2.58 10^6/uL (4.70-6.10) L 11/07/20 03:55 Hgb 7.3 g/dL (14.0-18.0) L 11/07/20 03:55 Hct 23.9 % (42.0-52.0) L 11/07/20 03:55 MCV 92.6 fL (80.0-94.0) 11/07/20 03:55 MCH 28.3 pg (27.0-31.0) 11/07/20 03:55 MCHC 30.5 g/dL (32.0-36.0) L 11/07/20 03:55 RDW 12.2 % (12.0-15.0) 11/07/20 03:55 Plt Count 318 10^3/uL (130-450) 11/07/20 03:55 MPV 9.1 fL (7.4-11.4) 11/07/20 03:55 Reticulocyte % (Auto) 1.15 % (0.5-2.3) 11/05/20 16:14 Neut # (Auto) 7.3 10^3/uL (1.5-6.6) H 11/07/20 03:55 Lymph # (Auto) 2.5 10^3/uL (1.5-3.5) 11/07/20 03:55 Mclennan # (Auto) 0.9 10^3/uL (0.0-1.0) 11/07/20 03:55 Eos # (Auto) 0.4 10^3/uL (0.0-0.7) 11/07/20 03:55 Baso # (Auto) 0.0 10^3/uL (0.0-0.1) 11/07/20 03:55 Absolute Nucleated RBC 0.00 x10^3/uL 11/07/20 03:55 Nucleated RBC % 0.0 /100WBC 11/07/20 03:55 Absolute Retic 0.037 10^6/uL (0.020-0.110) 11/05/20 16:14 VBG pH 7.323 (7.31-7.41) 11/04/20 08:10 VBG pCO2 37.9 mmHg (41-51) L 11/04/20 08:10 VBG pO2 20.4 mmHg (25-47) L 11/04/20 08:10 VBG HCO3 19.2 mmol/L (23-28) L 11/04/20 08:10 VBG Total CO2 20.4 mmol/L (24-29) L 11/04/20 08:10 VBG O2 Saturation 32.9 % (60-80) L 11/04/20 08:10 VBG Base Excess -6.2 mmol/L (-2 - +2) L 11/04/20 08:10 Sodium 142 mmol/L (135-145) 11/07/20 03:55 Potassium 4.9 mmol/L (3.5-5.0) 11/07/20 03:55 Chloride 112 mmol/L (101-111) H 11/07/20 03:55 Carbon Dioxide 21 mmol/L (21-32) 11/07/20 03:55 Anion Gap 9.0 (6-13) 11/07/20 03:55 BUN 55 mg/dL (6-20) H 11/07/20 03:55 Creatinine 2.8 mg/dL (0.6-1.2) H 11/07/20 03:55 Estimated GFR (MDRD) 22 (>89) L 11/07/20 03:55 Glucose 223 mg/dL (70-100) H 11/07/20 03:55 POC Whole Bld Glucose 186 mg/dL (70 - 100) H 11/07/20 07:47 Estimat Average Glucose 189 mg/dL (70-100) H 11/05/20 05:04 Hemoglobin A1c % 8.2 % (4.27-6.07) H 11/05/20 05:04 Lactic Acid 0.9 mmol/L (0.5-2.2) 11/04/20 08:10 Calcium 7.9 mg/dL (8.5-10.3) L 11/07/20 03:55 Phosphorus 3.3 mg/dL (2.5-4.6) 11/07/20 03:55 Magnesium 1.7 mg/dL (1.7-2.8) 11/07/20 03:55 Iron 9 ug/dL (45-182) L 11/05/20 15:35 TIBC 169 ug/dL (250-450) L 11/05/20 15:35 % Saturation 5 % (20-50) L 11/05/20 15:35 Transferrin 121 mg/dL (180-329) L 11/05/20 15:35 Ferritin 187.9 ng/mL (23.9-336.2) 11/05/20 15:35 Total Bilirubin 0.6 mg/dL (0.2-1.0) 11/04/20 08:10 AST 42 IU/L (10-42) 11/04/20 08:10 ALT 25 IU/L (10-60) 11/04/20 08:10 Alkaline Phosphatase 86 IU/L (42-121) 11/04/20 08:10 Lactate Dehydrogenase 151 IU/L (91-225) 11/05/20 15:35 Troponin I High Sens 10.7 ng/L (2.3-19.7) 11/04/20 08:10 Total Protein 7.8 g/dL (6.7-8.2) 11/04/20 08:10 Albumin 3.2 g/dL (3.2-5.5) 11/04/20 08:10 Globulin 4.6 g/dL (2.1-4.2) H 11/04/20 08:10 Albumin/Globulin Ratio 0.7 (1.0-2.2) L 11/04/20 08:10 Lipase 25 U/L (22-51) 11/04/20 08:10 Vitamin B12 659 pg/mL (180-914) 11/05/20 15:35 TSH 1.61 uIU/mL (0.34-5.60) 11/05/20 05:04 Urine Color LIGHT YELLOW 11/04/20 09:20 Urine Clarity CLOUDY (CLEAR) 11/04/20 09:20 Urine pH 6.0 PH (5.0-7.5) 11/04/20 09:20 Ur Specific [place] 1.015 (1.002-1.030) 11/04/20 09:20 Urine Protein 100 mg/dL (NEGATIVE) H 11/04/20 09:20 Urine Glucose (UA) NEGATIVE mg/dL (NEGATIVE) 11/04/20 09:20 Urine Ketones NEGATIVE mg/dL (NEGATIVE) 11/04/20 09:20 Urine Occult Blood SMALL (NEGATIVE) H 11/04/20 09:20 Urine Nitrite NEGATIVE (NEGATIVE) 11/04/20 09:20 Urine Bilirubin NEGATIVE (NEGATIVE) 11/04/20 09:20 Urine Urobilinogen 0.2 (NORMAL) E.U./dL (NORMAL) 11/04/20 09:20 Ur Leukocyte Esterase MODERATE (NEGATIVE) H 11/04/20 09:20 Urine RBC 6-10 /HPF (0-5) H 11/04/20 09:20 Urine WBC >25 /HPF (0-3) H 11/04/20 09:20 Ur Squamous Epith Cells NONE SEEN (<= Few) 11/04/20 09:20 Urine Bacteria Few /HPF (None Seen) 11/04/20 09:20 Ur Microscopic Review INDICATED 11/04/20 09:20 Urine Culture Comments INDICATED 11/04/20 09:20 Nasal Adenovirus (PCR) NOT DETECTED 11/04/20 09:40 Nasal B. parapertussis DNA (PCR) NOT DETECTED 11/04/20 09:40 Nasal Coronavir 229E PCR NOT DETECTED 11/04/20 09:40 Nasal Coronavir HKU1 PCR NOT DETECTED 11/04/20 09:40 Nasal Coronavir NL63 PCR NOT DETECTED 11/04/20 09:40 Nasal Coronavir OC43 PCR NOT DETECTED 11/04/20 09:40 Nasal Enterovir/Rhinovir PCR NOT DETECTED 11/04/20 09:40 Nasal Influenza B PCR NOT DETECTED 11/04/20 09:40 Nasal Influenza A PCR NOT DETECTED 11/04/20 09:40 Nasal Parainfluen 1 PCR NOT DETECTED 11/04/20 09:40 Nasal Parainfluen 2 PCR NOT DETECTED 11/04/20 09:40 Nasal Parainfluen 3 PCR NOT DETECTED 11/04/20 09:40 Nasal Parainfluen 4 PCR NOT DETECTED 11/04/20 09:40 Nasal RSV (PCR) NOT DETECTED 11/04/20 09:40 Nasal B.pertussis DNA PCR NOT DETECTED 11/04/20 09:40 Nasal C.pneumoniae (PCR) NOT DETECTED 11/04/20 09:40 Jesus Human Metapneumo PCR NOT DETECTED 11/04/20 09:40 Nasal M.pneumoniae (PCR) NOT DETECTED 11/04/20 09:40 Nasal SARS-CoV-2 (PCR) NOT DETECTED 11/04/20 09:40 Serum Ketones NEGATIVE (NEGATIVE) 11/04/20 08:10 ABX Reporting Has patient been on IV antibiotics over the past 48 hours?: Yes Current Medications - Current Medications Current Medications: Active Medications Acetaminophen (Acetaminophen 325 Mg Tablet) 650 mg PO Q4HR PRN PRN Reason: Pain 1 to 4 Aspirin (Aspirin Ec 81 Mg Tablet) 81 mg PO DAILY COUNT INCLUDES THE [facility] Last Admin: 11/07/20 08:42 Dose: 81 mg Documented by: Atorvastatin Calcium (Atorvastatin 40 Mg Tablet) 40 mg PO QPM COUNT INCLUDES THE [facility] Last Admin: 11/06/20 21:08 Dose: 40 mg Documented by: Carvedilol (Carvedilol 12.5 Mg Tablet) 12.5 mg PO DAILY COUNT INCLUDES THE [facility] Last Admin: 11/07/20 08:42 Dose: 12.5 mg Documented by: Clotrimazole (Clotrimazole 10 Mg Lozenge) 10 mg MM 5XD COUNT INCLUDES THE [facility] Last Admin: 11/07/20 05:54 Dose: 10 mg Documented by: Ferrous Gluconate (Ferrous Gluconate 324 Mg Tablet) 324 mg PO BID COUNT INCLUDES THE [facility] Last Admin: 11/07/20 08:42 Dose: 324 mg Documented by: Ampicillin Sodium 1 gm/ Sodium (Chloride) 100 mls @ 200 mls/hr IV Q12H COUNT INCLUDES THE [facility] Last Infusion: 11/07/20 01:34 Dose: Infused Documented by: Lactated Ringer's (Lr) 1,000 mls @ 125 mls/hr IV .Q8H COUNT INCLUDES THE [facility] Insulin Aspart (Insulin Aspart 300 Unit/3 Ml Pen) 5 unit SUBQ TIDWM COUNT INCLUDES THE [facility] Last Admin: 11/07/20 08:25 Dose: 5 unit Documented by: Insulin Aspart (Insulin Aspart 300 Unit/3 Ml Pen) 1 - 9 unit SUBQ 0800,1200,1700,2100 COUNT INCLUDES THE [facility]; Protocol Last Admin: 11/07/20 08:25 Dose: 3 unit Documented by: Insulin Glargine (Insulin Glargine 300 Unit/3 Ml Pen) 14 unit SUBQ QPM COUNT INCLUDES THE [facility] Last Admin: 11/06/20 21:08 Dose: 14 unit Documented by: Levothyroxine Sodium (Levothyroxine 25 Mcg Tablet) 25 mcg PO QDAC COUNT INCLUDES THE [facility] Last Admin: 11/07/20 07:19 Dose: 25 mcg Documented by: Multi-Ingredient Ointment (Zinc Oxide 20% Oint 30 Gm Tube) 1 applic TOP PRN PRN PRN Reason: Skin Care Nortriptyline HCl (Nortriptyline 25 Mg Capsule) 25 mg PO QPM COUNT INCLUDES THE [facility] Last Admin: 11/06/20 21:07 Dose: 25 mg Documented by: Ondansetron HCl (Ondansetron 4 Mg/2 Ml Vial) 4 mg IVP Q6HR PRN PRN Reason: Nausea / Vomiting Last Admin: 11/04/20 13:15 Dose: 4 mg Documented by: Saccharomyces Boulardii (Saccharomyces Boulardii 250 Mg Capsule) 250 mg PO BIDWM COUNT INCLUDES THE [facility] Last Admin: 11/07/20 08:42 Dose: 250 mg Documented by: Sodium Chloride (Sodium Chloride Flush 0.9% 10 Ml Syringe) 10 ml IVP PRN PRN PRN Reason: NEEDED PER PROVIDER ORDERS Sodium Chloride (Sodium Chloride Flush 0.9% 10 Ml Syringe) 10 ml IVP 0100,0900,1700 COUNT INCLUDES THE [facility] Last Admin: 11/07/20 08:43 Dose: 10 ml Documented by: Terazosin HCl (Terazosin 2 Mg Capsule) 4 mg PO QPM COUNT INCLUDES THE [facility] Last Admin: 11/06/20 21:09 Dose: 4 mg Documented by: Terazosin HCl (Terazosin 1 Mg Capsule) 1 mg PO QPM COUNT INCLUDES THE [facility] Last Admin: 11/06/20 21:07 Dose: 1 mg Documented by: [email or web address] [Lisinopril] 40 mg PO DAILY 06/07/14 Amlodipine Besylate 10 mg PO DAILY 11/15/17 Atorvastatin Calcium 40 mg PO QPM 11/15/17 Hydralazine HCl 25 mg PO BID 11/15/17 Levothyroxine [Synthroid] 25 mcg PO .DAILYAC 11/15/17 Nortriptyline [Pamelor] 25 mg PO QPM 11/15/17 Terazosin [Hytrin] 5 mg PO QPM 11/15/17 Docusate Sodium [Dss] 250 mg PO QPM 10/18/19 carvediloL [Coreg] 12.5 mg PO DAILY 09/13/20 Acetaminophen/Diphenhydramine [Acetaminophen-Diphenhyd 500-25] 2 tab PO QPM PRN 09/16/20 Aspirin EC [Ecotrin] 81 mg PO DAILY 09/17/20 Insulin Aspart [NovoLOG] 6 units SUBQ TIDWM 11/04/20 Insulin Glargine [Lantus Solostar] 20 units SUBQ QPM 11/04/20 Torsemide 20 mg PO BID 11/04/20
[2020-11-07] MEDS: AMPICILLIN 1 GM in SODIUM CHLORIDE 0.9% MINIBAG 100 ML IV SCH ×2 (11:36→23:08)
[2020-11-07 17:07] LABS: FECAL OCCULT BLOOD (FIT) NEGATIVE (NEGATIVE)
[2020-11-07] MEDS: NORTRIPTYLINE 25 MG CAPSULE PO SCH (21:39)
[2020-11-07] MEDS: TERAZOSIN 2 MG CAPSULE PO SCH (21:39)
[2020-11-07] MEDS: TERAZOSIN 1 MG CAPSULE PO SCH (21:39)
[2020-11-07] MEDS: ATORVASTATIN 40 MG TABLET PO SCH (21:39)
[2020-11-07] MEDS: INSULIN GLARGINE 300 UNIT/3 ML PEN SUBQ SCH (21:47)
[2020-11-08] MEDS: SODIUM CHLORIDE FLUSH 0.9% 10 ML SYRINGE IVP SCH ×3 (00:31→17:17)
[2020-11-08] MEDS: LACTATED RINGERS 1,000 ML IV SCH ×2 (04:13→08:47)
[2020-11-08 05:14] LABS: BASOPHILS % (AUTO) 0.2 %; EOSINOPHILS # (AUTO) 0.5 10^3/uL (0.0-0.7); EOSINOPHILS % (AUTO) 4.9 %; HGB - HEMOGLOBIN 7.3 g/dL (14.0-18.0); LYMPHOCYTES # (AUTO) 2.6 10^3/uL (1.5-3.5); MEAN CORPUSCULAR HEMOGLOBIN 28.1 pg (27.0-31.0); MEAN CORPUSCULAR HGB CONC 30.4 g/dL (32.0-36.0); MEAN CORPUSCULAR VOLUME 92.3 fL (80.0-94.0); MEAN PLATELET VOLUME 9.1 fL (7.4-11.4); MONOCYTES # (AUTO) 0.7 10^3/uL (0.0-1.0); MONOCYTES % (AUTO) 7.3 %; NEUTROPHILS # (AUTO) 6.1 10^3/uL (1.5-6.6); NEUTROPHILS % (AUTO) 60.2 %; PLT - PLATELET COUNT 338 10^3/uL (130-450); RED CELL DISTRIBUTION WIDTH 12.1 % (12.0-15.0); WHITE BLOOD COUNT 10.1 x10^3/uL (4.8-10.8)
[2020-11-08 05:26] LABS: CALCIUM 7.9 mg/dL (8.5-10.3); CREATININE 2.2 mg/dL (0.6-1.2); MAGNESIUM 1.5 mg/dL (1.7-2.8); POTASSIUM 4.2 mmol/L (3.5-5.0)
[2020-11-08] MEDS: CLOTRIMAZOLE 10 MG LOZENGE MM SCH ×5 (05:32→21:49)
[2020-11-08] MEDS: SACCHAROMYCES BOULARDII 250 MG CAPSULE PO SCH ×2 (08:40→17:22)
[2020-11-08] MEDS: LEVOTHYROXINE 25 MCG TABLET PO SCH (08:41)
[2020-11-08] MEDS: FERROUS GLUCONATE 324 MG TABLET PO SCH ×2 (08:41→21:33)
[2020-11-08] MEDS: ASPIRIN EC 81 MG TABLET PO SCH (08:42)
[2020-11-08] MEDS: carvediloL 12.5 MG TABLET PO SCH (08:42)
[2020-11-08] MEDS: INSULIN ASPART 300 UNIT/3 ML PEN SUBQ SCH ×7 (08:44→21:52)
[2020-11-08] MEDS ORDERED: MAGNESIUM SULFATE 2 GRAM 2 GM/50 ML BAG IV ONE (11:21)
--- NOTE | 2020-11-08 11:27 | PROVIDER PROGRESS NOTE ---
Assessment/Plan - Problem List (1) Acute on chronic renal failure Qualifiers: Acute renal failure type: unspecified Chronic kidney disease stage: unspecified stage Qualified Code(s): N17.9 - Acute kidney failure, unspecified; N18.9 - Chronic kidney disease, unspecified Assessment/Plan: Creat is nearly at baseline of 2.1, but this is with iv fluids still infusing at 125 cc/hr. Will decrease iv rate, since he is nearly at baseline creat, follow BMP daily to see if creat continued to improve by tomorrow. Pt notv ready for DCh today, possibly tomorrow. (2) Bladder outlet obstruction Assessment/Plan: This Dx is likely the cause of the KALEY creatinine of 5.[address] Imaging show bladder outlet obstruction, likely secondary to his BPH and he had bilateral moderate hydronephrosis. A Evangelista catheter was placed with over 600 mL of urine output at admission. He stated that he does not want dialysis. Yesterday they took out the Evangelista to see if pt can urinate by himself and continued Terazosin. But he again had urinary retention, but again a Evangelista was re-inserted yesterday at 1530. Avoid nephrotoxins. Holding lisinopril still. He was told he will be [facility] with a Evangelista in place. He will need outpatient management with Urology (3) Enterococcus Urinary tract infection Per sensitivities, we are continuing Ampicillin and will switch to PO antibiotics now, since the WBC is improving. He never had a fever. (4) Hypomagnesemia Will replace w/ iv Mg Follow Mg daily (5) Insulin dependent type 2 diabetes mellitus His A1c was 8.2%. We will continue Lantus and NovoLog dosing with slide scale. Carb controlled diet. (6) Dementia pt has dementia at baseline. We will avoid sedatives and treat underlying renal failure, and infection. His is concerned about taking care of him at home given his multiple falls and discharge is planned to SNF for PT/OT. He was accepted at [facility], where he will be D[facility] to possibly tomorrow. (7) Chronic heart failure with preserved ejection fraction Not acute in exacerbation at this time. His last echocardiogram from September revealed a preserved ejection fraction. We have been holding his home Lasix given the acute kidney injury and gently hydrating him. (8) Hypertension He is currently normotensive, depite continuing to hold some of his home antihypertensives. We will resume when appropriate. Continue with IV hydration given the acute kidney injury, continue vial sign monitor (9) Anemia in chronic kidney disease Pt was found to have Iron deficiency, Continue replacement of iron and folow CBC (10) Hypothyroidism Continue Synthroid, TSH is normal (11) Oral thrush Continue on clotrimazole for 5 days. (12)falls PT and OT evaluated and treated him, recommended to discharge to SNF for strength and fall prevention, he was accepted at [facility], where he will be [facility] to (13) Hyperkalemia Resolved. He received sodium bicarbonate and 2 units of IV insulin in the emergency department. - Current Meds Current Meds: Current Medications Generic Name Dose Route Start Last Admin Trade Name Tonya PRN Reason Stop Dose Admin Aspirin 81 mg 11/05/20 09:00 11/08/20 08:42 Aspirin Ec 81 Mg Tablet PO 81 mg DAILY ROXANNA Administration Atorvastatin Calcium 40 mg 11/04/20 21:00 11/07/20 21:39 Atorvastatin 40 Mg Tablet PO 40 mg QPM ROXANNA Administration Carvedilol 12.5 mg 11/05/20 10:19 11/08/20 08:42 Carvedilol 12.5 Mg Tablet PO 12.5 mg DAILY ROXANNA Administration Clotrimazole 10 mg 11/04/20 14:00 11/08/20 08:43 Clotrimazole 10 Mg Lozenge MM 10 mg 5XD ROXANNA Administration Ferrous Gluconate 324 mg 11/07/20 09:00 11/08/20 08:41 Ferrous Gluconate 324 Mg Tablet PO 324 mg BID ROXANNA Administration Ampicillin Sodium 1 gm/ Sodium 100 mls @ 200 mls/hr 11/05/20 11:00 11/08/20 00:37 Chloride IV Infused Q12H ROXANNA Infusion Lactated Ringer's 1,000 mls @ 125 mls/hr 11/07/20 09:08 11/08/20 08:47 Lr IV 125 mls/hr .Q8H ROXANNA Infusion Insulin Aspart 5 unit 11/04/20 12:00 11/08/20 08:44 Insulin Aspart 300 Unit/3 Ml Pen SUBQ 5 unit TIDWM ROXANNA Administration Insulin Aspart 1 - 9 unit 11/04/20 17:00 11/08/20 08:45 Insulin Aspart 300 Unit/3 Ml Pen SUBQ 1 unit 0800,1200,1700,2100 ROXANNA Administration Protocol Insulin Glargine 14 unit 11/04/20 21:00 11/07/20 21:47 Insulin Glargine 300 Unit/3 Ml Pen SUBQ 14 unit QPM ROXANNA Administration Levothyroxine Sodium 25 mcg 11/04/20 11:00 11/08/20 08:41 Levothyroxine 25 Mcg Tablet PO 25 mcg QDAC ROXANNA Administration Nortriptyline HCl 25 mg 11/04/20 21:00 11/07/20 21:39 Nortriptyline 25 Mg Capsule PO 25 mg QPM ROXANNA Administration Ondansetron HCl 4 mg 11/04/20 09:15 11/04/20 13:15 Ondansetron 4 Mg/2 Ml Vial IVP 4 mg Q6HR PRN Administration Nausea / Vomiting Saccharomyces Boulardii 250 mg 11/06/20 08:00 11/08/20 08:40 Saccharomyces Boulardii 250 Mg Capsule PO 250 mg BIDWM ROXANNA Administration Sodium Chloride 10 ml 11/04/20 17:00 11/08/20 08:44 Sodium Chloride Flush 0.9% 10 Ml Syringe IVP Not Given 0100,0900,1700 [facility] Terazosin HCl 4 mg 11/04/20 21:00 11/07/20 21:39 Terazosin 2 Mg Capsule PO 4 mg QPM ROXANNA Administration Terazosin HCl 1 mg 11/04/20 21:00 11/07/20 21:39 Terazosin 1 Mg Capsule PO 1 mg QPM ROXANNA Administration - Lab Result Fish Bone Diagrams: 11/08/20 04:08 11/08/20 04:08 - Additional Planning My Orders: My Active Orders 11/08/20 11:21 MAGNESIUM SULFATE 2 GRAMS IV X1 Magnesium Sulfate 2 Gram [Magnesium Sulfate] 2 gm in 50 ml IV ONCE Subjective - Subjective Patient Reports: Resting Comfortably, No Complaints Objective Vital Signs: Vital Signs - 24 hr 11/07/20 11/08/20 11/08/20 16:05 00:26 07:58 Temperature 36.5 C 37 C 37.3 C Heart Rate [ 69 80 78 Brachial] Respiratory 15 18 18 Rate Blood Pressure 130/65 115/48 L 115/46 L [Left Brachial artery] O2 Saturation 99 94 95 Oxygen O2 Source Room air I&O (Last 24 Hrs): Intake and Output Totals x24h 11/06/20 11/07/20 11/08/20 23:59 23:59 23:59 Intake Total 3782.5 4155 1830.833 Output Total 3200 2950 800 Balance 582.5 1205 1030.833 General: Alert HEENT: Mucous membr. moist/pink Neck: Supple Neuro: Disoriented Cardiovascular: No murmurs Respiratory: No respiratory distress Abdomen: Soft - Results Results: Laboratory Results WBC 10.1 x10^3/uL (4.8-10.8) 11/08/20 04:08 RBC 2.60 10^6/uL (4.70-6.10) L 11/08/20 04:08 Hgb 7.3 g/dL (14.0-18.0) L 11/08/20 04:08 Hct 24.0 % (42.0-52.0) L 11/08/20 04:08 MCV 92.3 fL (80.0-94.0) 11/08/20 04:08 MCH 28.1 pg (27.0-31.0) 11/08/20 04:08 MCHC 30.4 g/dL (32.0-36.0) L 11/08/20 04:08 RDW 12.1 % (12.0-15.0) 11/08/20 04:08 Plt Count 338 10^3/uL (130-450) 11/08/20 04:08 MPV 9.1 fL (7.4-11.4) 11/08/20 04:08 Reticulocyte % (Auto) 1.15 % (0.5-2.3) 11/05/20 16:14 Neut # (Auto) 6.1 10^3/uL (1.5-6.6) 11/08/20 04:08 Lymph # (Auto) 2.6 10^3/uL (1.5-3.5) 11/08/20 04:08 Perkins # (Auto) 0.7 10^3/uL (0.0-1.0) 11/08/20 04:08 Eos # (Auto) 0.5 10^3/uL (0.0-0.7) 11/08/20 04:08 Baso # (Auto) 0.0 10^3/uL (0.0-0.1) 11/08/20 04:08 Absolute Nucleated RBC 0.00 x10^3/uL 11/08/20 04:08 Nucleated RBC % 0.0 /100WBC 11/08/20 04:08 Absolute Retic 0.037 10^6/uL (0.020-0.110) 11/05/20 16:14 VBG pH 7.323 (7.31-7.41) 11/04/20 08:10 VBG pCO2 37.9 mmHg (41-51) L 11/04/20 08:10 VBG pO2 20.4 mmHg (25-47) L 11/04/20 08:10 VBG HCO3 19.2 mmol/L (23-28) L 11/04/20 08:10 VBG Total CO2 20.4 mmol/L (24-29) L 11/04/20 08:10 VBG O2 Saturation 32.9 % (60-80) L 11/04/20 08:10 VBG Base Excess -6.2 mmol/L (-2 - +2) L 11/04/20 08:10 Sodium 141 mmol/L (135-145) 11/08/20 04:08 Potassium 4.2 mmol/L (3.5-5.0) 11/08/20 04:08 Chloride 113 mmol/L (101-111) H 11/08/20 04:08 Carbon Dioxide 21 mmol/L (21-32) 11/08/20 04:08 Anion Gap 7.0 (6-13) 11/08/20 04:08 BUN 38 mg/dL (6-20) H 11/08/20 04:08 Creatinine 2.2 mg/dL (0.6-1.2) H 11/08/20 04:08 Estimated GFR (MDRD) 29 (>89) L 11/08/20 04:08 Glucose 176 mg/dL (70-100) H 11/08/20 04:08 POC Whole Bld Glucose 168 mg/dL (70 - 100) H 11/08/20 07:55 Estimat Average Glucose 189 mg/dL (70-100) H 11/05/20 05:04 Hemoglobin A1c % 8.2 % (4.27-6.07) H 11/05/20 05:04 Lactic Acid 0.9 mmol/L (0.5-2.2) 11/04/20 08:10 Calcium 7.9 mg/dL (8.5-10.3) L 11/08/20 04:08 Phosphorus 3.0 mg/dL (2.5-4.6) 11/08/20 04:08 Magnesium 1.5 mg/dL (1.7-2.8) L 11/08/20 04:08 Iron 9 ug/dL (45-182) L 11/05/20 15:35 TIBC 169 ug/dL (250-450) L 11/05/20 15:35 % Saturation 5 % (20-50) L 11/05/20 15:35 Transferrin 121 mg/dL (180-329) L 11/05/20 15:35 Ferritin 187.9 ng/mL (23.9-336.2) 11/05/20 15:35 Total Bilirubin 0.6 mg/dL (0.2-1.0) 11/04/20 08:10 AST 42 IU/L (10-42) 11/04/20 08:10 ALT 25 IU/L (10-60) 11/04/20 08:10 Alkaline Phosphatase 86 IU/L (42-121) 11/04/20 08:10 Lactate Dehydrogenase 151 IU/L (91-225) 11/05/20 15:35 Troponin I High Sens 10.7 ng/L (2.3-19.7) 11/04/20 08:10 Total Protein 7.8 g/dL (6.7-8.2) 11/04/20 08:10 Albumin 3.2 g/dL (3.2-5.5) 11/04/20 08:10 Globulin 4.6 g/dL (2.1-4.2) H 11/04/20 08:10 Albumin/Globulin Ratio 0.7 (1.0-2.2) L 11/04/20 08:10 Lipase 25 U/L (22-51) 11/04/20 08:10 Vitamin B12 659 pg/mL (180-914) 11/05/20 15:35 TSH 1.61 uIU/mL (0.34-5.60) 11/05/20 05:04 Urine Color LIGHT YELLOW 11/04/20 09:20 Urine Clarity CLOUDY (CLEAR) 11/04/20 09:20 Urine pH 6.0 PH (5.0-7.5) 11/04/20 09:20 Ur Specific [place] 1.015 (1.002-1.030) 11/04/20 09:20 Urine Protein 100 mg/dL (NEGATIVE) H 11/04/20 09:20 Urine Glucose (UA) NEGATIVE mg/dL (NEGATIVE) 11/04/20 09:20 Urine Ketones NEGATIVE mg/dL (NEGATIVE) 11/04/20 09:20 Urine Occult Blood SMALL (NEGATIVE) H 11/04/20 09:20 Urine Nitrite NEGATIVE (NEGATIVE) 11/04/20 09:20 Urine Bilirubin NEGATIVE (NEGATIVE) 11/04/20 09:20 Urine Urobilinogen 0.2 (NORMAL) E.U./dL (NORMAL) 11/04/20 09:20 Ur Leukocyte Esterase MODERATE (NEGATIVE) H 11/04/20 09:20 Urine RBC 6-10 /HPF (0-5) H 11/04/20 09:20 Urine WBC >25 /HPF (0-3) H 11/04/20 09:20 Ur Squamous Epith Cells NONE SEEN (<= Few) 11/04/20 09:20 Urine Bacteria Few /HPF (None Seen) 11/04/20 09:20 Ur Microscopic Review INDICATED 11/04/20 09:20 Urine Culture Comments INDICATED 11/04/20 09:20 Nasal Adenovirus (PCR) NOT DETECTED 11/04/20 09:40 Nasal B. parapertussis DNA (PCR) NOT DETECTED 11/04/20 09:40 Nasal Coronavir 229E PCR NOT DETECTED 11/04/20 09:40 Nasal Coronavir HKU1 PCR NOT DETECTED 11/04/20 09:40 Nasal Coronavir NL63 PCR NOT DETECTED 11/04/20 09:40 Nasal Coronavir OC43 PCR NOT DETECTED 11/04/20 09:40 Nasal Enterovir/Rhinovir PCR NOT DETECTED 11/04/20 09:40 Nasal Influenza B PCR NOT DETECTED 11/04/20 09:40 Nasal Influenza A PCR NOT DETECTED 11/04/20 09:40 Nasal Parainfluen 1 PCR NOT DETECTED 11/04/20 09:40 Nasal Parainfluen 2 PCR NOT DETECTED 11/04/20 09:40 Nasal Parainfluen 3 PCR NOT DETECTED 11/04/20 09:40 Nasal Parainfluen 4 PCR NOT DETECTED 11/04/20 09:40 Nasal RSV (PCR) NOT DETECTED 11/04/20 09:40 Nasal B.pertussis DNA PCR NOT DETECTED 11/04/20 09:40 Nasal C.pneumoniae (PCR) NOT DETECTED 11/04/20 09:40 Jesus Human Metapneumo PCR NOT DETECTED 11/04/20 09:40 Nasal M.pneumoniae (PCR) NOT DETECTED 11/04/20 09:40 Nasal SARS-CoV-2 (PCR) NOT DETECTED 11/04/20 09:40 Stl Occult Blood (IFOB) NEGATIVE (NEGATIVE) 11/07/20 16:38 Serum Ketones NEGATIVE (NEGATIVE) 11/04/20 08:10 Coronavirus (PCR) NEGATIVE 11/07/20 12:50
[2020-11-08] MEDS: AMPICILLIN 1 GM in SODIUM CHLORIDE 0.9% MINIBAG 100 ML IV SCH (11:30)
[2020-11-08] MEDS ORDERED: LACTATED RINGERS 1,000 ML IV SCH (11:34)
[2020-11-08] MEDS: NORTRIPTYLINE 25 MG CAPSULE PO SCH (21:33)
[2020-11-08] MEDS: TERAZOSIN 1 MG CAPSULE PO SCH (21:33)
[2020-11-08] MEDS: INSULIN GLARGINE 300 UNIT/3 ML PEN SUBQ SCH (21:33)
[2020-11-08] MEDS: ATORVASTATIN 40 MG TABLET PO SCH (21:33)
[2020-11-08] MEDS: AMOX/CLAV 875 MG/125 MG TABLET PO SCH (21:33)
[2020-11-08] MEDS: TERAZOSIN 2 MG CAPSULE PO SCH (21:49)
[2020-11-09] MEDS: SODIUM CHLORIDE FLUSH 0.9% 10 ML SYRINGE IVP SCH ×2 (06:19→08:43)
[2020-11-09] MEDS: CLOTRIMAZOLE 10 MG LOZENGE MM SCH ×2 (06:20→10:42)
[2020-11-09] MEDS: LEVOTHYROXINE 25 MCG TABLET PO SCH (06:20)
[2020-11-09] MEDS: INSULIN ASPART 300 UNIT/3 ML PEN SUBQ SCH ×4 (08:42→11:55)
[2020-11-09] MEDS: AMOX/CLAV 875 MG/125 MG TABLET PO SCH (08:43)
[2020-11-09] MEDS: FERROUS GLUCONATE 324 MG TABLET PO SCH (08:43)
[2020-11-09] MEDS: SACCHAROMYCES BOULARDII 250 MG CAPSULE PO SCH (08:43)
[2020-11-09] MEDS: carvediloL 12.5 MG TABLET PO SCH (08:43)
[2020-11-09] MEDS: ASPIRIN EC 81 MG TABLET PO SCH (08:43)
--- NOTE | 2020-11-09 09:29 | Discharge Plan ---
"Discharge Plan for SNF / MA[facility] - Discharge Plan And Transition Orders Problem Reviewed?: Yes Disposition: 03 SNF DC/Xfer Condition: Stable Allergies and Adverse Reactions: Allergies Allergy/AdvReac Type Severity Reaction Status Date / Time No Known Drug Allergies Allergy Verified 11/04/20 08:08 Health Concerns: Patient admitted with severe acute kidney failure from a UTI, and volume depletion plus obstructive uropathy from prostatic hypertrophy. He needed 5 days of IV antibiotics and had slow recovery of his creatinine back to his baseline CKD. Many of his medications have been changed. He now needs a chronic indwelling Evangelista and meds for the prostate. He needs Urology outpatient management. He is being discharged to SNF for physical therapy rehab, to finish a course of oral antibiotics, and needs Evangelista care. Plan of Treatment: As above. Care Goals: Improvement in symptoms and stabilization are the goals. Assessment: Written instructions are provided at discharge for the SNF. - SNF / [facility] Transition Orders Admit to (Facility): [facility] Discharge Diagnosis: (1) Acute on chronic renal failure Improved, back to his baseline CKD (2) Hyperkalemia Resolved with treatment (3) Bladder outlet obstruction He has a Evangelista in place. He will need new outpatient management with Urology (4) BPH Meds adjusted (5) Enterococcus Urinary tract infection Needs to finish a course of antibiotics plus probiotics (6) Insulin dependent type 2 diabetes mellitus Stable (7) Dementia without behavioral disturbances Stable (8) Chronic heart failure with preserved ejection fraction Stable (9) Hypertension He is currently normotensive, despite stopping some of his previous antihypertensives. (10) Iron deficiency anemia Iron replacement ordered (11) Hypothyroidism Stable on Rx (12) Oral thrush Finished clotrimazole for 5 days. (13) Hypomagnesemia Resolved with replacement (14) Frequent falls PT and OT evaluated and recommended to discharge to SNF for rehab, strengthening and fall prevention (15) Code status: DNR Medicare Certification Statement: I certify that [facility] is medically necessary on a continuing basis for any of the conditions for which she/he is receiving care during hospitalization. Notify PCP of admission and forward orders to primary provider for signature. Weight on admission and: Monthly Other Notification Orders: Call PCP immediately if patient develops dyspnea, chest pain/tightness or edema. House Bowel Program: Yes Additional Bowel Program Orders: If no BM after 2 days, nurse may give M.O.M. 30ml PO PRN and/or ducolax Supp 1 RI and/or ROMAN 250mg P.O., and/or senna 1-2 tabs PO. On day 3 nurse may give repeat above order until residents constipation is resolved. Annual Influenza Vaccine (between May 14 and December 11): Yes Two-step PPD per [facility] [phone] or approved exception documents: Yes Treatments & Other Orders: Daily PT and OT Medication Orders: PLEASE REFER TO THE DISCHARGE MEDICATION LIST. Insulin Orders?: Yes - Medications New Prescriptions: Amox/Clav 875/125 [Augmentin 875/125 Tab] 1 tab PO BID #34 tab Ferric Citrate [Auryxia] 210 mg PO DAILY #30 tab Saccharomyces Boulardii [Florastor] 250 mg PO BIDWM #34 cap Insulin Glargine [Lantus Solostar] 14 unit SUBQ QPM #1 pe Insulin Aspart [NovoLOG] 5 unit SUBQ TIDWM #1 pe Insulin Aspart [NovoLOG] 1 - 9 unit SUBQ 0800,1200,1700,2100 #1 pe - Diet Type: Geriatric (Diabetic diet) Texture: Dysphagia mech Liquids: Thin May have monthly special meal: Yes - Therapies | Activity Therapy: Evaluation | Treat if indicated: PT, OT Rehabilitation Potential: Maximize functional status Activity: Activity as Tolerated Assistance Devices: Walker Follow Up: See PCP in 1-2 weeks for hospital follow-up and for referral to Urology."
[2020-11-09 10:03] LABS: CALCIUM 7.3 mg/dL (8.5-10.3); CREATININE 1.9 mg/dL (0.6-1.2); POTASSIUM 4.2 mmol/L (3.5-5.0)
--- NOTE | 2020-11-09 11:01 | DISCHARGE SUMMARY ---
Discharge Summary Admit Date: 11/04/20 Discharge Date: 11/09/20 Discharging Provider: Dr Ca Witt Primary Care Provider: Dr Cale Nobles Code Status: Do Not Attempt Resuscitation Condition at Discharge: Stable Discharge Disposition: SNF DC/Xfer Discharge Facility Name: [facility] History of Present Illness: From the admission H&P of Dr Baldo Beauchamp: This is a 80-year-old male with a past medical history significant for type 2 diabetes mellitus treated with insulin, chronic diastolic heart failure, hypertension, chronic kidney disease, dementia who presents today from home due to multiple falls. Patient does have dementia and is a poor historian at baseline. He believes he is here to the hospital because of his diabetes. When asked why he thinks his diabetes brought him here, he tells me it was his blood sugars. I asked him what his blood glucose was and he felt that it was around 155. I asked him why he thought he should come to the hospital if his blood glucose was 155 and he was unable to tell me. He did give me permission to speak with his who told me that the patient was discharged from [facility] on October 20. Since he has been home for the past 2 weeks, he has had progressive weakness with multiple falls. He fell a couple of days ago but did not want her to call 911 and so neighbors helped him get back into a chair. She states that he continues to fall and has become increasingly weak and so she brought him to the emergency department today. The patient states he does feel weak but denies any focal deficits. He feels a little more confused than usual and his tells me that he may be slightly confused but he does have dementia at baseline. The patient denies any chest pain or difficulty breathing. He denies any difficulty urinating, dysuria, urgency. His tells me that he has attempted to urinate multiple times over the past week and has had increasing frequency and urgency. The patient denies any abdominal pain, nausea, vomiting. He does report feeling thirsty. He denies any poor oral intake. The emergency department, he was found to be hemodynamically stable. His labs were significant for a creatinine of 5.4, BUN of 95, potassium of 6.2. Troponin and lactic acid were normal. He was complaining of abdominal discomfort and the emergency room provider felt a mass in his lower abdomen and so a CT of the abdomen and pelvis was obtained without contrast which revealed a distended bladder with moderate bilateral hydronephrosis and concerns for bladder outlet obstruction. He was given 3 units of IV insulin, sodium bicarbonate and a liter of IV fluids in the emergency department. Patient has made it clear in the past that he does not want dialysis and he is a DNR with limited interventions. I also discussed this with his who confirms this. He has a POLST form which states he is a DNR with limited interventions. Given the above findings, Hospitalist team was consulted for admission. - HOSPITAL COURSE Hospital Course: (1) Acute on chronic renal failure He received many days of iv hydration, and the iv rate was slowly weaned down over his final 3 days. The BUN/creat improved, back to his baseline CKD, BUN/creat at discharge was 24/1.9. (2) Hyperkalemia This resolved with treatment described. (3) Bladder outlet obstruction He required a Evangelista be placed. He requested it be removed and he again had urinary retention from obstruction. The Evangelista was reinserted and he will need new outpatient evaluation and management with Urology. (4) BPH His Hytrin med was increased and the new Evangelista was needed and continued at discharge. (5) Enterococcus Urinary tract infection His U/A was abnormal and urine culture grew Enterococcus. He was transitioned from iv antibiotics to oral antibiotics based on sensitivities and will need to finish a long course of Augmentin treatment plus probiotics. (6) Insulin dependent type 2 diabetes mellitus His A1c was 8.2. He was managed with a carb-controlled diet, Insulin and sliding Insulin coverage. (7) Dementia without behavioral disturbances This was stable. (8) Chronic heart failure with preserved ejection fraction This was stable, since he was getting careful iv rehydration. (9) Hypertension He was normotensive, despite stopping some of his previous antihypertensives, due to volume depletion. He was discharged on the new med list with fewer BP meds. (10) Iron deficiency anemia Iron replacement was started. Hgb was 9.9 at admission>> 8.6 at mid- hospitalization>> 7.3 at discharge. He had received and was (+) 7L of fluid during this hospital stay. (11) Hypothyroidism Stable TSH of 1.61 on his home therapy, which was continued. (12) Oral thrush He received and finished oral clotrimazole for 5 days. (13) Hypomagnesemia Resolved with replacement (14) Frequent falls PT and OT evaluated and recommended to discharge to SNF for rehab, for strengthening and fall prevention. - ALLERGIES Allergies/Adverse Reactions: Allergies Allergy/AdvReac Type Severity Reaction Status Date / Time No Known Drug Allergies Allergy Verified 11/04/20 08:08 - MEDICATIONS Home Medications: Ambulatory Orders Medication Instructions Recorded Confirmed Atorvastatin Calcium 40 mg PO QPM 11/15/17 11/04/20 Levothyroxine [Synthroid] 25 mcg PO .DAILYAC 11/15/17 11/04/20 Nortriptyline [Pamelor] 25 mg PO QPM 11/15/17 11/04/20 Terazosin [Hytrin] 5 mg PO QPM 11/15/17 11/04/20 Docusate Sodium [Dss] 250 mg PO QPM 10/18/19 11/04/20 carvediloL [Coreg] 12.5 mg PO DAILY 09/13/20 11/04/20 Acetaminophen/Diphenhydramine 2 tab PO QPM PRN 09/16/20 11/04/20 [Acetaminophen-Diphenhyd 500-25] Aspirin EC [Ecotrin] 81 mg PO DAILY 09/17/20 11/04/20 Amox/Clav 875/125 [Augmentin 1 tab PO BID #34 tab 11/09/20 875/125 Tab] Ferric Citrate [Auryxia] 210 mg PO DAILY #30 tab 11/09/20 Insulin Aspart [NovoLOG] 1 - 9 unit SUBQ 11/09/20 0800,1200,1700,2100 #1 pe Insulin Aspart [NovoLOG] 5 unit SUBQ TIDWM #1 pe 11/09/20 Insulin Glargine [Lantus Solostar] 14 unit SUBQ QPM #1 pe 11/09/20 Saccharomyces Boulardii [Florastor] 250 mg PO BIDWM #34 cap 11/09/20 - PHYSICAL EXAM AT DISCHARGE General Appearance: positive: No acute distress, Alert, Other (Obese elderly white male.) Eyes Bilateral: positive: Normal inspection, EOMI ENT: positive: ENT inspection nml, No signs of dehydration Neck: positive: Nml inspection, No JVD Respiratory: positive: No respiratory distress, Breath sounds nml Cardiovascular: positive: Regular rate & rhythm, No murmur Abdomen: positive: Non-tender, Nml bowel sounds, No distention Skin: positive: Warm, Dry, Pallor Extremities: positive: No pedal edema Neurologic/Psychiatric: positive: Motor nml (except he had poor gait.), Disoriented to place, Disoriented to time - LABS Result Diagrams: 11/08/20 04:08 11/09/20 09:40 - DIAGNOSTIC IMAGING Diagnostic Imaging Results: Final report reviewed - FOLLOW UP Follow Up: See PCP after discharge from SNF. - TIME SPENT Time Spent in Discharge (Minutes): 60
[2020-11-09 12:23] VITALS: BP 149/71
== END 2020-11-09 12:46 | DRG 683 ==
LOC: EDUNIT# → ED 07:36 → MS3 09:15
PROVIDERS: ADMIT Internal Medicine; ATTEND Internal Medicine
DX: N17.9 Acute kidney failure, unspecified (principal); I13.0 Hypertensive heart and chronic kidney disease with heart failure and stage 1 through stage 4 chronic kidney disease, or unspecified chronic kidney disease; I50.32 Chronic diastolic (congestive) heart failure; R33.9 Retention of urine, unspecified; N13.8 Other obstructive and reflux uropathy; N30.00 Acute cystitis without hematuria; F03.91 Unspecified dementia, unspecified severity, with behavioral disturbance; B37.0 Candidal stomatitis; B95.2 Enterococcus as the cause of diseases classified elsewhere; N13.30 Unspecified hydronephrosis; I12.9 Hypertensive chronic kidney disease with stage 1 through stage 4 chronic kidney disease, or unspecified chronic kidney disease; E11.22 Type 2 diabetes mellitus with diabetic chronic kidney disease; N18.9 Chronic kidney disease, unspecified; E87.5 Hyperkalemia; D50.9 Iron deficiency anemia, unspecified; N40.1 Benign prostatic hyperplasia with lower urinary tract symptoms; D63.1 Anemia in chronic kidney disease; E03.9 Hypothyroidism, unspecified; E83.42 Hypomagnesemia; E86.9 Volume depletion, unspecified; R53.83 Other fatigue; E78.00 Pure hypercholesterolemia, unspecified; N39.498 Other specified urinary incontinence; R35.0 Frequency of micturition; F32.9 Major depressive disorder, single episode, unspecified; F41.9 Anxiety disorder, unspecified; G89.29 Other chronic pain; M54.9 Dorsalgia, unspecified; M19.90 Unspecified osteoarthritis, unspecified site; H54.7 Unspecified visual loss; Z66 Do not resuscitate; Z20.822 Contact with and (suspected) exposure to COVID-19; Z79.82 Long term (current) use of aspirin; Z91.81 History of falling; Z79.4 Long term (current) use of insulin; Z79.899 Other long term (current) drug therapy
CPT/HCPCS: 36415; 51702; 71045; 74176; 80048; 80053; 81001; 82009; 82274; 82607; 82728; 82803; 83036; 83540; 83605; 83615; 83690; 83735; 84100; 84443; 84466; 84484; 85025; 85045; 87077; 87086; 87181; 87631; 93005; 96360; 96361; 97116; 97162; 97166; 97530; 99284; 99285; A9270; J1815; J7120; U0004; 0202U; 81003; 82272; J8499

== ENCOUNTER 2021-02-11 08:00 | Outpatient (CLI) | payer MEDICARE, OTHER, MEDICAID ==
[2021-02-11 23:38] LABS: CALCIUM 8.4 mg/dL (8.5-10.3); CREATININE 3.9 mg/dL (0.6-1.2); POTASSIUM 3.4 mmol/L (3.5-5.0)
== END 2021-02-11 23:59 | disposition home or self-care (01) ==
LOC: LAB.R 08:00
PROVIDERS: ATTEND Family Medicine
DX: N18.4 Chronic kidney disease, stage 4 (severe) (principal)
CPT/HCPCS: 80048

== ENCOUNTER → 2021-02-11 | Outpatient (CLI) | payer MEDICARE, OTHER, MEDICAID ==
[2021-02-11 23:38] LABS: CALCIUM 8.4 mg/dL (8.5-10.3); CREATININE 3.9 mg/dL (0.6-1.2); POTASSIUM 3.4 mmol/L (3.5-5.0)
== END ==
LOC: LAB.R 08:00
PROVIDERS: ATTEND Family Medicine
DX: N18.4 Chronic kidney disease, stage 4 (severe) (principal)
CPT/HCPCS: 80048